=== PATIENT | female | born 1960 | race Caucasian/White ===

== ENCOUNTER 2019-02-18 13:26 | Inpatient (IN) | payer OTHER ==
[~2019-02-18] VITALS: Ht 157.5 cm; Wt 43.6 kg
[~2019-02-18 13:26] MED LIST: ACET325 PO; ALBU90OI INH; ASPI81CH PO; CEPH500 PO; CETI10; CIPR250 PO; DIAZ5 PO; FOLI1 PO; GUAPHELA PO; HYDACE10B PO; HYDACE5 PO; HYDGUAL120 PO; HYDR1TAB94 PO; IBUP800 PO; K-Dur20 MEQ PO; LOPE2C PO; LORA.5; MAGOXI400 PO; MECL25 PO; MULTI VITAMIN1 EACH PO; MULVITMIND PO; Mag-G500 MG PO; NAPR375 PO; NAPR500 PO; NICO14TP TOP; NICO21TP TD; Naprosyn500 MG PO; OXYACE5T PO; PENVK500 PO; POTCHL10ER PO; POTCHL20ER PO; PROCODE120 PO; PROM25 PO; RXHYDACE PO; RXPENVK250 PO; SACC250C PO; SULTRIDS PO; THIA100 PO; TRAM50 PO; Zofran Odt8 MG SL
[2019-02-18] MEDS ORDERED: OMEP20ER PO (14:08)
[2019-02-18 14:10] LABS: BASOPHILS ABSOLUTE AUTO 0.04 K/mm3 (0.00-0.23); BASOPHILS PERCENT AUTO 1 % (0-2); EOSINOPHILS ABSOLUTE AUTO 0.05 K/mm3 (0.00-0.68); EOSINOPHILS PERCENT AUTO 1 % (0-6); Hematocrit 38.8 % (33.0-51.0); Hemoglobin 13.4 g/dL (11.5-16.0); IMMATURE GRAN ABSOLUTE AUTO 0.11 K/mm3 (0.00-0.10); IMMATURE GRAN PERCENT AUTO 1 % (0-1); LYMPHOCYTES ABSOLUTE AUTO 1.55 K/mm3 (0.84-5.20); LYMPHOCYTES PERCENT AUTO 19 % (21-46); MONOCYTES ABSOLUTE AUTO 1.09 K/mm3 (0.16-1.47); MONOCYTES PERCENT AUTO 14 % (4-13); Mean Corpuscular HGB 30.7 pg (26.0-34.0); Mean Corpuscular HGB Conc 34.5 g/dL (31.5-36.5); Mean Corpuscular Volume 89 fL (80-100); Mean Platelet Volume 9.1 fL (9.1-12.4); NEUTROPHILS ABSOLUTE AUTO 5.13 K/mm3 (1.96-9.15); NEUTROPHILS PERCENT AUTO 64 % (41-73); Platelet Count 291 K/mm3 (150-400); RDW Coefficient Variation 12.9 % (11.7-14.2); RDW Standard Deviation 42.4 fL (35.1-46.3); Red Blood Cell Count 4.37 M/mm3 (3.80-5.20); White Blood Cell Count 7.97 K/mm3 (4.00-11.30)
[2019-02-18 14:20] LABS: Alanine Aminotransfer (ALT/SGP 57 U/L (12-78); Albumin, Blood 3.6 g/dL (3.4-5.0); Albumin/Globulin Ratio 0.9 (0.8-1.8); Alk Phos 98 U/L (50-136); Anion Gap 10 mmol/L (6-16); Aspartate Aminotrans (AST/SGOT 73 U/L (12-37); Bilirubin, Total 0.4 mg/dL (0.1-1.0); Blood Urea Nitrogen 5 mg/dL (8-24); CO2, Blood 28 mmol/L (21-32); Calcium, Blood 8.7 mg/dL (8.5-10.1); Chloride, Blood 92 mmol/L (98-108); Creatinine, Blood 0.42 mg/dL (0.40-1.00); Ethanol (Alcohol), Blood, Med <3 mg/dL; Globulin, Blood 3.9 g/dL (2.2-4.0); Glomerular Filtration Rate >60 (60-); Glucose, Blood 144 mg/dL (70-99); Magnesium, Blood 1.7 mg/dL (1.6-2.4); Sodium, Blood 130 mmol/L (136-145); Total Protein, Blood 7.5 g/dL (6.4-8.2)
[2019-02-18 14:21] LABS: International Normalized Ratio 0.98; Prothrombin Time Results 10.4 Sec (9.7-11.5)
--- NOTE | 2019-02-18 17:00 | NUR ---
ASSUMED CARE: PT NEW ADMIT FROM ED. DENIES ABDOMINAL PAIN. STATES SHE HAS 4-6 16OZ BEERS A DAY, LAST ONE THIS AM. STATES SHE HAS TREMORS WITHOUT ALCOHOL. DISCUSSED WITH HER THE NEED FOR HONESTY WITH HER SYMPTOMS AND THAT WE ARE NOT HERE TO CURING ROOM SUPERVISOR BUT TO KEEP HER SAFE. PT INDEPENDENT AT THIS TIME, CIWA 1.
[2019-02-18] MEDS ORDERED: BAYER BACK & B1 EACH PO (17:11)
--- NOTE | 2019-02-18 18:46 | NUR ---
SHIFT SUMMARY: PT ALERT AND ORIENTED BUT FORGETFUL AT TIMES. CURRENT CIWA [address] LUTZ IN ANTICIPATION OF WORSENING CIWA DUE TO TREMULOUS WHEN WITHOUT FOR TOO LONG FAMILY AT BEDSIDE. NO ACUTE NEEDS AT THIS TIME.
--- NOTE | 2019-02-19 04:07 | NUR ---
SHIFT SUMMARY PT HAD NO ISSUES NOTED THIS SHIFT. PT WENT OUT TO SMOKE AND HAS BEEN SLEEPING SINCE RETURNING. PT CURRENTLY SLEEPING IN NO DISTRESS. CALL LIGHT IN REACH.
[2019-02-19 05:24] LABS: BASOPHILS ABSOLUTE AUTO 0.05 K/mm3 (0.00-0.23); BASOPHILS PERCENT AUTO 1 % (0-2); EOSINOPHILS ABSOLUTE AUTO 0.04 K/mm3 (0.00-0.68); EOSINOPHILS PERCENT AUTO 1 % (0-6); Hematocrit 36.1 % (33.0-51.0); Hemoglobin 11.6 g/dL (11.5-16.0); IMMATURE GRAN PERCENT AUTO 2 % (0-1); LYMPHOCYTES ABSOLUTE AUTO 1.59 K/mm3 (0.84-5.20); LYMPHOCYTES PERCENT AUTO 29 % (21-46); MONOCYTES ABSOLUTE AUTO 0.77 K/mm3 (0.16-1.47); MONOCYTES PERCENT AUTO 14 % (4-13); Mean Corpuscular HGB 29.2 pg (26.0-34.0); Mean Corpuscular HGB Conc 32.1 g/dL (31.5-36.5); Mean Corpuscular Volume 91 fL (80-100); NEUTROPHILS ABSOLUTE AUTO 2.95 K/mm3 (1.96-9.15); NEUTROPHILS PERCENT AUTO 54 % (41-73); Platelet Count 207 K/mm3 (150-400); RDW Coefficient Variation 13.2 % (11.7-14.2); RDW Standard Deviation 44.1 fL (35.1-46.3); Red Blood Cell Count 3.97 M/mm3 (3.80-5.20)
[2019-02-19 05:48] LABS: Magnesium, Blood 1.6 mg/dL (1.6-2.4)
[2019-02-19 05:58] LABS: Alanine Aminotransfer (ALT/SGP 43 U/L (12-78); Albumin, Blood 2.8 g/dL (3.4-5.0); Albumin/Globulin Ratio 0.8 (0.8-1.8); Alk Phos 76 U/L (50-136); Anion Gap 6 mmol/L (6-16); Aspartate Aminotrans (AST/SGOT 60 U/L (12-37); Bilirubin, Total 0.3 mg/dL (0.1-1.0); Blood Urea Nitrogen 5 mg/dL (8-24); Bun/Creatinine Ratio 11.4 (12.0-20.0); CO2, Blood 26 mmol/L (21-32); Calcium, Blood 8.1 mg/dL (8.5-10.1); Chloride, Blood 102 mmol/L (98-108); Creatinine, Blood 0.44 mg/dL (0.40-1.00); Globulin, Blood 3.3 g/dL (2.2-4.0); Glomerular Filtration Rate >60 (60-); Glucose, Blood 72 mg/dL (70-99); Potassium, Blood 3.4 mmol/L (3.5-5.5); Sodium, Blood 134 mmol/L (136-145); Total Protein, Blood 6.1 g/dL (6.4-8.2)
--- NOTE | 2019-02-19 07:35 | NUR ---
ASSUMED CARE: PT RESTING QUIETLY AT THIS TIME. NO ACUTE NEEDS OR DISTRESS NOTED
--- NOTE | 2019-02-19 13:00 | NUR ---
DR LUTZ CAME TO SEE PT. AWARE OF LIPASE, STATED PT CAN HAVE FULL LIQUID DIET. ALSO INFORMED DR LUTZ THAT FENTANYL DID NOT HELP WITH PAIN. DR AUGUSTE NEW ORDERS
--- NOTE | 2019-02-19 15:48 | NUR ---
PT'S STATES PAIN MEDS DID NOT HELP AND THAT SHE WOULD LIKE TO HAVE THE DILAUDID AGAIN. TOLD PT THAT DUE TO BEING DISCHARGED HOME EVENTUALLY, WE NEED TO FIND HER AN ORAL PAIN MED THAT WORKS FOR HER. ALSO REMINDED PT THAT SHE HAS BEEN GOING OUT TO SMOKE AND THAT KIND OF ACTIVITY PROBABLY MAKES THE ABDOMINAL PAIN WORSE. OFFERED TO GET HER A NICOTINE PATCH BUT SHE REFUSED.
--- NOTE | 2019-02-19 17:08 | NUR ---
SHIFT SUMMARY: PT'S HIGHEST CIWA HAS BEEN 6. SOME CONFUSION AND AGITATION NOTED. HAS BEEN GOING OUT TO SMOKE FREQUENTLY. MEDICATED X2 FOR PAIN. PT REFUSES NICOTINE PATCH AND PAIN APPEARS TO BE WORSE AFTER SHE GOES OUT TO SMOKE. ADVANCED TO FULL LIQUIDS. NO FURTHER NEEDS OR CONCERNS AT THIS TIME.
[2019-02-20 04:48] LABS: BASOPHILS ABSOLUTE AUTO 0.04 K/mm3 (0.00-0.23); BASOPHILS PERCENT AUTO 1 % (0-2); EOSINOPHILS ABSOLUTE AUTO 0.07 K/mm3 (0.00-0.68); EOSINOPHILS PERCENT AUTO 1 % (0-6); Hemoglobin 12.1 g/dL (11.5-16.0); IMMATURE GRAN ABSOLUTE AUTO 0.12 K/mm3 (0.00-0.10); IMMATURE GRAN PERCENT AUTO 2 % (0-1); LYMPHOCYTES ABSOLUTE AUTO 1.94 K/mm3 (0.84-5.20); LYMPHOCYTES PERCENT AUTO 39 % (21-46); MONOCYTES ABSOLUTE AUTO 0.83 K/mm3 (0.16-1.47); MONOCYTES PERCENT AUTO 17 % (4-13); Mean Corpuscular HGB 29.5 pg (26.0-34.0); Mean Corpuscular HGB Conc 32.7 g/dL (31.5-36.5); Mean Corpuscular Volume 90 fL (80-100); Mean Platelet Volume 9.1 fL (9.1-12.4); NEUTROPHILS ABSOLUTE AUTO 1.93 K/mm3 (1.96-9.15); NEUTROPHILS PERCENT AUTO 39 % (41-73); Platelet Count 206 K/mm3 (150-400); RDW Coefficient Variation 13.2 % (11.7-14.2); White Blood Cell Count 4.93 K/mm3 (4.00-11.30)
--- NOTE | 2019-02-20 05:00 | NUR ---
SHIFT SUMMARY PT HAD SOME ABD PAIN. TX PER EMAR WITH GOOD RELIEF. PT IS FORGETFUL AND HAS SHORT PERIODS OF CONFUSION. PT SLEPT T/O SHIFT. PT CURRENTLY AWAKE IN NO DISTRESS. CALL LIGHT IN REACH.
[2019-02-20 05:18] LABS: Alanine Aminotransfer (ALT/SGP 43 U/L (12-78); Albumin, Blood 2.8 g/dL (3.4-5.0); Albumin/Globulin Ratio 0.9 (0.8-1.8); Alk Phos 72 U/L (50-136); Anion Gap 8 mmol/L (6-16); Aspartate Aminotrans (AST/SGOT 58 U/L (12-37); Bilirubin, Total 0.3 mg/dL (0.1-1.0); Blood Urea Nitrogen 3 mg/dL (8-24); Bun/Creatinine Ratio 7.7 (12.0-20.0); CO2, Blood 24 mmol/L (21-32); Calcium, Blood 8.1 mg/dL (8.5-10.1); Chloride, Blood 107 mmol/L (98-108); Creatinine, Blood 0.39 mg/dL (0.40-1.00); Globulin, Blood 3.1 g/dL (2.2-4.0); Glomerular Filtration Rate >60 (60-); Glucose, Blood 69 mg/dL (70-99); Phosphorus, Blood 2.8 mg/dL (2.5-4.9); Potassium, Blood 3.5 mmol/L (3.5-5.5); Sodium, Blood 139 mmol/L (136-145); Total Protein, Blood 5.9 g/dL (6.4-8.2)
--- NOTE | 2019-02-20 08:41 | NUR ---
CALLED DR. BLAIR PT IS REQUESTING ADVANCE IN HER DIET. DR. BLAIR WILL BE IN TO SEE PATIENT THIS A.M. NO NEW ORDERS RECEIVED.
--- NOTE | 2019-02-20 10:29 | NUR ---
ATE APPROXIMATELY 25% OF REGULAR DIET APPROX 1 HOUR AGO. SITTING UP BED STATES "I'M NOT HAVING ANY PAIN I FEEL JUST FINE" TALKING WITH ALETHEA SET OFF PRESS OPERATOR. NO NAUSEA, VOMITING OR ABDOMINAL PAIN. OUT TO SMOKE X1.
[2019-02-20] MEDS ORDERED: NEPHRO-VITE RX1 EACH PO (11:34)
[2019-02-20] MEDS ORDERED: FOLI1 PO (11:35)
[2019-02-20] MEDS ORDERED: B-1100 MG PO (11:36)
[2019-02-20] MEDS ORDERED: ONDA4ODT (11:37)
[2019-02-20] MEDS ORDERED: ONDA4ODT MM (11:38)
[2019-02-20] MEDS ORDERED: HYDR1TAB94 PO (11:39)
[2019-02-20] MEDS ORDERED: OMEP20ER PO (11:40)
--- NOTE | 2019-02-20 13:20 | NUR ---
RFA IV DISCONTINUED AND WNL. SITE CARE GIVEN.
--- NOTE | 2019-02-20 13:28 | NUR ---
PT WAITING FOR RIDE FROM FAMILY.
--- NOTE | 2019-02-20 14:43 | NUR ---
DISCHARGE NOTE PT DISCHARGED AMBULATORY POV WITH SISTER. IV DISCONTINUED INTACT. PT VERBALIZED UNDERSTANDING OF DISCHARGE INSTRUCTIONS AND AGREED TO TAKE MEDICATIONS (FAXED TO [place]) PRESCRIBED. PT AWARE THAT SHE SHOULD ABSTAIN FROM ALL FORMS OF ALCOHOL USE. PAPER RX FOR NARCOTICS AND ALL PT BELONGINGS PROVIDED TO PT PRIOR TO DISCHARGE.
== END 2019-02-20 14:20 | disposition home or self-care (01) | DRG 439 ==
LOC: ER 13:26 → MEDS 16:00
PROVIDERS: Emergency Medicine; ADMIT Internal Medicine
DX: K85.20 Alcohol induced acute pancreatitis without necrosis or infection (principal); E46 Unspecified protein-calorie malnutrition; F10.19 Alcohol abuse with unspecified alcohol-induced disorder; E87.6 Hypokalemia; J44.9 Chronic obstructive pulmonary disease, unspecified; F17.200 Nicotine dependence, unspecified, uncomplicated; Z68.21 Body mass index [BMI] 21.0-21.9, adult
CPT/HCPCS: 36415; 80053; 82728; 83540; 83550; 83690; 83735; 84100; 84439; 84443; 85025; 85610; 93005; 93010; 96365; 96375; 99285-25; A9270-GY; C9113; G0480; J1170; J1650; J2405; J3010; J3475; J3480; J7030

== ENCOUNTER 2019-02-23 17:39 | Inpatient (IN) | payer OTHER ==
[~2019-02-23] VITALS: Ht 157.5 cm; Wt 42.4 kg
[~2019-02-23 17:39] MED LIST changes: +B-1100 MG PO; +BAYER BACK & B1 EACH PO; +NEPHRO-VITE RX1 EACH PO; +OMEP20ER PO; +ONDA4ODT; +ONDA4ODT MM
[2019-02-23 18:33] LABS: BASOPHILS ABSOLUTE AUTO 0.04 K/mm3 (0.00-0.23); BASOPHILS PERCENT AUTO 1 % (0-2); EOSINOPHILS ABSOLUTE AUTO 0.04 K/mm3 (0.00-0.68); EOSINOPHILS PERCENT AUTO 1 % (0-6); Hematocrit 36.6 % (33.0-51.0); Hemoglobin 12.3 g/dL (11.5-16.0); IMMATURE GRAN ABSOLUTE AUTO 0.02 K/mm3 (0.00-0.10); IMMATURE GRAN PERCENT AUTO 0 % (0-1); LYMPHOCYTES ABSOLUTE AUTO 1.84 K/mm3 (0.84-5.20); LYMPHOCYTES PERCENT AUTO 28 % (21-46); MONOCYTES ABSOLUTE AUTO 0.94 K/mm3 (0.16-1.47); MONOCYTES PERCENT AUTO 14 % (4-13); Mean Corpuscular HGB 30.1 pg (26.0-34.0); Mean Corpuscular HGB Conc 33.6 g/dL (31.5-36.5); Mean Corpuscular Volume 90 fL (80-100); Mean Platelet Volume 9.2 fL (9.1-12.4); NEUTROPHILS ABSOLUTE AUTO 3.77 K/mm3 (1.96-9.15); NEUTROPHILS PERCENT AUTO 57 % (41-73); Platelet Count 242 K/mm3 (150-400); RDW Coefficient Variation 13.6 % (11.7-14.2); RDW Standard Deviation 44.7 fL (35.1-46.3); Red Blood Cell Count 4.08 M/mm3 (3.80-5.20); White Blood Cell Count 6.65 K/mm3 (4.00-11.30)
[2019-02-23 18:52] LABS: Alanine Aminotransfer (ALT/SGP 36 U/L (12-78); Albumin, Blood 3.3 g/dL (3.4-5.0); Albumin/Globulin Ratio 0.8 (0.8-1.8); Alk Phos 78 U/L (50-136); Anion Gap 5 mmol/L (6-16); Aspartate Aminotrans (AST/SGOT 44 U/L (12-37); Bilirubin, Total 0.2 mg/dL (0.1-1.0); Blood Urea Nitrogen 7 mg/dL (8-24); CO2, Blood 29 mmol/L (21-32); Calcium, Blood 9.2 mg/dL (8.5-10.1); Chloride, Blood 100 mmol/L (98-108); Creatinine, Blood 0.44 mg/dL (0.40-1.00); Globulin, Blood 3.9 g/dL (2.2-4.0); Glomerular Filtration Rate >60 (60-); Glucose, Blood 115 mg/dL (70-99); Potassium, Blood 3.3 mmol/L (3.5-5.5); Sodium, Blood 134 mmol/L (136-145); Total Protein, Blood 7.2 g/dL (6.4-8.2)
[2019-02-23 22:38] LABS: Source, Urine Clean Catch
[2019-02-23 22:40] LABS: Bilirubin, Urine Neg (Neg); Blood, Urine Neg (Neg); Glucose Qualitative, Urine Neg (Neg); Ketones, Urine Neg (Neg); Leukocyte Esterase, Urine Neg (Neg); Nitrite, Urine Neg (Neg); Protein, Urine Neg (Neg); Urobilinogen, Urine NORM (Normal)
[2019-02-23 22:48] LABS: Appearance, Urine Clear (Clear); Color, Urine Yellow (P-Yellow)
[2019-02-23 22:51] LABS: U Amphetamine Screen Not Detected; U Barbituate Screen Not Detected; U Benzodiazapine Screen DETECTED; U Buprenorphine Screen Not Detected; U Cannabinoids Screen DETECTED; U Cocaine Screen Not Detected; U Methadone Screen Not Detected; U Methamphetamine Screen Not Detected; U Opiates Screen DETECTED; U Oxycodone Screen Not Detected; U Phencyclidine Screen Not Detected; U Propoxyphene Screen Not Detected
[2019-02-24 00:05] LABS: Prothrombin Time Results 10.6 Sec (9.7-11.5)
[2019-02-24 05:43] LABS: Alanine Aminotransfer (ALT/SGP 33 U/L (12-78); Albumin, Blood 2.9 g/dL (3.4-5.0); Albumin/Globulin Ratio 0.8 (0.8-1.8); Alk Phos 71 U/L (50-136); Anion Gap 8 mmol/L (6-16); Aspartate Aminotrans (AST/SGOT 29 U/L (12-37); Bilirubin, Total 0.2 mg/dL (0.1-1.0); Blood Urea Nitrogen 5 mg/dL (8-24); CO2, Blood 30 mmol/L (21-32); Calcium, Blood 8.4 mg/dL (8.5-10.1); Chloride, Blood 101 mmol/L (98-108); Creatinine, Blood 0.42 mg/dL (0.40-1.00); Globulin, Blood 3.5 g/dL (2.2-4.0); Glomerular Filtration Rate >60 (60-); Glucose, Blood 86 mg/dL (70-99); Potassium, Blood 2.7 mmol/L (3.5-5.5); Sodium, Blood 139 mmol/L (136-145); Total Protein, Blood 6.4 g/dL (6.4-8.2)
--- NOTE | 2019-02-24 08:39 | NUR ---
ADMIT NOTE/SHIFT SUMMARY PATIENT ADMITTED FROM THE ER EARLIER THIS SHIFT. PATIENT ABLE TO TRANSFER SELF OVER FROM THE BED TO THE [facility] WITH ONE ASSIST. PATIENT ABLE TO MOVE SELF ABOUT WELL IN BED. PATIENT'S IV FLUIDS RUNNING PER ORDERS. PATIENT MEDICATED FOR ABD PAIN PER EMAR. PATIENT ASKED FOR PAIN MEDICATION SEVERAL TIMES BUT WOULD QUICKLY FALL BACK ASLEEP AGAIN. PATIENT REPORTED THAT SHE USES MARIJUANA AT HOME TO HELP INCREASE HER APPITITE. VITAL SIGNS CHARTED. PATIENT APPEARED TO SLEEP WELL FOR SEVERAL HOURS AFTER ADMIT WAS DONE. REPORT GIVEN TO ONCOMING RN.
--- NOTE | 2019-02-24 08:46 | NUR ---
NURSE ADMINISTERED LOVENOX PER EMAR AT 0816. WHEN NURSE WAS EXPLAINING MEDICATION AND INDICATIONS, PT WAS PREVIOUSLY UNAWARE OF HER ADMITTING DIAGNOSIS. PT IS NOW UPSET, CRYING AND DEMANDING TO "GO OUTSIDE TO SMOKE." NURSE HONORED PT WISHED AND UNHOOKED HER FROM IV FLUIDS DESPITE EDUCATION ABOUT INDICATIONS FOR FLUIDS AT THIS TIME. RISKS INCLUDING LOSING IV ACCESS. PT STATES THAT SHE "IS GOING OUT SIDE REGARDLESS." PT UP TO WHEELCHAIR AND OUTSIDE WITH SIGNIFICANT OTHER WHO IS ALSO VISUALLY UPSET. NURSE CALLED DR MICHELE TO NOTIFY HIM. HE STATES THAT HE WILL COME SPEAK TO HER SOON.
--- NOTE | 2019-02-24 14:56 | NUR ---
PT AGGITATED, CIWA OF 8, MEDICATED PER EMAR. PT COMPLAINS OF CONSTIPATION THOUGH PREVIOUSLY MEDICATED PER EMAR. NOTIFIED AT 7025. NEW ORDER OF GLYCERIN SUPPOSITORY ORDERED AND TO BE GIVEN. PT DEMANDING TO BE UNHOOKED FROM FLUIDS TO GO OUTSIDE TO SMOKE. REFUSES NICOTINE PATCH. NURSE EDUCATED PT ABOUT THE NEED FOR HER FLUIDS AND THAT POTASSIUM AND LR ARE RUNNING AT THIS TIME. PT IRRITABLE AND CONTEMPLATING LEAVING AGAINST MEDICAL ADVICE. DR MICHELE ALSO NOTIFIED.
--- NOTE | 2019-02-24 17:25 | NUR ---
Pal Spiritual Care inital note: Roula was tearful throughout visit. "I have a growth." She admits she is fearful about treatment. she hs been told "it probably not cancer." She also admits, "I drank myself sick." She is remorseful, but doesn't think she will change life-style. Her children and grandkids are her reason for living, and she is hoping for more quality time b/c "I have so much more to teach them." She feels well supported by family. She is a non-practicing [employer] and states she has "enough believers in my family, so I don't need to." She responded well to emotional affirmation and assurance of care. Roula admits she is unclear exactly what is going on with her physically. I suspect she will benefit from a clinician explaining to her in simple terms about her illness and its path. She appears quite frail. No family present at time of visit. I will remain available.
--- NOTE | 2019-02-24 18:01 | NUR ---
SHIFT SUMMARY PT AXO TO SELF, PLACE AND FOLLOWING DIRECTIONS THOUGH IRRITABLE AND ANXIOUS AT TIMES. PT ALSO FORGETFUL AND CONFUSED AT TIMES. SEE PRIOR NOTES. CIWA OF 8 AT 1434 AND 6 AT THIS TIME. PT MEDICATED PER EMAR FOR WITHDRAWL. PT DEMANDING TO GO OUTSIDE TO SMOKE, SEE PRIOR NOTE. VSS. PT DENIES SOB AND NV. PT HAD FREQUENT INCONTINENT VOIDS IN BED. MEDICATED PER EMAR FOR CONSTIPATION. BED IN LOW POSITION, BED ALARM ON, CALL LIGHT WITHIN REACH.
--- NOTE | 2019-02-24 21:10 | NUR ---
02/24/191999 PT SLEEPING WELL. MACHINE FORMER TOOK VITALS EARLIER AND PT DID NOT C/O ANYTHING. WILL MONITOR AGAIN LATER. VITALS STABLE.
--- NOTE | 2019-02-25 02:42 | NUR ---
PT VOMITED LARGE AMOUNT YELLOW/GREEN FLUID THROUGHOUT ENTIRE ROOM, DR WEEKS NOTIFIED WITH ORDERS ZOFRAN 4MG, IVP X 1.
[2019-02-25 05:35] LABS: BASOPHILS ABSOLUTE AUTO 0.03 K/mm3 (0.00-0.23); BASOPHILS PERCENT AUTO 0 % (0-2); EOSINOPHILS ABSOLUTE AUTO 0.03 K/mm3 (0.00-0.68); EOSINOPHILS PERCENT AUTO 0 % (0-6); Hematocrit 33.8 % (33.0-51.0); Hemoglobin 11.3 g/dL (11.5-16.0); IMMATURE GRAN ABSOLUTE AUTO 0.04 K/mm3 (0.00-0.10); IMMATURE GRAN PERCENT AUTO 1 % (0-1); LYMPHOCYTES ABSOLUTE AUTO 1.51 K/mm3 (0.84-5.20); LYMPHOCYTES PERCENT AUTO 22 % (21-46); MONOCYTES ABSOLUTE AUTO 0.67 K/mm3 (0.16-1.47); MONOCYTES PERCENT AUTO 10 % (4-13); Mean Corpuscular HGB 29.5 pg (26.0-34.0); Mean Corpuscular HGB Conc 33.4 g/dL (31.5-36.5); Mean Corpuscular Volume 88 fL (80-100); Mean Platelet Volume 8.9 fL (9.1-12.4); NEUTROPHILS ABSOLUTE AUTO 4.56 K/mm3 (1.96-9.15); NEUTROPHILS PERCENT AUTO 67 % (41-73); Platelet Count 224 K/mm3 (150-400); RDW Coefficient Variation 13.6 % (11.7-14.2); RDW Standard Deviation 43.8 fL (35.1-46.3); Red Blood Cell Count 3.83 M/mm3 (3.80-5.20); White Blood Cell Count 6.84 K/mm3 (4.00-11.30)
[2019-02-25 05:58] LABS: Alanine Aminotransfer (ALT/SGP 30 U/L (12-78); Albumin, Blood 2.6 g/dL (3.4-5.0); Albumin/Globulin Ratio 0.8 (0.8-1.8); Alk Phos 71 U/L (50-136); Amylase, Blood 115 U/L (25-115); Anion Gap 7 mmol/L (6-16); Aspartate Aminotrans (AST/SGOT 41 U/L (12-37); Bilirubin, Total 0.3 mg/dL (0.1-1.0); Blood Urea Nitrogen 5 mg/dL (8-24); Bun/Creatinine Ratio 12.2 (12.0-20.0); CO2, Blood 32 mmol/L (21-32); Calcium, Blood 8.3 mg/dL (8.5-10.1); Chloride, Blood 100 mmol/L (98-108); Creatinine, Blood 0.41 mg/dL (0.40-1.00); Globulin, Blood 3.3 g/dL (2.2-4.0); Glomerular Filtration Rate >60 (60-); Glucose, Blood 96 mg/dL (70-99); Magnesium, Blood 1.2 mg/dL (1.6-2.4); Potassium, Blood 3.1 mmol/L (3.5-5.5); Sodium, Blood 139 mmol/L (136-145); Total Protein, Blood 5.9 g/dL (6.4-8.2)
--- NOTE | 2019-02-25 07:26 | NUR ---
02/25/19 0600 PT HAD ONE EPISODE OF NAUSEA AND VOMITING WHILE RN WAS AT LUNCH. MEDICATED FOR NAUSEA BY BASILIO COTTRELL. FEELING BETTER NOW WITH ONLY SLIGHT NAUSEA WHEN ASKED. VUITALS STABLE. CIWA SCORE HAS BEEN LOW THIS SHIFT. MEDICATED ONCE FOR PAIN SEE SEP.
--- NOTE | 2019-02-25 15:07 | NUR ---
Initial Visit: Palliative Care Consult for Advanced Care Planning. Pt is A&O and denies pain at this time. Pt appears anxious as evidenced by grabbing her purse and interupting when attempting conversations of topic. Pt denies dyspnea and nausea. Attempted to engage in therapeutic discussion regarding advanced care planning. Pt reports plan to discharge today and states "the doctor told me if I start eating then I can go home". "I have eaten twice today". Attempted to discuss disease process and the importance for complying with Dr recommendations including the importance of alcohol cessation when on anticoagulants. Pt sates "I know, I know". I'm going to quit drinking. Pt appears to not be ready for therapeutic discussion at this time. Spoke with bedside nurse Luz and discussed case. Palliative Care will remain available.
--- NOTE | 2019-02-25 17:59 | NUR ---
PATIENT HAS REQUESTED TO GO OUT TO SMOKE . FAMILY WAS PRESENT AND WAS ABLE TO TAKE HER OUT TO SMOKE. BOTH DOCTOR AND AIDE REPORTED SMELLING ALCOHOL ON HER WHEN SHE RETURNED FROM SMOKING. FAMILY DENIES GIVING HER ANY WHEN THIS NURSE ASKED ABOUT IT. PATIENT WAS EDUCATED REGARDING HER CONDITION AND THE EFFECTS ETOH WOULD HAVE ON HER IMPROVING. SHE STATED SHE HAS DRANK FOR 20 YEARS AND DIDNT PLAN ON QUITTING . 1715 PATIENT STATED SHE WANTED TO GO OUT AND SMOKE AGAIN. SHE WAS MORE AGIATED AT THIS TIME. THIS NURSE EXPLAINED SINCE IT HAD BEEN 3 DAYS (PATIENT PREVIOULSY DENIED DRINKING ) SINCE THE PATIENT HAD ANYTHING TO DRINK AND THAT HER BODY WAS DETOXING RESULTING IN HER BEING AN INCREASED FALLS RISK, SHE WOULD NEED TO HAVE SOME ONE WHEEL HER DOWN . SHE CALLED HER SISTER AND FROM THE ONE SIDE OF THE CONVERSATION IT DID NOT SOUND LIKE SHE WAS ABLE TO COME. PATIENT CONTINUED TO BECOME MORE AGITATED. WHILE THIS NURSE WAS AWAY THE PATIENT WALKED HERSELF OUT. THIS NURSE ATTEMPTED TO CALL THE SON AMBERLY BUT HIS MAIL BOX WAS FULL AND NO MESSAGE WAS ABLE TO BE DELIVERED. AT THIS TIME (180) SHE HAS NOT RETURNED TO HER ROOM. HER PURSE IS IN THE ROOM SO ITS THIS NURSES OPINION THAT SHE WILL RETURN .
--- NOTE | 2019-02-26 03:03 | NUR ---
SHIFT SUMMARY PT IS ALERT AND ORIENTED TO PERSON AND PLACE ONLY. PT REMAINS INDEPENDENT IN THE ROOM SHE IS STEADY ON HER FEET. PT DID LEAVE THE FLOOR WITH FAMILY VIA WHEELCHAIR. WHEN SHE CAME BACK, PT SMELLED SLIGHTLY OF ETOH. UPON QUESTIONING PT WHETHER OR NOT SHE CONSUMED ANY ETOH, PT DENIED IT. PT ONLY SCORING ON CIWA FOR CONFUSION, SHE IS ABLE TO DO SERIAL ADDITION. PT'S PAIN MANAGED BY ORDERED ANALGESICS. NO OTHER COMPLAINTS AT THIS TIME. VSS. WILL CONTINUE TO MONITOR.
[2019-02-26 05:46] LABS: BASOPHILS ABSOLUTE AUTO 0.04 K/mm3 (0.00-0.23); BASOPHILS PERCENT AUTO 1 % (0-2); EOSINOPHILS ABSOLUTE AUTO 0.09 K/mm3 (0.00-0.68); EOSINOPHILS PERCENT AUTO 2 % (0-6); Hematocrit 35.3 % (33.0-51.0); Hemoglobin 11.6 g/dL (11.5-16.0); IMMATURE GRAN ABSOLUTE AUTO 0.04 K/mm3 (0.00-0.10); IMMATURE GRAN PERCENT AUTO 1 % (0-1); LYMPHOCYTES ABSOLUTE AUTO 2.06 K/mm3 (0.84-5.20); LYMPHOCYTES PERCENT AUTO 38 % (21-46); MONOCYTES ABSOLUTE AUTO 0.94 K/mm3 (0.16-1.47); MONOCYTES PERCENT AUTO 17 % (4-13); Mean Corpuscular HGB 29.5 pg (26.0-34.0); Mean Corpuscular HGB Conc 32.9 g/dL (31.5-36.5); Mean Corpuscular Volume 90 fL (80-100); Mean Platelet Volume 9.1 fL (9.1-12.4); NEUTROPHILS ABSOLUTE AUTO 2.33 K/mm3 (1.96-9.15); NEUTROPHILS PERCENT AUTO 42 % (41-73); Platelet Count 229 K/mm3 (150-400); RDW Standard Deviation 46.3 fL (35.1-46.3); Red Blood Cell Count 3.93 M/mm3 (3.80-5.20)
[2019-02-26 06:12] LABS: Amylase, Blood 128 U/L (25-115)
[2019-02-26 06:16] LABS: Alanine Aminotransfer (ALT/SGP 34 U/L (12-78); Albumin, Blood 2.8 g/dL (3.4-5.0); Albumin/Globulin Ratio 0.8 (0.8-1.8); Alk Phos 69 U/L (50-136); Anion Gap 6 mmol/L (6-16); Aspartate Aminotrans (AST/SGOT 47 U/L (12-37); Bilirubin, Total 0.3 mg/dL (0.1-1.0); Blood Urea Nitrogen 6 mg/dL (8-24); Bun/Creatinine Ratio 12.7 (12.0-20.0); CO2, Blood 30 mmol/L (21-32); Calcium, Blood 8.5 mg/dL (8.5-10.1); Chloride, Blood 103 mmol/L (98-108); Creatinine, Blood 0.47 mg/dL (0.40-1.00); Globulin, Blood 3.3 g/dL (2.2-4.0); Glomerular Filtration Rate >60 (60-); Glucose, Blood 79 mg/dL (70-99); Potassium, Blood 3.6 mmol/L (3.5-5.5); Sodium, Blood 139 mmol/L (136-145); Total Protein, Blood 6.1 g/dL (6.4-8.2)
[2019-02-26 10:23] LABS: International Normalized Ratio 1.08; Prothrombin Time Results 11.4 Sec (9.7-11.5)
--- NOTE | 2019-02-26 17:19 | NUR ---
SUMMARY-PT ALERT TO SELF, PLACE AND YEAR. FORGETFUL AT TIMES. AMBULATES SBA TO BATHROOM. HAD A BM TODAY, LOOSE X2 2ND WITH MORE FORM. TOLERATING FOOD AND FLUIDS. WILL CALL TO SEE IF IVF COULD BE DC'D. GIVEN OXYCODONE ORAL FOR PAIN. PT STATES MIN RELEIF. CALLS FOR PAIN MEDS FREQ AND FORGETS WHEN AND WHAT SHE WAS GIVEN. AFTER SHE CAME BACK UP FROM HER CIGARETTE BREAK OUTSIDE, PT APPEARED INTOXICATED AND WAS INCREASING FORGETFUL NOT REMEMBERING THE RN OR GOLD BUYER OR ANY DETAILS. SLURRED SPEECH AND POOR EYE FOCUS. WILL NOTIFY PROVIDER.
--- NOTE | 2019-02-26 19:10 | NUR ---
Pal Spiritual Care routine visit: Roula was talkative and tearful today. She understands she will need to quit drinking to be able to take required medication. She wants to live, and states she will do what she needs to to ensure more time with her children/grandkids. We spoke for a long time about addiction and her struggles. I complimented her on her strength, and encouraged using her stubborness for her benefit. She responded well to emotional affirmation and gentle counselor nurses' association. Roula will benefit from continued emotional counselor nurses' association/support. [facility] will remain available.
--- NOTE | 2019-02-26 19:35 | NUR ---
[facility] patient briefly . to painfull to have a conversation. advised nursing. will follow upw with pt to review plan .
--- NOTE | 2019-02-27 04:19 | NUR ---
SHIFT SUMMARY: 58 Y/O FEMALE RESTED COMFORTABLY ALL SHIFT WITH OCCASIONAL C/O ABD PAIN EVERY 4 HOURS (PATIENT WATCHES CLOCK AND REQUESTS PAIN MEDS WHEN AVAILABLE) FOR ABDOMINAL PAIN RATED 6/10 WITH OXYCODONE 5MG PO GIVEN WITH RELIEF FELT, UP INDEPENDENTLY TO BATHROOM WITH GAIT STEADY AND EVEN, NO EVENTS SMOKING OUTSIDE THIS SHIFT NO FAMILY MEMBERS WERE PRESENT, BED LOW POSITION, CALL LIGHT AT SIDE.
[2019-02-27 05:14] LABS: BASOPHILS ABSOLUTE AUTO 0.04 K/mm3 (0.00-0.23); BASOPHILS PERCENT AUTO 1 % (0-2); EOSINOPHILS ABSOLUTE AUTO 0.11 K/mm3 (0.00-0.68); EOSINOPHILS PERCENT AUTO 2 % (0-6); Hematocrit 34.2 % (33.0-51.0); Hemoglobin 11.3 g/dL (11.5-16.0); IMMATURE GRAN ABSOLUTE AUTO 0.03 K/mm3 (0.00-0.10); IMMATURE GRAN PERCENT AUTO 1 % (0-1); LYMPHOCYTES ABSOLUTE AUTO 1.95 K/mm3 (0.84-5.20); LYMPHOCYTES PERCENT AUTO 34 % (21-46); MONOCYTES ABSOLUTE AUTO 0.76 K/mm3 (0.16-1.47); MONOCYTES PERCENT AUTO 13 % (4-13); Mean Corpuscular HGB 29.6 pg (26.0-34.0); Mean Corpuscular Volume 90 fL (80-100); NEUTROPHILS ABSOLUTE AUTO 2.87 K/mm3 (1.96-9.15); NEUTROPHILS PERCENT AUTO 50 % (41-73); Platelet Count 222 K/mm3 (150-400); RDW Coefficient Variation 13.8 % (11.7-14.2); RDW Standard Deviation 45.1 fL (35.1-46.3); Red Blood Cell Count 3.82 M/mm3 (3.80-5.20); White Blood Cell Count 5.76 K/mm3 (4.00-11.30)
[2019-02-27 05:25] LABS: Amylase, Blood 77 U/L (25-115)
[2019-02-27 05:27] LABS: Prothrombin Time Results 19.9 Sec (9.7-11.5)
[2019-02-27] MEDS ORDERED: ACET325 PO (12:50)
[2019-02-27] MEDS ORDERED: Nicoderm Cq1 EAC1 TOP (12:51)
[2019-02-27] MEDS ORDERED: DOCU100 PO (12:51)
[2019-02-27] MEDS ORDERED: MIRALAX17 GM PO (12:52)
[2019-02-27] MEDS ORDERED: WARF5 PO (12:58)
[2019-02-27] MEDS ORDERED: XARELTO15 MG PO (13:11)
--- NOTE | 2019-02-27 13:42 | NUR ---
1340 PATIENT TO DISCHARGE HOME. IV WAS REMOVED , NO SS OF INFECTION NOTED. MEDS FAXED INTO PHARMACY OF CHOICE. PATIENT INSTRUCTED THAT DOCTORS OFFICE WILL FOLLOW UP HER TO MAKE APPOINTMENT. SHE WAS EDUCATED REGARDING THE MEDICINE SHE WAS BEING SENT HOME ON AND THE IMPORTANCE OF TAKING IT FOR THE TIME ORDERED BY THE DOCTOR. EDUCATION MATERIAL WAS PROVIDED TO PATIENT. PATIENT WAS EDUCATED REGARDING HER ETOH ABUSE AND ENCOURAGED TO GO TO TREATMENT. PATIENT CALLED HER BOYFRIEND TO COME GET HER.
--- NOTE | 2019-02-27 17:02 | NUR ---
will follow up with patient on seeing if she can work with a sponser.
== END 2019-02-27 16:12 | disposition home or self-care (01) | DRG 441 ==
LOC: ER 17:39 → MEDS 23:53
PROVIDERS: Emergency Medicine; Family Medicine; ADMIT Hospitalist
DX: I81 Portal vein thrombosis (principal); K85.90 Acute pancreatitis without necrosis or infection, unspecified; K86.2 Cyst of pancreas; E44.1 Mild protein-calorie malnutrition; J44.9 Chronic obstructive pulmonary disease, unspecified; F10.10 Alcohol abuse, uncomplicated; B18.2 Chronic viral hepatitis C; K70.30 Alcoholic cirrhosis of liver without ascites; F17.200 Nicotine dependence, unspecified, uncomplicated; Z68.20 Body mass index [BMI] 20.0-20.9, adult
CPT/HCPCS: 36415; 74177; 80053; 81003; 82140; 82150; 83690; 83735; 85025; 85610; 85730; 96361; 96365-59; 96375; 99285-25; A9270; G0480; J1170; J1644; J1650; J2405; J3010; J3475; J3480; J7030; J7120; Q9967

== ENCOUNTER 2019-03-02 18:20 | Emergency (ER) | payer OTHER ==
[~2019-03-02] VITALS: Ht 157.5 cm; Wt 49.4 kg
[~2019-03-02 18:20] MED LIST changes: +DOCU100 PO; +MIRALAX17 GM PO; +Nicoderm Cq1 EAC1 TOP; +WARF5 PO; +XARELTO15 MG PO
[2019-03-02] MEDS ORDERED: ONDA4ODT MM (18:45)
[2019-03-02 19:16] LABS: BASOPHILS ABSOLUTE AUTO 0.02 K/mm3 (0.00-0.23); BASOPHILS PERCENT AUTO 0 % (0-2); EOSINOPHILS ABSOLUTE AUTO 0.09 K/mm3 (0.00-0.68); EOSINOPHILS PERCENT AUTO 1 % (0-6); Hemoglobin 11.8 g/dL (11.5-16.0); IMMATURE GRAN ABSOLUTE AUTO 0.04 K/mm3 (0.00-0.10); IMMATURE GRAN PERCENT AUTO 0 % (0-1); LYMPHOCYTES ABSOLUTE AUTO 2.22 K/mm3 (0.84-5.20); LYMPHOCYTES PERCENT AUTO 25 % (21-46); MONOCYTES ABSOLUTE AUTO 0.95 K/mm3 (0.16-1.47); MONOCYTES PERCENT AUTO 11 % (4-13); Mean Corpuscular HGB 30.1 pg (26.0-34.0); Mean Corpuscular HGB Conc 32.8 g/dL (31.5-36.5); Mean Corpuscular Volume 92 fL (80-100); Mean Platelet Volume 9.2 fL (9.1-12.4); NEUTROPHILS ABSOLUTE AUTO 5.62 K/mm3 (1.96-9.15); NEUTROPHILS PERCENT AUTO 63 % (41-73); Platelet Count 298 K/mm3 (150-400); RDW Coefficient Variation 14.1 % (11.7-14.2); RDW Standard Deviation 47.8 fL (35.1-46.3); Red Blood Cell Count 3.92 M/mm3 (3.80-5.20); White Blood Cell Count 8.94 K/mm3 (4.00-11.30)
[2019-03-02 19:34] LABS: Alanine Aminotransfer (ALT/SGP 32 U/L (12-78); Albumin, Blood 3.3 g/dL (3.4-5.0); Albumin/Globulin Ratio 0.9 (0.8-1.8); Alk Phos 84 U/L (50-136); Amylase, Blood 143 U/L (25-115); Anion Gap 5 mmol/L (6-16); Aspartate Aminotrans (AST/SGOT 34 U/L (12-37); Bilirubin, Total 0.3 mg/dL (0.1-1.0); Blood Urea Nitrogen 9 mg/dL (8-24); Bun/Creatinine Ratio 16.5 (12.0-20.0); CO2, Blood 25 mmol/L (21-32); Calcium, Blood 9.1 mg/dL (8.5-10.1); Chloride, Blood 103 mmol/L (98-108); Creatinine, Blood 0.55 mg/dL (0.40-1.00); Globulin, Blood 3.8 g/dL (2.2-4.0); Glomerular Filtration Rate >60 (60-); Glucose, Blood 90 mg/dL (70-99); Potassium, Blood 3.9 mmol/L (3.5-5.5); Sodium, Blood 133 mmol/L (136-145); Total Protein, Blood 7.1 g/dL (6.4-8.2)
[2019-03-02] MEDS ORDERED: Roxicodone5 MG PO (21:01)
== END 2019-03-02 21:10 | disposition home or self-care (01) ==
LOC: ER 18:20
PROVIDERS: Physician Assistant
DX: K85.90 Acute pancreatitis without necrosis or infection, unspecified (principal); F10.10 Alcohol abuse, uncomplicated; Y90.0 Blood alcohol level of less than 20 mg/100 ml; F17.210 Nicotine dependence, cigarettes, uncomplicated; Z79.899 Other long term (current) drug therapy; Z79.891 Long term (current) use of opiate analgesic; Z79.01 Long term (current) use of anticoagulants
CPT/HCPCS: 36415; 80053; 82150; 83690; 85025; 96374; 99284-25; G0480; J1885

== ENCOUNTER → 2019-03-10 | Outpatient (CLI) | payer OTHER ==
[~2019-03-10] MED LIST changes: +ONDA4ODT SL; +POTA10T PO; +Roxicodone5 MG PO
[2019-03-10 19:06] LABS: BASOPHILS ABSOLUTE AUTO 0.03 K/mm3 (0.00-0.23); BASOPHILS PERCENT AUTO 0 % (0-2); EOSINOPHILS ABSOLUTE AUTO 0.08 K/mm3 (0.00-0.68); EOSINOPHILS PERCENT AUTO 1 % (0-6); Hematocrit 36.7 % (33.0-51.0); Hemoglobin 12.2 g/dL (11.5-16.0); IMMATURE GRAN ABSOLUTE AUTO 0.07 K/mm3 (0.00-0.10); IMMATURE GRAN PERCENT AUTO 1 % (0-1); LYMPHOCYTES ABSOLUTE AUTO 2.05 K/mm3 (0.84-5.20); LYMPHOCYTES PERCENT AUTO 30 % (21-46); MONOCYTES ABSOLUTE AUTO 0.83 K/mm3 (0.16-1.47); MONOCYTES PERCENT AUTO 12 % (4-13); Mean Corpuscular HGB 29.5 pg (26.0-34.0); Mean Corpuscular HGB Conc 33.2 g/dL (31.5-36.5); NEUTROPHILS ABSOLUTE AUTO 3.88 K/mm3 (1.96-9.15); NEUTROPHILS PERCENT AUTO 56 % (41-73); Platelet Count 424 K/mm3 (150-400); RDW Standard Deviation 45.9 fL (35.1-46.3); Red Blood Cell Count 4.14 M/mm3 (3.80-5.20); White Blood Cell Count 6.94 K/mm3 (4.00-11.30)
[2019-03-10 19:08] LABS: Mean Corpuscular Volume 89 fL (80-100)
[2019-03-10 19:27] LABS: Alanine Aminotransfer (ALT/SGP 45 U/L (12-78); Albumin, Blood 3.4 g/dL (3.4-5.0); Albumin/Globulin Ratio 0.8 (0.8-1.8); Alk Phos 88 U/L (50-136); Amylase, Blood 94 U/L (25-115); Anion Gap 8 mmol/L (6-16); Aspartate Aminotrans (AST/SGOT 77 U/L (12-37); Bilirubin, Total 0.3 mg/dL (0.1-1.0); Blood Urea Nitrogen 2 mg/dL (8-24); Bun/Creatinine Ratio 4.5 (12.0-20.0); CO2, Blood 25 mmol/L (21-32); Calcium, Blood 9.1 mg/dL (8.5-10.1); Chloride, Blood 97 mmol/L (98-108); Creatinine, Blood 0.44 mg/dL (0.40-1.00); Globulin, Blood 4.1 g/dL (2.2-4.0); Glomerular Filtration Rate >60 (60-); Glucose, Blood 112 mg/dL (70-99); Potassium, Blood 3.2 mmol/L (3.5-5.5); Sodium, Blood 130 mmol/L (136-145); Total Protein, Blood 7.5 g/dL (6.4-8.2)
== END | disposition home or self-care (01) ==
LOC: LAB SHORT 14:35 → LAB 14:35
PROVIDERS: Nurse Practitioner Family
DX: Z11.59 Encounter for screening for other viral diseases (principal); K85.90 Acute pancreatitis without necrosis or infection, unspecified
CPT/HCPCS: 80053; 82150; 83690; 85025; 86803

== ENCOUNTER 2019-03-16 14:43 | Emergency (ER) | payer OTHER ==
[~2019-03-16] VITALS: Ht 157.5 cm; Wt 48.5 kg
[~2019-03-16 14:43] MED LIST changes: -ONDA4ODT SL; -POTA10T PO
[2019-03-16 15:19] LABS: BASOPHILS ABSOLUTE AUTO 0.04 K/mm3 (0.00-0.23); BASOPHILS PERCENT AUTO 0 % (0-2); EOSINOPHILS ABSOLUTE AUTO 0.05 K/mm3 (0.00-0.68); EOSINOPHILS PERCENT AUTO 1 % (0-6); Hematocrit 41.2 % (33.0-51.0); Hemoglobin 14.2 g/dL (11.5-16.0); IMMATURE GRAN ABSOLUTE AUTO 0.09 K/mm3 (0.00-0.10); IMMATURE GRAN PERCENT AUTO 1 % (0-1); LYMPHOCYTES ABSOLUTE AUTO 2.49 K/mm3 (0.84-5.20); LYMPHOCYTES PERCENT AUTO 24 % (21-46); MONOCYTES ABSOLUTE AUTO 1.29 K/mm3 (0.16-1.47); MONOCYTES PERCENT AUTO 13 % (4-13); Mean Corpuscular HGB 30.3 pg (26.0-34.0); Mean Corpuscular HGB Conc 34.5 g/dL (31.5-36.5); Mean Corpuscular Volume 88 fL (80-100); Mean Platelet Volume 9.2 fL (9.1-12.4); NEUTROPHILS ABSOLUTE AUTO 6.32 K/mm3 (1.96-9.15); NEUTROPHILS PERCENT AUTO 62 % (41-73); Platelet Count 340 K/mm3 (150-400); RDW Coefficient Variation 13.6 % (11.7-14.2); RDW Standard Deviation 43.8 fL (35.1-46.3); Red Blood Cell Count 4.68 M/mm3 (3.80-5.20); White Blood Cell Count 10.28 K/mm3 (4.00-11.30)
[2019-03-16 15:33] LABS: International Normalized Ratio 0.99; Prothrombin Time Results 10.5 Sec (9.7-11.5)
[2019-03-16 15:40] LABS: Alanine Aminotransfer (ALT/SGP 38 U/L (12-78); Albumin, Blood 3.8 g/dL (3.4-5.0); Albumin/Globulin Ratio 0.9 (0.8-1.8); Alk Phos 96 U/L (50-136); Anion Gap 9 mmol/L (6-16); Aspartate Aminotrans (AST/SGOT 73 U/L (12-37); Bilirubin, Total 0.5 mg/dL (0.1-1.0); Blood Urea Nitrogen 4 mg/dL (8-24); Bun/Creatinine Ratio 7.8 (12.0-20.0); CO2, Blood 25 mmol/L (21-32); Calcium, Blood 9.5 mg/dL (8.5-10.1); Chloride, Blood 95 mmol/L (98-108); Creatinine, Blood 0.51 mg/dL (0.40-1.00); Globulin, Blood 4.2 g/dL (2.2-4.0); Glomerular Filtration Rate >60 (60-); Glucose, Blood 110 mg/dL (70-99); Sodium, Blood 129 mmol/L (136-145)
== END 2019-03-16 19:29 | disposition home or self-care (01) ==
LOC: ER 14:43
PROVIDERS: Physician Assistant
DX: K86.1 Other chronic pancreatitis (principal); J44.9 Chronic obstructive pulmonary disease, unspecified; F17.210 Nicotine dependence, cigarettes, uncomplicated; Z79.899 Other long term (current) drug therapy; Z79.01 Long term (current) use of anticoagulants
CPT/HCPCS: 36415; 80053; 83690; 85025; 85610; 96374; 99284-25; G0480; J3010

== ENCOUNTER 2019-04-20 14:39 | Observation (INO) | payer OTHER ==
[~2019-04-20] VITALS: Ht 157.5 cm; Wt 49.0 kg
[2019-04-20 17:20] LABS: BASOPHILS ABSOLUTE AUTO 0.03 K/mm3 (0.00-0.23); BASOPHILS PERCENT AUTO 0 % (0-2); EOSINOPHILS ABSOLUTE AUTO 0.04 K/mm3 (0.00-0.68); EOSINOPHILS PERCENT AUTO 1 % (0-6); Hematocrit 41.3 % (33.0-51.0); Hemoglobin 13.5 g/dL (11.5-16.0); IMMATURE GRAN ABSOLUTE AUTO 0.06 K/mm3 (0.00-0.10); IMMATURE GRAN PERCENT AUTO 1 % (0-1); LYMPHOCYTES ABSOLUTE AUTO 1.84 K/mm3 (0.84-5.20); LYMPHOCYTES PERCENT AUTO 21 % (21-46); MONOCYTES ABSOLUTE AUTO 0.87 K/mm3 (0.16-1.47); MONOCYTES PERCENT AUTO 10 % (4-13); Mean Corpuscular HGB Conc 32.7 g/dL (31.5-36.5); Mean Corpuscular Volume 92 fL (80-100); Mean Platelet Volume 9.8 fL (9.1-12.4); NEUTROPHILS ABSOLUTE AUTO 5.87 K/mm3 (1.96-9.15); NEUTROPHILS PERCENT AUTO 67 % (41-73); Platelet Count 292 K/mm3 (150-400); RDW Coefficient Variation 15.1 % (11.7-14.2); RDW Standard Deviation 51.2 fL (35.1-46.3); White Blood Cell Count 8.71 K/mm3 (4.00-11.30)
[2019-04-20 18:25] LABS: Alanine Aminotransfer (ALT/SGP 23 U/L (12-78); Albumin, Blood 3.7 g/dL (3.4-5.0); Albumin/Globulin Ratio 0.8 (0.8-1.8); Alk Phos 84 U/L (50-136); Anion Gap 10 mmol/L (6-16); Aspartate Aminotrans (AST/SGOT 34 U/L (12-37); Bilirubin, Total 0.4 mg/dL (0.1-1.0); Blood Urea Nitrogen 12 mg/dL (8-24); Bun/Creatinine Ratio 22.5 (12.0-20.0); CO2, Blood 22 mmol/L (21-32); Calcium, Blood 9.1 mg/dL (8.5-10.1); Chloride, Blood 104 mmol/L (98-108); Creatinine, Blood 0.53 mg/dL (0.40-1.00); Globulin, Blood 4.4 g/dL (2.2-4.0); Glomerular Filtration Rate >60 (60-); Glucose, Blood 80 mg/dL (70-99); Potassium, Blood 3.4 mmol/L (3.5-5.5); Sodium, Blood 136 mmol/L (136-145); Total Protein, Blood 8.1 g/dL (6.4-8.2)
[2019-04-20 20:49] LABS: Ethanol (Alcohol), Blood, Med <3 mg/dL
[2019-04-20 22:23] LABS: Source, Urine Clean Catch
[2019-04-20 22:26] LABS: Bilirubin, Urine Neg (Neg); Blood, Urine Neg (Neg); Glucose Qualitative, Urine Neg (Neg); Ketones, Urine 1+ (Neg); Leukocyte Esterase, Urine 1+ (Neg); Nitrite, Urine Neg (Neg); Protein, Urine Neg (Neg); Urobilinogen, Urine NORM (Normal); pH, Urine 6.5 (5.0-8.0)
[2019-04-20 22:29] LABS: International Normalized Ratio 0.97; Prothrombin Time Results 10.3 Sec (9.7-11.5)
[2019-04-20 22:33] LABS: Appearance, Urine Clear (Clear); Color, Urine Yellow (P-Yellow); Red Blood Cells, Urine 0-2 /hpf (0-2); Squamous Epithelial Cells Few /hpf (Few)
[2019-04-20 22:34] LABS: Bacteria Few /hpf
[2019-04-20 22:39] LABS: U Amphetamine Screen Not Detected; U Barbituate Screen Not Detected; U Benzodiazapine Screen Not Detected; U Buprenorphine Screen Not Detected; U Cannabinoids Screen DETECTED; U Cocaine Screen Not Detected; U Methadone Screen Not Detected; U Methamphetamine Screen Not Detected; U Opiates Screen Not Detected; U Oxycodone Screen Not Detected; U Phencyclidine Screen Not Detected; U Propoxyphene Screen Not Detected
[2019-04-21] MEDS ORDERED: OMEP20ER PO (10:06)
[2019-04-21] MEDS ORDERED: HYDR1TAB94 PO (10:06)
[2019-04-21] MEDS ORDERED: ONDA4ODT SL (10:07)
[2019-04-21] MEDS ORDERED: POTA10T PO (10:07)
[2019-04-21] MEDS ORDERED: MIRALAX17 GM PO (10:07)
== END 2019-04-21 10:35 | disposition home or self-care (01) ==
LOC: ER 14:39 → ERHOLD 14:40
PROVIDERS: Emergency Medicine; Physician Assistant; ADMIT Hospitalist
DX: K85.90 Acute pancreatitis without necrosis or infection, unspecified (principal); K86.1 Other chronic pancreatitis; I81 Portal vein thrombosis; K86.2 Cyst of pancreas; F10.129 Alcohol abuse with intoxication, unspecified; J44.9 Chronic obstructive pulmonary disease, unspecified; F17.200 Nicotine dependence, unspecified, uncomplicated; Z79.899 Other long term (current) drug therapy
CPT/HCPCS: 36415; 74177; 80053; 81001; 83690; 85025; 85610; 85730; 87086; 93005; 93010; 96361; 96374-59; 96375; 99285-25; A9270-GY; G0378; G0480; J1885; J2405; J7030; J7120; Q9967

== ENCOUNTER 2019-05-05 13:02 | Inpatient (IN) | payer OTHER ==
[~2019-05-05] VITALS: Ht 157.5 cm; Wt 41.8 kg
[~2019-05-05 13:02] MED LIST changes: +ONDA4ODT SL
[2019-05-05 13:58] LABS: BASOPHILS ABSOLUTE AUTO 0.02 K/mm3 (0.00-0.23); BASOPHILS PERCENT AUTO 0 % (0-2); EOSINOPHILS ABSOLUTE AUTO 0.01 K/mm3 (0.00-0.68); EOSINOPHILS PERCENT AUTO 0 % (0-6); Hematocrit 41.1 % (33.0-51.0); Hemoglobin 13.1 g/dL (11.5-16.0); IMMATURE GRAN ABSOLUTE AUTO 0.07 K/mm3 (0.00-0.10); IMMATURE GRAN PERCENT AUTO 1 % (0-1); LYMPHOCYTES ABSOLUTE AUTO 0.87 K/mm3 (0.84-5.20); LYMPHOCYTES PERCENT AUTO 8 % (21-46); MONOCYTES ABSOLUTE AUTO 0.41 K/mm3 (0.16-1.47); MONOCYTES PERCENT AUTO 4 % (4-13); Mean Corpuscular HGB Conc 31.9 g/dL (31.5-36.5); Mean Corpuscular Volume 94 fL (80-100); Mean Platelet Volume 9.1 fL (9.1-12.4); NEUTROPHILS ABSOLUTE AUTO 9.04 K/mm3 (1.96-9.15); NEUTROPHILS PERCENT AUTO 87 % (41-73); Platelet Count 297 K/mm3 (150-400); RDW Coefficient Variation 14.8 % (11.7-14.2); RDW Standard Deviation 51.6 fL (35.1-46.3); Red Blood Cell Count 4.36 M/mm3 (3.80-5.20); White Blood Cell Count 10.42 K/mm3 (4.00-11.30)
[2019-05-05 14:36] LABS: Alanine Aminotransfer (ALT/SGP 29 U/L (12-78); Albumin, Blood 3.8 g/dL (3.4-5.0); Albumin/Globulin Ratio 0.9 (0.8-1.8); Alk Phos 92 U/L (50-136); Anion Gap 19 mmol/L (6-16); Aspartate Aminotrans (AST/SGOT 91 U/L (12-37); Bilirubin, Total 0.6 mg/dL (0.1-1.0); Blood Urea Nitrogen 10 mg/dL (8-24); Bun/Creatinine Ratio 18.3 (12.0-20.0); CO2, Blood 16 mmol/L (21-32); Chloride, Blood 97 mmol/L (98-108); Creatinine, Blood 0.55 mg/dL (0.40-1.00); Globulin, Blood 4.1 g/dL (2.2-4.0); Glomerular Filtration Rate >60 (60-); Glucose, Blood 107 mg/dL (70-99); Potassium, Blood 3.8 mmol/L (3.5-5.5); Sodium, Blood 132 mmol/L (136-145); Total Protein, Blood 7.9 g/dL (6.4-8.2)
[2019-05-05] MEDS ORDERED: Percocet 5-3251 EACH PO (16:17)
[2019-05-05] MEDS ORDERED: PROM25 PR (16:17)
--- NOTE | 2019-05-05 19:29 | NUR ---
Transfer report from Melvi COTTRELL in ER on PT being admitted with pancreatitis ETOH abuse. Will be OBS status Tele monitoring. Abd pain tx in ER. Await admission
[2019-05-05 19:31] LABS: BASOPHILS ABSOLUTE AUTO 0.02 K/mm3 (0.00-0.23); BASOPHILS PERCENT AUTO 0 % (0-2); EOSINOPHILS PERCENT AUTO 0 % (0-6); IMMATURE GRAN ABSOLUTE AUTO 0.08 K/mm3 (0.00-0.10); IMMATURE GRAN PERCENT AUTO 1 % (0-1); LYMPHOCYTES ABSOLUTE AUTO 0.97 K/mm3 (0.84-5.20); LYMPHOCYTES PERCENT AUTO 10 % (21-46); MONOCYTES ABSOLUTE AUTO 0.89 K/mm3 (0.16-1.47); MONOCYTES PERCENT AUTO 9 % (4-13); Mean Corpuscular HGB 30.3 pg (26.0-34.0); Mean Corpuscular HGB Conc 33.3 g/dL (31.5-36.5); Mean Corpuscular Volume 91 fL (80-100); Mean Platelet Volume 9.3 fL (9.1-12.4); NEUTROPHILS ABSOLUTE AUTO 7.65 K/mm3 (1.96-9.15); NEUTROPHILS PERCENT AUTO 80 % (41-73); Platelet Count 316 K/mm3 (150-400); RDW Coefficient Variation 14.5 % (11.7-14.2); RDW Standard Deviation 48.4 fL (35.1-46.3); Red Blood Cell Count 4.62 M/mm3 (3.80-5.20); White Blood Cell Count 9.61 K/mm3 (4.00-11.30)
--- NOTE | 2019-05-05 21:08 | NUR ---
ATTEMPT AT MED REC REVIEW. PT STATES SHE HAS NO NORCO TABS, STATES SHE TAKES A LARGE K+ IN THE MORNING AND A SMALL WHITE PILL WITH EACH MEAL, STATES THEY ARE ALSO K+, ALSO SAYS SHE IS TAKING 2 ANTIBIOTICS BUT DOESNT KNOW NAMES. PT DENIES TAKING MOST OF MEDS ON DISCHARGE SUMMARY LIST FROM 2 WEEKS AGO. PT IS A POOR HISTORIAN.
[2019-05-06 05:21] LABS: Anion Gap 12 mmol/L (6-16); Blood Urea Nitrogen 9 mg/dL (8-24); Bun/Creatinine Ratio 17.6 (12.0-20.0); CO2, Blood 23 mmol/L (21-32); Calcium, Blood 9.1 mg/dL (8.5-10.1); Chloride, Blood 93 mmol/L (98-108); Creatinine, Blood 0.51 mg/dL (0.40-1.00); Glomerular Filtration Rate >60 (60-); Glucose, Blood 88 mg/dL (70-99); Magnesium, Blood 1.8 mg/dL (1.6-2.4); Phosphorus, Blood 2.6 mg/dL (2.5-4.9); Potassium, Blood 3.9 mmol/L (3.5-5.5); Sodium, Blood 128 mmol/L (136-145)
--- NOTE | 2019-05-06 06:39 | NUR ---
pt continue to have nausea and voniting with zofran 4 to 8 mg iv given with helpful effect. PT incontinent of urine x 1 wears pullups baseline. on clear liquid diet with only water taken. PT has SW referral for ETOH vcessation resources. Smoker smokes 1/3 pack per day. PT has been hospitalized recently with pancreatitis and resumed ETOH use on dc. PT is poor historian. Unable to verify med list. Medicated several times with dilaudid 0.5 mg and tylenol 650 mg x 2. Librium 30 mg po x 1 helpful to promote rest. alcohol withdrawl assess Q 4 hours with scores less than 10.
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
--- NOTE | 2019-05-06 17:30 | NUR ---
SHIFT SUMMARY PT UP TO BATHROOM WITH 1 PERSON ASSIST. WEAK BUT STEADY ON HER FEET. REPORTED PAIN AND NAUSEA ON AND OFF. HAS ONLY HAD SIPS OF FLUIDS TODAY. STATES SHE JUST DOESN'T FEEL VERY GOOD TODAY.
[2019-05-06 18:15] LABS: BASOPHILS ABSOLUTE AUTO 0.02 K/mm3 (0.00-0.23); BASOPHILS PERCENT AUTO 0 % (0-2); EOSINOPHILS ABSOLUTE AUTO 0.03 K/mm3 (0.00-0.68); EOSINOPHILS PERCENT AUTO 0 % (0-6); Hematocrit 41.2 % (33.0-51.0); Hemoglobin 13.5 g/dL (11.5-16.0); IMMATURE GRAN ABSOLUTE AUTO 0.04 K/mm3 (0.00-0.10); IMMATURE GRAN PERCENT AUTO 1 % (0-1); LYMPHOCYTES ABSOLUTE AUTO 0.75 K/mm3 (0.84-5.20); LYMPHOCYTES PERCENT AUTO 9 % (21-46); MONOCYTES ABSOLUTE AUTO 0.66 K/mm3 (0.16-1.47); MONOCYTES PERCENT AUTO 8 % (4-13); Mean Corpuscular HGB 29.4 pg (26.0-34.0); Mean Corpuscular HGB Conc 32.8 g/dL (31.5-36.5); Mean Corpuscular Volume 90 fL (80-100); Mean Platelet Volume 9.2 fL (9.1-12.4); NEUTROPHILS ABSOLUTE AUTO 7.18 K/mm3 (1.96-9.15); NEUTROPHILS PERCENT AUTO 83 % (41-73); Platelet Count 259 K/mm3 (150-400); RDW Coefficient Variation 14.6 % (11.7-14.2); RDW Standard Deviation 47.7 fL (35.1-46.3); Red Blood Cell Count 4.59 M/mm3 (3.80-5.20); White Blood Cell Count 8.68 K/mm3 (4.00-11.30)
--- NOTE | 2019-05-07 00:12 | NUR ---
DR MAGANA called and updated on PT's continued vomiting on clear liquids despite up to 8 mg iv zofran q 4 hrs PRN. Finished 1000 ml banana bag for ETOH abuse. NS 1000 ml rx x 1 and compazine added for nausea & vomiting making PT NPO due to NV abd pain with pancreatitis. Alcohol WD essentially negative.
--- NOTE | 2019-05-07 02:42 | NUR ---
pt receiving IV fluids NS at 100 ml hr due to nausea Vomiting and now NPO status with new antiemetic compazine available in addition to zofran. Pt is incontinent and voids on bedpan. Does not call for assist with toileting. Medicated for acute upper abd pain with tylenol and dilaudid 0.5 mg with helpful effect. Room air, smoker using nicotine patch. PT very thin and weak.
[2019-05-07 05:35] LABS: Anion Gap 9 mmol/L (6-16); Blood Urea Nitrogen 5 mg/dL (8-24); Bun/Creatinine Ratio 11.2 (12.0-20.0); CO2, Blood 28 mmol/L (21-32); Calcium, Blood 8.6 mg/dL (8.5-10.1); Chloride, Blood 93 mmol/L (98-108); Creatinine, Blood 0.45 mg/dL (0.40-1.00); Glomerular Filtration Rate >60 (60-); Glucose, Blood 97 mg/dL (70-99); Magnesium, Blood 1.7 mg/dL (1.6-2.4); Phosphorus, Blood 2.1 mg/dL (2.5-4.9); Potassium, Blood 2.7 mmol/L (3.5-5.5); Sodium, Blood 130 mmol/L (136-145)
--- NOTE | 2019-05-07 14:12 | NUR ---
PT REPORTS NO NAUSEA TODAY BUT CONTINUES TO HAVE PAIN BUT IMPROVED OVER YESTERDAY. TOLERATED ICE CHIPS THIS MORNING AND THEN A CUP OF JELLO THIS AFTERNOON WITH NO INCREASE IN PAIN OR NAUSEA. REPORT GIVEN TO ODILIA COTTRELL.
--- NOTE | 2019-05-07 17:42 | NUR ---
PATIENT IS ALERT AND ORIENTED AND COOPERATIVE WITH CARE. SHE CALLS APPROPRIATELY. PATIENT TOLERATED ICE CHIPS, WATER, AND JELLO TODAY. NO COMPLAINTS OF NAUSEA OR VOMITING. NO COMPLAINTS OF PAIN. SHE HAS BEEN SLEEPING THROUGHOUT THE AFTERNOON.
--- NOTE | 2019-05-08 04:47 | NUR ---
pt recieved banana bag 1000 ml iv per etoh withdrawl protocol. Slight improvement in upper abd pain continues to co acute pain, less nausea no vomiting while npo.
[2019-05-08 05:03] LABS: Hematocrit 36.4 % (33.0-51.0); Hemoglobin 12.2 g/dL (11.5-16.0); Mean Corpuscular HGB 30.1 pg (26.0-34.0); Mean Corpuscular HGB Conc 33.5 g/dL (31.5-36.5); Mean Corpuscular Volume 90 fL (80-100); Mean Platelet Volume 9.4 fL (9.1-12.4); Platelet Count 262 K/mm3 (150-400); RDW Coefficient Variation 14.4 % (11.7-14.2); RDW Standard Deviation 47.7 fL (35.1-46.3); Red Blood Cell Count 4.05 M/mm3 (3.80-5.20); White Blood Cell Count 8.02 K/mm3 (4.00-11.30)
[2019-05-08 05:23] LABS: Alanine Aminotransfer (ALT/SGP 38 U/L (12-78); Albumin, Blood 3.2 g/dL (3.4-5.0); Albumin/Globulin Ratio 0.9 (0.8-1.8); Alk Phos 75 U/L (50-136); Anion Gap 8 mmol/L (6-16); Aspartate Aminotrans (AST/SGOT 81 U/L (12-37); Bilirubin, Total 0.6 mg/dL (0.1-1.0); Blood Urea Nitrogen 3 mg/dL (8-24); Bun/Creatinine Ratio 6.8 (12.0-20.0); CO2, Blood 28 mmol/L (21-32); Calcium, Blood 8.7 mg/dL (8.5-10.1); Chloride, Blood 95 mmol/L (98-108); Creatinine, Blood 0.44 mg/dL (0.40-1.00); Globulin, Blood 3.6 g/dL (2.2-4.0); Glomerular Filtration Rate >60 (60-); Glucose, Blood 92 mg/dL (70-99); Phosphorus, Blood 1.7 mg/dL (2.5-4.9); Potassium, Blood 2.7 mmol/L (3.5-5.5); Sodium, Blood 131 mmol/L (136-145); Total Protein, Blood 6.8 g/dL (6.4-8.2)
--- NOTE | 2019-05-08 17:44 | NUR ---
PATIENT IS ALERT AND ORIENTED AND COOPERATIVE WITH CARE. NO NAUSEA OR VOMITING TODAY. SHE HAS REFUSED TO EAT TODAY. SHE HAS HAD 1 ENSURE. FAMILY WAS AT THE BEDSIDE TODAY. SHE CALLS APPROPRIATELY FOR PAIN MEDICATION AND TO HAVE HER ATTENDS CHANGED. WILL CONTINUE TO MONITOR.
[2019-05-09 04:33] LABS: Hematocrit 34.9 % (33.0-51.0); Hemoglobin 11.7 g/dL (11.5-16.0); Mean Corpuscular HGB 29.7 pg (26.0-34.0); Mean Corpuscular HGB Conc 33.5 g/dL (31.5-36.5); Mean Corpuscular Volume 89 fL (80-100); Mean Platelet Volume 9.4 fL (9.1-12.4); Platelet Count 251 K/mm3 (150-400); RDW Coefficient Variation 14.4 % (11.7-14.2); RDW Standard Deviation 46.1 fL (35.1-46.3); Red Blood Cell Count 3.94 M/mm3 (3.80-5.20); White Blood Cell Count 6.35 K/mm3 (4.00-11.30)
[2019-05-09 04:51] LABS: Alanine Aminotransfer (ALT/SGP 40 U/L (12-78); Albumin, Blood 3.1 g/dL (3.4-5.0); Albumin/Globulin Ratio 0.9 (0.8-1.8); Alk Phos 71 U/L (50-136); Anion Gap 8 mmol/L (6-16); Aspartate Aminotrans (AST/SGOT 59 U/L (12-37); Bilirubin, Direct 0.1 mg/dL (0.0-0.3); Bilirubin, Indirect 0.3 mg/dL (0.1-0.7); Bilirubin, Total 0.4 mg/dL (0.1-1.0); Blood Urea Nitrogen 6 mg/dL (8-24); CO2, Blood 28 mmol/L (21-32); Calcium, Blood 8.5 mg/dL (8.5-10.1); Chloride, Blood 93 mmol/L (98-108); Creatinine, Blood 0.46 mg/dL (0.40-1.00); Globulin, Blood 3.4 g/dL (2.2-4.0); Glomerular Filtration Rate >60 (60-); Glucose, Blood 110 mg/dL (70-99); Potassium, Blood 3.8 mmol/L (3.5-5.5); Sodium, Blood 129 mmol/L (136-145); Total Protein, Blood 6.5 g/dL (6.4-8.2)
[2019-05-09 05:33] LABS: Phosphorus, Blood 6.2 mg/dL (2.5-4.9)
--- NOTE | 2019-05-09 05:50 | NUR ---
SHIFT SUMMARY: 59 Y/O FEMALE, ADMITTED FOR ETOH ABUSE, AND PANCRETITIS. SHE HAS BEEN COOPERATIVE AND PLEASANT. SHE RECEIVED 2 K+ CHLORIDE INFUSIONS AND A k+ PHOSPHUS INFUSION TONIGHT. THEN SHE WAS SL. THIS TOOK MOST OF THE NIGHT SHE HAD ISSUES WITH THE K RIDER BURNING SO IT INFUSED SLOWER. MEDS WERE GIVEN LATE EAT ONE DID NOT FINISH ON TIME DUE TO HER NEEDING TO TAKE BREAKS ON DAY SHIFT. RAN EACH CONCURRENT WITH NS WHICH HELPED. PAIN MEDS WERE GIVEN X2, SHE GOT THE MOST EFFECT FROM THE MEDS WHEN THE TORDOL WAS GIVEN AN HOUR AFTERWARDS. SHE WAS ABLE TO SLEEP AFTERWARDS FOR SHORT PERIOD OF TIME. NO NAUSEA AND VOMITING WAS NOTED THIS SHIFT ALONG WITH NO OTHER CHANGES TO REPORT. WILL REPORT TO DAY SHIFT RN.
--- NOTE | 2019-05-09 17:28 | NUR ---
SHIFT SUMMARY: PT HAS BEEN A/O X 4 WITH SPORATIC C/O AB PAIN. SHE REPORTS THAT PAIN MEDS ARE EFFECTIVE BUT WHEN SHE EATS/DRINKS ANYTHING IT AGGRIVATES HER STOMACH PAIN. MRI SCREENING WAS COMPLETED AFTER DR TURCIOS ORDERED THE MRI AND IMAGING CALLED TO SAY THAT THEY SHOULD BE ABLE TO FIT HER IN AROUND 1700. PT HAS BEEN AT THE BEDSIDE MOST OF THE DAY AND THEY CONTINUE TO GO OUTSIDE TO SMOKE. PT IS ABLE TO MAKE HER NEEDS KNOWN AND IS RESTING IN BED WITH CALL LIGHT IN REACH.
--- NOTE | 2019-05-10 06:32 | NUR ---
SHIFT SUMMARY PT A/O INDEPENDENT. WENT OUT TO SMOKE A COUPLE TIMES IN FIRST HALF OF SHIFT. C/O PAIN IN ABD AND MEDICATED C TORADOL AND OXYCODONE BUT SHE SAID IT WASN'T HELPING SO GOT ORDER FOR FENTANYL AND SHE WAS ABLE TO SLEEP OFF AND ON AFTER ADMINISTRATION. ADVANCED HER DIET DION PER ORDERS AND SHE TRIED SHERBERT WITH NO C/O NAUSEA OR INCREASED PAIN. CIWA SCORES HAVE BEEN ZERO. SLEPT ON AND OFF T/O NIGHT. CALL LIGHT IN REACH.
[2019-05-10 08:49] LABS: Albumin, Blood 3.4 g/dL (3.4-5.0); Anion Gap 9 mmol/L (6-16); Blood Urea Nitrogen 11 mg/dL (8-24); Bun/Creatinine Ratio 18.6 (12.0-20.0); CO2, Blood 25 mmol/L (21-32); Chloride, Blood 96 mmol/L (98-108); Creatinine, Blood 0.59 mg/dL (0.40-1.00); Glomerular Filtration Rate >60 (60-); Glucose, Blood 94 mg/dL (70-99); Phosphorus, Blood 3.5 mg/dL (2.5-4.9); Potassium, Blood 3.2 mmol/L (3.5-5.5); Sodium, Blood 130 mmol/L (136-145)
--- NOTE | 2019-05-10 09:42 | NUR ---
PT DIET ADVANCED TO FULL LIQUIDS THIS MORNING FOR BREAKFAST. PT IS NOW REPORTING INCREASED ABD PAIN. DIET CHANGED BACK TO CLEAR LIQUIDS AT THIS TIME.
--- NOTE | 2019-05-10 19:16 | NUR ---
PT TO IMAGING FOR MRI THIS AFTERNOON. PT CONTINUES TO ASK FOR PAIN MEDICATIONS FREQUENTLY. ATTEMPTED TO ADVANCE DIET FROM CLEARS TO FULL LIQUID, PT DID NOT TOLERATE. DIET IS CLEAR LIQUIDS AT THIS TIME. NEW IV PLACED TO LFA AFTER PT REPORTS BURNING WITH KCL RIDER. KCL IS DILUTED WITH NS AND RUNNING AT A REDUCED RATE. ICE PACK PLACED TO IV SITE TO HELP WITH DISCOMFORT. DR FLORES AT BEDSIDE TALKING TO PT REGARDING KCL RIDER. WILL REPORT TO ONCOMING RONIT
[2019-05-11 05:08] LABS: Albumin, Blood 2.8 g/dL (3.4-5.0); Anion Gap 6 mmol/L (6-16); Blood Urea Nitrogen 17 mg/dL (8-24); Bun/Creatinine Ratio 30.1 (12.0-20.0); CO2, Blood 27 mmol/L (21-32); Calcium, Blood 8.2 mg/dL (8.5-10.1); Chloride, Blood 102 mmol/L (98-108); Creatinine, Blood 0.56 mg/dL (0.40-1.00); Glomerular Filtration Rate >60 (60-); Glucose, Blood 111 mg/dL (70-99); Magnesium, Blood 1.3 mg/dL (1.6-2.4); Phosphorus, Blood 3.7 mg/dL (2.5-4.9); Sodium, Blood 135 mmol/L (136-145)
--- NOTE | 2019-05-11 06:15 | NUR ---
SHIFT SUMMARY PT A/O C/O PAIN IN ABD AND MEDICATED PER EMAR. SHE WAS ABLE TO EAT TOMATO SOUP AND ICE CREAM WITHOUT A PROBLEM. SHE WAS ABLE TO SLEEP THROUGH NIGHT AFTER PAIN MED ADMINISTRATION. WENT OUT TO SMOKE ONCE AROUND 1914 OR SO. CALL LIGHT IN REACH.
[2019-05-11 15:37] LABS: Carcinoembryonic Antigen 1.6 ng/mL (0.0-3.0)
[2019-05-11 15:42] LABS: Cancer Antigen 19-9 26.2 U/mL (2.0-37.0)
--- NOTE | 2019-05-11 16:56 | NUR ---
SHIFT SUMMARY: PT IS A/O X 4 AND CONTINUES TO C/O OF ONGOING PAIN TO ABDOMEN BUT ALSO CONTINUES TO GO OUTSIDE AND SMOKE EVEN AFTER THE DOCTORS RECOMENDATION FOR SMOKING CESSATION. PT EDUCATION WAS DONE ABOUT THE RISKS OF CONTINUED SMOKING WITH HER CURRENT DX AND SHE IS NOT WANTING TO QUIT AT THIS TIME. PAIN MEDS HAVE BEEN GIVEN ORDERED THROUGHOUT THE SHIFT. PT DAUGHTER HAS BEEN IN VISITING THIS AFTERNOON AND THEY SPENT A WHILE OUTSIDE. PT CONTINUES TO HAVE A POOR APPETITE BUT IS ENCOURAGED TO EAT AND DRINK. SHE IS ABLE TO MAKE HER NEEDS KNOWN AND USES CALL LIGHT WHEN NEEDED.
--- NOTE | 2019-05-11 19:50 | NUR ---
1918: PT SLEEPING AND IN NO APPAARENT DISTRESS. BED LOW AND LOCKED. CALL HELLER WITHIN REACH
[2019-05-12 05:09] LABS: Albumin, Blood 2.9 g/dL (3.4-5.0); Anion Gap 7 mmol/L (6-16); Blood Urea Nitrogen 11 mg/dL (8-24); Bun/Creatinine Ratio 17.9 (12.0-20.0); CO2, Blood 27 mmol/L (21-32); Calcium, Blood 8.7 mg/dL (8.5-10.1); Chloride, Blood 100 mmol/L (98-108); Creatinine, Blood 0.62 mg/dL (0.40-1.00); Glomerular Filtration Rate >60 (60-); Glucose, Blood 101 mg/dL (70-99); Phosphorus, Blood 3.4 mg/dL (2.5-4.9); Potassium, Blood 3.5 mmol/L (3.5-5.5); Sodium, Blood 134 mmol/L (136-145)
--- NOTE | 2019-05-12 17:13 | NUR ---
SHIFT SUMMARY: PT IS A/O X 4 TODAY WITH ONGOING C/O PAIN TO ABDOMEN. PAIN MEDS HAVE BEEN GIVEN ORDERED. PT CONTINUES TO GO OUTSIDE AND SMOKE FREQUENTLY THROUGHOUT THE DAY. PT DAUGHTER CAME TO VISIT TODAY. PLAN IS FOR PT TO DC HOME TOMORROW. PT IS RESTING IN BED WITH HER CALL LIGHT IN REACH AND IS ABLE TO MAKE HER NEEDS KNOWN.
[2019-05-13 04:21] LABS: Albumin, Blood 3.7 g/dL (3.4-5.0); Anion Gap 7 mmol/L (6-16); Blood Urea Nitrogen 14 mg/dL (8-24); Bun/Creatinine Ratio 24.3 (12.0-20.0); CO2, Blood 29 mmol/L (21-32); Calcium, Blood 9.4 mg/dL (8.5-10.1); Chloride, Blood 98 mmol/L (98-108); Creatinine, Blood 0.58 mg/dL (0.40-1.00); Glomerular Filtration Rate >60 (60-); Glucose, Blood 119 mg/dL (70-99); Phosphorus, Blood 3.1 mg/dL (2.5-4.9); Potassium, Blood 3.6 mmol/L (3.5-5.5); Sodium, Blood 134 mmol/L (136-145)
--- NOTE | 2019-05-13 06:29 | NUR ---
SHIFT SUMMARY PT IS A 59 Y/O FEMALE ADMITTED FOR ACUTE ON CHRONIC PANCREATITIS R/T ETOH ABUSE. SHE IS A&O X 4, AND INDEPENDENT IN THE ROOM. SHE ALSO WENT OUTSIDE TO SMOKE ONCE DURING THE NIGHT. PT REPORTED PAIN AT A 10/10 THROUGH THE NIGHT, AND FREQUENTLY REQUESTED PAIN MEDS EVEN WHEN REMINDED THAT NONE WERE AVAILABLE TO HER YET. PT DID NOT APPEAR IN ANY DISTRESS, AND SLEPT WELL DURING THE NIGHT. SHE WAS MEDICATED ONCE FOR NAUSEA WITH PRN ZOFRAN. NO COMPLAINTS OF SOB. VITAL SIGNS STABLE. NO OTHER ACUTE CHANGES IN PT CONDITION NOTED. WILL CONTINUE TO MONITOR AND TREAT PER EMAR UNTIL HAND OFF TO DAY SHIFT RN.
--- NOTE | 2019-05-13 09:00 | NUR ---
PT PLEASANT COOP A/O. STATES SOME PAIN IN MED ABD MED PER EMAR. H/R REG, NO MURMER NOTED. NO TELE. LUNGS CLEAR T/O. RESP EASY, UNLABORED. ON R.A. BT X4 LAST BM YEST. VOIDS INDEPENDANT TO BATHROOM. BED IN LOW POSITOIN, CALL LITE IN REACH, CALLS APPOROP. WALKS DOWN TO SMOKE REGULARLY.
[2019-05-13] MEDS ORDERED: OMEPRAZOLE20 MG PO (13:04)
[2019-05-13] MEDS ORDERED: ONDA4ODT PO (13:05)
[2019-05-13] MEDS ORDERED: DRON400T (13:06)
[2019-05-13] MEDS ORDERED: B-1100 MG PO (13:21)
[2019-05-13] MEDS ORDERED: POTA10T PO (13:21)
[2019-05-13] MEDS ORDERED: THERA1 EACH PO (13:23)
--- NOTE | 2019-05-13 13:40 | NUR ---
PT DISCHARGE REVIEWED WITH PT. PT VERBALIZED UNDERSTANDING OF MEDS AND INSTR. IV PULLED INTACT. NO TELE. PT WHEELED TO DOOR BY AIDE AT 1340
== END 2019-05-13 13:42 | disposition home or self-care (01) | DRG 438 ==
LOC: ER 13:02 → MEDS 13:03 → ENPENDDIS 05-13 10:59 → MEDS 05-13 13:42
PROVIDERS: Emergency Medicine; Internal Medicine; ADMIT Internal Medicine
DX: K85.90 Acute pancreatitis without necrosis or infection, unspecified (principal); E43 Unspecified severe protein-calorie malnutrition; E87.1 Hypo-osmolality and hyponatremia; K86.2 Cyst of pancreas; Z68.1 Body mass index [BMI] 19.9 or less, adult; F10.230 Alcohol dependence with withdrawal, uncomplicated; E46 Unspecified protein-calorie malnutrition; K86.1 Other chronic pancreatitis; E87.6 Hypokalemia; J44.9 Chronic obstructive pulmonary disease, unspecified; E83.42 Hypomagnesemia; B19.20 Unspecified viral hepatitis C without hepatic coma; E83.39 Other disorders of phosphorus metabolism; F17.200 Nicotine dependence, unspecified, uncomplicated; Z86.718 Personal history of other venous thrombosis and embolism
CPT/HCPCS: 36415; 36416; 74183; 80048; 80053; 80069; 82248; 82378; 83690; 83735; 84100; 84484; 85025; 85027; 86301; 90686; 93005; 93010; 96374; 96375; 96376; 99285-25; A9270; A9577; C9113; G0480; J0780; J1170; J1885; J2405; J3010; J3411; J3475; J3480; J7030; J7040; J7042; J7060

== ENCOUNTER 2019-05-24 17:15 | Emergency (ER) | payer OTHER ==
[~2019-05-24] VITALS: Ht 157.5 cm; Wt 40.8 kg
[~2019-05-24 17:15] MED LIST changes: +DRON400T; +OMEPRAZOLE20 MG PO; +ONDA4ODT PO; +POTA10T PO; +PROM25 PR; +Percocet 5-3251 EACH PO; +THERA1 EACH PO
[2019-05-24 17:54] LABS: BASOPHILS ABSOLUTE AUTO 0.03 K/mm3 (0.00-0.23); BASOPHILS PERCENT AUTO 1 % (0-2); EOSINOPHILS ABSOLUTE AUTO 0.03 K/mm3 (0.00-0.68); EOSINOPHILS PERCENT AUTO 1 % (0-6); Hematocrit 37.1 % (33.0-51.0); Hemoglobin 12.6 g/dL (11.5-16.0); IMMATURE GRAN ABSOLUTE AUTO 0.03 K/mm3 (0.00-0.10); IMMATURE GRAN PERCENT AUTO 1 % (0-1); LYMPHOCYTES ABSOLUTE AUTO 1.89 K/mm3 (0.84-5.20); LYMPHOCYTES PERCENT AUTO 30 % (21-46); MONOCYTES ABSOLUTE AUTO 0.64 K/mm3 (0.16-1.47); MONOCYTES PERCENT AUTO 10 % (4-13); Mean Corpuscular Volume 88 fL (80-100); Mean Platelet Volume 9.1 fL (9.1-12.4); NEUTROPHILS ABSOLUTE AUTO 3.68 K/mm3 (1.96-9.15); NEUTROPHILS PERCENT AUTO 58 % (41-73); Platelet Count 303 K/mm3 (150-400); RDW Coefficient Variation 13.9 % (11.7-14.2); RDW Standard Deviation 44.7 fL (35.1-46.3)
[2019-05-24 18:03] LABS: Source, Urine Clean Catch
[2019-05-24 18:11] LABS: Alanine Aminotransfer (ALT/SGP 17 U/L (12-78); Albumin, Blood 3.8 g/dL (3.4-5.0); Alk Phos 90 U/L (50-136); Anion Gap 13 mmol/L (6-16); Aspartate Aminotrans (AST/SGOT 20 U/L (12-37); Bilirubin, Total 0.4 mg/dL (0.1-1.0); Blood Urea Nitrogen 7 mg/dL (8-24); Bun/Creatinine Ratio 11.8 (12.0-20.0); CO2, Blood 25 mmol/L (21-32); Calcium, Blood 9.1 mg/dL (8.5-10.1); Chloride, Blood 88 mmol/L (98-108); Creatinine, Blood 0.59 mg/dL (0.40-1.00); Globulin, Blood 3.7 g/dL (2.2-4.0); Glomerular Filtration Rate >60 (60-); Glucose, Blood 87 mg/dL (70-99); Potassium, Blood 2.9 mmol/L (3.5-5.5); Sodium, Blood 126 mmol/L (136-145); Total Protein, Blood 7.5 g/dL (6.4-8.2)
[2019-05-24 18:14] LABS: Appearance, Urine Hazy (Clear); Bilirubin, Urine Neg (Neg); Blood, Urine 1+ (Neg); Color, Urine Yellow (P-Yellow); Glucose Qualitative, Urine Neg (Neg); Ketones, Urine 1+ (Neg); Leukocyte Esterase, Urine 3+ (Neg); Nitrite, Urine Neg (Neg); Protein, Urine 1+ (Neg); Urobilinogen, Urine NORM (Normal)
[2019-05-24 18:34] LABS: White Blood Cells, Urine 25-50 /hpf (0-5)
[2019-05-24 18:35] LABS: Bacteria Many /hpf; Red Blood Cells, Urine Not Seen /hpf (0-2); Squamous Epithelial Cells Many /hpf (Few)
[2019-05-24] MEDS ORDERED: TRAM50 PO (19:08)
[2019-05-24] MEDS ORDERED: MAGCHL64ER PO (21:01)
== END 2019-05-24 21:35 | disposition home or self-care (01) ==
LOC: ER 17:15
PROVIDERS: Physician Assistant
DX: E87.6 Hypokalemia (principal); K86.1 Other chronic pancreatitis; E83.42 Hypomagnesemia; E87.5 Hyperkalemia; E87.1 Hypo-osmolality and hyponatremia; R11.0 Nausea; F17.200 Nicotine dependence, unspecified, uncomplicated; Z79.899 Other long term (current) drug therapy
CPT/HCPCS: 36415; 80053; 81001; 83690; 83735; 85025; 87086; 96374; 96375; 96376; 99284-25; A9270; J2405; J3010; J7030

== ENCOUNTER → 2019-06-02 | Outpatient (CLI) | payer OTHER ==
[~2019-06-02] MED LIST changes: +MAGCHL64ER PO
[2019-06-02 19:26] LABS: BASOPHILS ABSOLUTE AUTO 0.05 K/mm3 (0.00-0.23); BASOPHILS PERCENT AUTO 1 % (0-2); EOSINOPHILS ABSOLUTE AUTO 0.07 K/mm3 (0.00-0.68); EOSINOPHILS PERCENT AUTO 1 % (0-6); Hematocrit 37.1 % (33.0-51.0); Hemoglobin 12.2 g/dL (11.5-16.0); IMMATURE GRAN ABSOLUTE AUTO 0.02 K/mm3 (0.00-0.10); IMMATURE GRAN PERCENT AUTO 0 % (0-1); LYMPHOCYTES ABSOLUTE AUTO 1.59 K/mm3 (0.84-5.20); LYMPHOCYTES PERCENT AUTO 23 % (21-46); MONOCYTES PERCENT AUTO 11 % (4-13); Mean Corpuscular HGB 29.3 pg (26.0-34.0); Mean Corpuscular HGB Conc 32.9 g/dL (31.5-36.5); Mean Corpuscular Volume 89 fL (80-100); Mean Platelet Volume 9.8 fL (9.1-12.4); NEUTROPHILS ABSOLUTE AUTO 4.47 K/mm3 (1.96-9.15); NEUTROPHILS PERCENT AUTO 64 % (41-73); Platelet Count 329 K/mm3 (150-400); RDW Coefficient Variation 15.3 % (11.7-14.2); RDW Standard Deviation 50.1 fL (35.1-46.3); Red Blood Cell Count 4.16 M/mm3 (3.80-5.20)
[2019-06-02 20:09] LABS: Alanine Aminotransfer (ALT/SGP 26 U/L (12-78); Albumin, Blood 3.8 g/dL (3.4-5.0); Alk Phos 100 U/L (50-136); Anion Gap 7 mmol/L (6-16); Aspartate Aminotrans (AST/SGOT 28 U/L (12-37); Bilirubin, Total 0.3 mg/dL (0.1-1.0); Blood Urea Nitrogen 16 mg/dL (8-24); Bun/Creatinine Ratio 26.6 (12.0-20.0); CO2, Blood 27 mmol/L (21-32); Calcium, Blood 9.1 mg/dL (8.5-10.1); Chloride, Blood 100 mmol/L (98-108); Globulin, Blood 3.9 g/dL (2.2-4.0); Glomerular Filtration Rate >60 (60-); Glucose, Blood 119 mg/dL (70-99); Potassium, Blood 3.2 mmol/L (3.5-5.5); Sodium, Blood 134 mmol/L (136-145); Total Protein, Blood 7.7 g/dL (6.4-8.2)
== END | disposition home or self-care (01) ==
LOC: LAB 18:33 → LAB SHORT 18:33
PROVIDERS: Nurse Practitioner Family
DX: K86.1 Other chronic pancreatitis (principal)
CPT/HCPCS: 80053; 83690; 85025

== ENCOUNTER → 2019-06-23 | Outpatient (CLI) | payer OTHER ==
[2019-06-23 19:22] LABS: BASOPHILS ABSOLUTE AUTO 0.03 K/mm3 (0.00-0.23); BASOPHILS PERCENT AUTO 1 % (0-2); EOSINOPHILS ABSOLUTE AUTO 0.06 K/mm3 (0.00-0.68); EOSINOPHILS PERCENT AUTO 1 % (0-6); Hematocrit 41.1 % (33.0-51.0); Hemoglobin 13.4 g/dL (11.5-16.0); IMMATURE GRAN ABSOLUTE AUTO 0.02 K/mm3 (0.00-0.10); IMMATURE GRAN PERCENT AUTO 0 % (0-1); LYMPHOCYTES ABSOLUTE AUTO 2.58 K/mm3 (0.84-5.20); LYMPHOCYTES PERCENT AUTO 41 % (21-46); MONOCYTES ABSOLUTE AUTO 0.92 K/mm3 (0.16-1.47); MONOCYTES PERCENT AUTO 15 % (4-13); Mean Corpuscular HGB 29.9 pg (26.0-34.0); Mean Corpuscular HGB Conc 32.6 g/dL (31.5-36.5); Mean Corpuscular Volume 92 fL (80-100); Mean Platelet Volume 10.1 fL (9.1-12.4); NEUTROPHILS ABSOLUTE AUTO 2.66 K/mm3 (1.96-9.15); NEUTROPHILS PERCENT AUTO 42 % (41-73); Platelet Count 340 K/mm3 (150-400); Red Blood Cell Count 4.48 M/mm3 (3.80-5.20); White Blood Cell Count 6.27 K/mm3 (4.00-11.30)
[2019-06-23 19:40] LABS: Alanine Aminotransfer (ALT/SGP 20 U/L (12-78); Albumin, Blood 4.1 g/dL (3.4-5.0); Alk Phos 95 U/L (50-136); Anion Gap 8 mmol/L (6-16); Aspartate Aminotrans (AST/SGOT 22 U/L (12-37); Bilirubin, Total 0.6 mg/dL (0.1-1.0); Blood Urea Nitrogen 8 mg/dL (8-24); Bun/Creatinine Ratio 15.1 (12.0-20.0); CO2, Blood 27 mmol/L (21-32); Calcium, Blood 9.5 mg/dL (8.5-10.1); Chloride, Blood 100 mmol/L (98-108); Creatinine, Blood 0.53 mg/dL (0.40-1.00); Glomerular Filtration Rate >60 (60-); Glucose, Blood 103 mg/dL (70-99); Magnesium, Blood 1.6 mg/dL (1.6-2.4); Potassium, Blood 3.2 mmol/L (3.5-5.5); Sodium, Blood 135 mmol/L (136-145); Total Protein, Blood 8.1 g/dL (6.4-8.2)
== END | disposition home or self-care (01) ==
LOC: LAB 18:19 → LAB SHORT 18:19
PROVIDERS: Nurse Practitioner Family
DX: K85.90 Acute pancreatitis without necrosis or infection, unspecified (principal)
CPT/HCPCS: 80053; 83690; 83735; 85025

== ENCOUNTER → 2019-07-14 | Outpatient (CLI) | payer OTHER ==
[2019-07-14 18:02] LABS: BASOPHILS ABSOLUTE AUTO 0.04 K/mm3 (0.00-0.23); BASOPHILS PERCENT AUTO 1 % (0-2); EOSINOPHILS ABSOLUTE AUTO 0.07 K/mm3 (0.00-0.68); EOSINOPHILS PERCENT AUTO 1 % (0-6); Hematocrit 41.3 % (33.0-51.0); Hemoglobin 13.3 g/dL (11.5-16.0); IMMATURE GRAN ABSOLUTE AUTO 0.02 K/mm3 (0.00-0.10); IMMATURE GRAN PERCENT AUTO 0 % (0-1); LYMPHOCYTES ABSOLUTE AUTO 2.16 K/mm3 (0.84-5.20); LYMPHOCYTES PERCENT AUTO 26 % (21-46); MONOCYTES ABSOLUTE AUTO 1.05 K/mm3 (0.16-1.47); MONOCYTES PERCENT AUTO 12 % (4-13); Mean Corpuscular HGB 30.2 pg (26.0-34.0); Mean Corpuscular HGB Conc 32.2 g/dL (31.5-36.5); Mean Corpuscular Volume 94 fL (80-100); NEUTROPHILS ABSOLUTE AUTO 5.12 K/mm3 (1.96-9.15); NEUTROPHILS PERCENT AUTO 61 % (41-73); Platelet Count 326 K/mm3 (150-400); RDW Coefficient Variation 15.9 % (11.7-14.2); RDW Standard Deviation 54.1 fL (35.1-46.3); White Blood Cell Count 8.46 K/mm3 (4.00-11.30)
[2019-07-14 18:52] LABS: Alanine Aminotransfer (ALT/SGP 20 U/L (12-78); Albumin, Blood 4.1 g/dL (3.4-5.0); Alk Phos 110 U/L (50-136); Anion Gap 4 mmol/L (6-16); Aspartate Aminotrans (AST/SGOT 22 U/L (12-37); Bilirubin, Total 0.3 mg/dL (0.1-1.0); Blood Urea Nitrogen 8 mg/dL (8-24); Bun/Creatinine Ratio 14.4 (12.0-20.0); CO2, Blood 29 mmol/L (21-32); Calcium, Blood 9.7 mg/dL (8.5-10.1); Chloride, Blood 104 mmol/L (98-108); Creatinine, Blood 0.56 mg/dL (0.40-1.00); Globulin, Blood 4.3 g/dL (2.2-4.0); Glomerular Filtration Rate >60 (60-); Glucose, Blood 88 mg/dL (70-99); Potassium, Blood 4.2 mmol/L (3.5-5.5); Sodium, Blood 137 mmol/L (136-145); Total Protein, Blood 8.4 g/dL (6.4-8.2)
== END | disposition home or self-care (01) ==
LOC: LAB SHORT 16:40 → LAB 16:40 → LAB FUT 07-14 08:25 → EDSTATUS 07-14 08:25
PROVIDERS: Nurse Practitioner Family
DX: K85.90 Acute pancreatitis without necrosis or infection, unspecified (principal)
CPT/HCPCS: 80053; 83690; 85025

== ENCOUNTER → 2019-07-29 | Outpatient (CLI) | payer OTHER ==
[2019-07-29 17:59] LABS: BASOPHILS ABSOLUTE AUTO 0.06 K/mm3 (0.00-0.23); BASOPHILS PERCENT AUTO 1 % (0-2); EOSINOPHILS ABSOLUTE AUTO 0.07 K/mm3 (0.00-0.68); EOSINOPHILS PERCENT AUTO 1 % (0-6); Hematocrit 43.2 % (33.0-51.0); Hemoglobin 14.3 g/dL (11.5-16.0); IMMATURE GRAN ABSOLUTE AUTO 0.03 K/mm3 (0.00-0.10); IMMATURE GRAN PERCENT AUTO 0 % (0-1); LYMPHOCYTES ABSOLUTE AUTO 2.82 K/mm3 (0.84-5.20); LYMPHOCYTES PERCENT AUTO 34 % (21-46); MONOCYTES ABSOLUTE AUTO 1.05 K/mm3 (0.16-1.47); MONOCYTES PERCENT AUTO 13 % (4-13); Mean Corpuscular HGB 30.6 pg (26.0-34.0); Mean Corpuscular HGB Conc 33.1 g/dL (31.5-36.5); Mean Corpuscular Volume 92 fL (80-100); Mean Platelet Volume 10.5 fL (9.1-12.4); NEUTROPHILS ABSOLUTE AUTO 4.18 K/mm3 (1.96-9.15); NEUTROPHILS PERCENT AUTO 51 % (41-73); Platelet Count 257 K/mm3 (150-400); RDW Coefficient Variation 14.3 % (11.7-14.2); RDW Standard Deviation 48.4 fL (35.1-46.3); Red Blood Cell Count 4.68 M/mm3 (3.80-5.20); White Blood Cell Count 8.21 K/mm3 (4.00-11.30)
[2019-07-29 18:24] LABS: Alanine Aminotransfer (ALT/SGP 21 U/L (12-78); Albumin, Blood 4.6 g/dL (3.4-5.0); Albumin/Globulin Ratio 1.1 (0.8-1.8); Alk Phos 111 U/L (50-136); Anion Gap 11 mmol/L (6-16); Aspartate Aminotrans (AST/SGOT 31 U/L (12-37); Bilirubin, Total 0.9 mg/dL (0.1-1.0); Blood Urea Nitrogen 8 mg/dL (8-24); Bun/Creatinine Ratio 15.7 (12.0-20.0); CO2, Blood 24 mmol/L (21-32); Calcium, Blood 9.6 mg/dL (8.5-10.1); Chloride, Blood 94 mmol/L (98-108); Creatinine, Blood 0.51 mg/dL (0.40-1.00); Globulin, Blood 4.2 g/dL (2.2-4.0); Glomerular Filtration Rate >60 (60-); Glucose, Blood 80 mg/dL (70-99); Potassium, Blood 3.7 mmol/L (3.5-5.5); Sodium, Blood 129 mmol/L (136-145); Total Protein, Blood 8.8 g/dL (6.4-8.2)
== END | disposition home or self-care (01) ==
LOC: LAB SHORT 16:23 → LAB 16:23
PROVIDERS: Nurse Practitioner Family
DX: K85.90 Acute pancreatitis without necrosis or infection, unspecified (principal)
CPT/HCPCS: 80053; 83690; 85025

== ENCOUNTER 2019-08-02 04:43 | Inpatient (IN) | payer OTHER ==
[~2019-08-02] VITALS: Ht 157.5 cm; Wt 40.9 kg
[2019-08-02 05:53] LABS: BASOPHILS ABSOLUTE AUTO 0.02 K/mm3 (0.00-0.23); BASOPHILS PERCENT AUTO 0 % (0-2); EOSINOPHILS PERCENT AUTO 0 % (0-6); Hematocrit 39.1 % (33.0-51.0); Hemoglobin 13.3 g/dL (11.5-16.0); IMMATURE GRAN ABSOLUTE AUTO 0.04 K/mm3 (0.00-0.10); IMMATURE GRAN PERCENT AUTO 1 % (0-1); LYMPHOCYTES ABSOLUTE AUTO 0.92 K/mm3 (0.84-5.20); LYMPHOCYTES PERCENT AUTO 14 % (21-46); MONOCYTES ABSOLUTE AUTO 0.47 K/mm3 (0.16-1.47); MONOCYTES PERCENT AUTO 7 % (4-13); Mean Corpuscular HGB 31.4 pg (26.0-34.0); Mean Corpuscular Volume 92 fL (80-100); Mean Platelet Volume 9.5 fL (9.1-12.4); NEUTROPHILS ABSOLUTE AUTO 5.08 K/mm3 (1.96-9.15); NEUTROPHILS PERCENT AUTO 78 % (41-73); Platelet Count 262 K/mm3 (150-400); RDW Coefficient Variation 13.8 % (11.7-14.2); RDW Standard Deviation 47.1 fL (35.1-46.3); Red Blood Cell Count 4.24 M/mm3 (3.80-5.20); White Blood Cell Count 6.53 K/mm3 (4.00-11.30)
[2019-08-02 06:05] LABS: Alanine Aminotransfer (ALT/SGP 22 U/L (12-78); Albumin, Blood 4.4 g/dL (3.4-5.0); Alk Phos 98 U/L (50-136); Anion Gap 10 mmol/L (6-16); Aspartate Aminotrans (AST/SGOT 21 U/L (12-37); Bilirubin, Total 0.5 mg/dL (0.1-1.0); Blood Urea Nitrogen 8 mg/dL (8-24); Bun/Creatinine Ratio 16.8 (12.0-20.0); CO2, Blood 29 mmol/L (21-32); Calcium, Blood 9.5 mg/dL (8.5-10.1); Chloride, Blood 90 mmol/L (98-108); Creatinine, Blood 0.48 mg/dL (0.40-1.00); Globulin, Blood 4.5 g/dL (2.2-4.0); Glomerular Filtration Rate >60 (60-); Glucose, Blood 115 mg/dL (70-99); International Normalized Ratio 1.02; Magnesium, Blood 1.6 mg/dL (1.6-2.4); Potassium, Blood 3.8 mmol/L (3.5-5.5); Prothrombin Time Results 10.9 Sec (9.7-11.5); Sodium, Blood 129 mmol/L (136-145); Total Protein, Blood 8.9 g/dL (6.4-8.2); Troponin I <0.015 ng/mL (0.000-0.040)
[2019-08-02 09:50] LABS: Magnesium, Blood 1.6 mg/dL (1.6-2.4); Phosphorus, Blood 4.2 mg/dL (2.5-4.9)
[2019-08-02 09:55] LABS: Thyroid Stimulating Hormone 1.55 uIU/mL (0.360-4.800)
--- NOTE | 2019-08-02 11:45 | NUR ---
0985 PT ADMITTED TO MEDICAL FLOOR VIA GURNEY. PT SELF TRANSFERED TO BED WITHOUT ISSUE. PT DENIES NAUSEA, SOB. PT REPORTS MILD PAIN, DENIES NEED FOR PAIN MEDICATIONS. IV FLUIDS INFUSING. 1135 PT IN ESCORTED IN W/C BY OUTSIDE TO SMOKE. IV SL. TELE MONITOR NOTIFIED.
--- NOTE | 2019-08-02 13:05 | NUR ---
1245 PT RETURNED FROM SMOKING. PT WARNED THAT WHILE ADMITTED TO HOSPITAL SHE CAN NOT LEAVE ROOM FOR LONGER THAN ONE HOUR AND THAT SHE MAY NOT LEAVE THE HOSPITAL GROUNDS. MARIJUANA OBSERVED IN PT'S PURSE, PT WARNED THAT IT IS PROHIBITED IN THE HOSPITAL. SIGNIFICANT OTHER REPORTED THAT HE WILL TAKE IT HOME. SIGNIFICANT OTHER AT BEDSIDE. 1305 PT WORKING WITH PHYSICAL THERAPY.
--- NOTE | 2019-08-02 18:43 | NUR ---
SHIFT SUMMARY. A&OX4, INDEPENDENT IN ROOM. PT CONTINUES WITH IV FLUIDS. CIWA NEGATIVE THUS FAR. PT DENIES NAUSEA, PT MEDICATED FOR EPIGASTRIC PAIN ONCE THIS SHIFT. PT DENIES SOB. PT TOLERATED CLEAR LIQUIDS WELL. NO NEW CHANGES OR CONCERNS.
--- NOTE | 2019-08-03 05:07 | NUR ---
SHIFT SUMMARY PATIENT ALERT AND ORIENTED. COMPLAINED OF PAIN IN HER ABDOMEN AT LEVELS BETWEEN 7-10/10. HEATING PACK PROVIDED TO HELP AND PATIENT MEDICATED PER EMAR.IV PATENT AND INFUSING. BED IN LOWEST POSITION WITH WHEELS LOCKED. CALL LIGHT AND BELONGINGS WITHIN REACH. REPORT GIVEN TO ONCOMING RN.
[2019-08-03 05:21] LABS: BASOPHILS ABSOLUTE AUTO 0.03 K/mm3 (0.00-0.23); BASOPHILS PERCENT AUTO 0 % (0-2); EOSINOPHILS ABSOLUTE AUTO 0.06 K/mm3 (0.00-0.68); EOSINOPHILS PERCENT AUTO 1 % (0-6); Hematocrit 34.8 % (33.0-51.0); Hemoglobin 11.6 g/dL (11.5-16.0); IMMATURE GRAN ABSOLUTE AUTO 0.05 K/mm3 (0.00-0.10); IMMATURE GRAN PERCENT AUTO 1 % (0-1); LYMPHOCYTES ABSOLUTE AUTO 1.72 K/mm3 (0.84-5.20); LYMPHOCYTES PERCENT AUTO 18 % (21-46); MONOCYTES ABSOLUTE AUTO 1.19 K/mm3 (0.16-1.47); MONOCYTES PERCENT AUTO 13 % (4-13); Mean Corpuscular HGB 31.3 pg (26.0-34.0); Mean Corpuscular HGB Conc 33.3 g/dL (31.5-36.5); Mean Corpuscular Volume 94 fL (80-100); Mean Platelet Volume 9.6 fL (9.1-12.4); NEUTROPHILS ABSOLUTE AUTO 6.31 K/mm3 (1.96-9.15); NEUTROPHILS PERCENT AUTO 68 % (41-73); Platelet Count 237 K/mm3 (150-400); RDW Coefficient Variation 13.9 % (11.7-14.2); RDW Standard Deviation 48.1 fL (35.1-46.3); Red Blood Cell Count 3.71 M/mm3 (3.80-5.20); White Blood Cell Count 9.36 K/mm3 (4.00-11.30)
[2019-08-03 05:45] LABS: Magnesium, Blood 1.7 mg/dL (1.6-2.4)
[2019-08-03 05:53] LABS: Alanine Aminotransfer (ALT/SGP 14 U/L (12-78); Albumin, Blood 3.5 g/dL (3.4-5.0); Alk Phos 72 U/L (50-136); Amylase, Blood 158 U/L (25-115); Anion Gap 8 mmol/L (6-16); Aspartate Aminotrans (AST/SGOT 18 U/L (12-37); Bilirubin, Total 0.5 mg/dL (0.1-1.0); Blood Urea Nitrogen 6 mg/dL (8-24); Bun/Creatinine Ratio 13.9 (12.0-20.0); CO2, Blood 27 mmol/L (21-32); Calcium, Blood 8.7 mg/dL (8.5-10.1); Chloride, Blood 97 mmol/L (98-108); Creatinine, Blood 0.43 mg/dL (0.40-1.00); Glomerular Filtration Rate >60 (60-); Glucose, Blood 103 mg/dL (70-99); Phosphorus, Blood 2.7 mg/dL (2.5-4.9); Potassium, Blood 2.8 mmol/L (3.5-5.5); Sodium, Blood 132 mmol/L (136-145)
[2019-08-03 05:58] LABS: Albumin/Globulin Ratio 1.1 (0.8-1.8); Globulin, Blood 3.3 g/dL (2.2-4.0); Total Protein, Blood 6.8 g/dL (6.4-8.2)
--- NOTE | 2019-08-03 17:02 | NUR ---
SHE HAS FELT MILD TO SEVERE ABD PAIN TODAY DEPENDING ON THE HOUR. THE FENTANYL IS EFFECTIVE. NO EMESIS. THE ZOFRAN AND COMPAZINE ARE ALSO EFFECTIVE FOR HER NAUSEA. NOT TAKING MUCH LIQUID PO. KCL, KPHOS, AND MGS04 HAVE ALL BEEN GIVEN TO HER TODAY. SHE HAS SLEPT A LOT. JUST BEFORE LUNCH, SHE HAD HER WORST PAIN FOR THE DAY SO FAR. LOWEST CBG TODAY WAS 108. KNEE TEDS ON BILAT. TELE NSR. NO OTHER COMPLAINTS. IVF'S CONTINUE.
--- NOTE | 2019-08-04 05:12 | NUR ---
DEV TECHNICAL MGR SUMMARY NO ACUTE CHANGES THIS SHIFT. PT AAOX4 AND PLEASANT. STILL COMPLAINS OF ABD PAIN WELL NAUSEA. GIVEN FENTANYL 25 MCG X2 TONIGHT WELL ZOFRAN X1. PT HAS BEEN ABLE TO REST MOST OF THE NIGHT AFTER PAIN AND NAUSEA MEDS GIVEN. VSS, WILL CONTINUE TO MONITOR.
[2019-08-04 08:17] LABS: BASOPHILS ABSOLUTE AUTO 0.01 K/mm3 (0.00-0.23); BASOPHILS PERCENT AUTO 0 % (0-2); EOSINOPHILS ABSOLUTE AUTO 0.03 K/mm3 (0.00-0.68); EOSINOPHILS PERCENT AUTO 0 % (0-6); Hematocrit 42.3 % (33.0-51.0); Hemoglobin 14.3 g/dL (11.5-16.0); IMMATURE GRAN ABSOLUTE AUTO 0.05 K/mm3 (0.00-0.10); IMMATURE GRAN PERCENT AUTO 1 % (0-1); LYMPHOCYTES ABSOLUTE AUTO 1.49 K/mm3 (0.84-5.20); LYMPHOCYTES PERCENT AUTO 16 % (21-46); MONOCYTES ABSOLUTE AUTO 1.42 K/mm3 (0.16-1.47); MONOCYTES PERCENT AUTO 15 % (4-13); Mean Corpuscular HGB Conc 33.8 g/dL (31.5-36.5); Mean Corpuscular Volume 92 fL (80-100); Mean Platelet Volume 9.4 fL (9.1-12.4); NEUTROPHILS ABSOLUTE AUTO 6.33 K/mm3 (1.96-9.15); NEUTROPHILS PERCENT AUTO 68 % (41-73); Platelet Count 205 K/mm3 (150-400); RDW Coefficient Variation 13.7 % (11.7-14.2); RDW Standard Deviation 46.3 fL (35.1-46.3); Red Blood Cell Count 4.61 M/mm3 (3.80-5.20); White Blood Cell Count 9.33 K/mm3 (4.00-11.30)
[2019-08-04 08:30] LABS: Anion Gap 10 mmol/L (6-16); Blood Urea Nitrogen 2 mg/dL (8-24); CO2, Blood 26 mmol/L (21-32); Calcium, Blood 8.4 mg/dL (8.5-10.1); Chloride, Blood 95 mmol/L (98-108); Glomerular Filtration Rate >60 (60-); Glucose, Blood 102 mg/dL (70-99); Magnesium, Blood 1.6 mg/dL (1.6-2.4); Potassium, Blood 2.9 mmol/L (3.5-5.5); Sodium, Blood 131 mmol/L (136-145)
[2019-08-04 17:13] LABS: Anion Gap 6 mmol/L (6-16); Blood Urea Nitrogen 6 mg/dL (8-24); Bun/Creatinine Ratio 8.6 (12.0-20.0); CO2, Blood 29 mmol/L (21-32); Calcium, Blood 8.4 mg/dL (8.5-10.1); Chloride, Blood 92 mmol/L (98-108); Creatinine, Blood 0.69 mg/dL (0.40-1.00); Glomerular Filtration Rate >60 (60-); Glucose, Blood 79 mg/dL (70-99); Potassium, Blood 3.7 mmol/L (3.5-5.5); Sodium, Blood 127 mmol/L (136-145)
[2019-08-04] MEDS ORDERED: K-Dur20 MEQ PO (19:19)
--- NOTE | 2019-08-04 19:43 | NUR ---
SHE HAS HAD A VERY GOOD DAY. HER ABD PAIN IS NEGLIGIBLE. NO N/V. UP AD ABEL. SHE WAS INCONTINENT OF BOTH URINE AND STOOL TODAY ONCE EACH. SHE SHOWERED TWICE. IV ELECTROLYTE REPLACEMENT DONE PLUS PO POTASSIUM. K+ LEVEL UP TO 3.7. DISCHARGE ORDER RECEIVED. SHE IS HAPPY TO GO HOME. SHE HAS HER DC INSTRUCTIONS, IS DRESSED AND WAITING FOR HER RIDE TO PICK HER UP.
== END 2019-08-04 19:53 | disposition home or self-care (01) | DRG 439 ==
LOC: ER 04:43 → MEDS 09:47
PROVIDERS: Emergency Medicine; Internal Medicine; ADMIT Family Medicine
DX: K85.90 Acute pancreatitis without necrosis or infection, unspecified (principal); E87.1 Hypo-osmolality and hyponatremia; J44.9 Chronic obstructive pulmonary disease, unspecified; F17.210 Nicotine dependence, cigarettes, uncomplicated; F12.10 Cannabis abuse, uncomplicated; E87.6 Hypokalemia; F10.10 Alcohol abuse, uncomplicated; B19.20 Unspecified viral hepatitis C without hepatic coma
CPT/HCPCS: 36415; 80048; 80053; 82140; 82150; 82330; 82550; 82947; 83615; 83690; 83735; 84100; 84443; 84484; 85025; 85610; 93005; 93010; 96361; 96374; 96375; 97112; 97161; 99285-25; J0780; J1170; J1650; J2405; J3010; J3411; J3475; J7030; J7042; J7060; J7120

== ENCOUNTER → 2019-08-18 | Outpatient (CLI) | payer OTHER ==
[2019-08-18 17:48] LABS: BASOPHILS ABSOLUTE AUTO 0.04 K/mm3 (0.00-0.23); BASOPHILS PERCENT AUTO 1 % (0-2); EOSINOPHILS ABSOLUTE AUTO 0.05 K/mm3 (0.00-0.68); EOSINOPHILS PERCENT AUTO 1 % (0-6); Hematocrit 39.9 % (33.0-51.0); Hemoglobin 12.9 g/dL (11.5-16.0); IMMATURE GRAN ABSOLUTE AUTO 0.03 K/mm3 (0.00-0.10); IMMATURE GRAN PERCENT AUTO 0 % (0-1); LYMPHOCYTES PERCENT AUTO 28 % (21-46); MONOCYTES ABSOLUTE AUTO 0.71 K/mm3 (0.16-1.47); MONOCYTES PERCENT AUTO 11 % (4-13); Mean Corpuscular HGB 30.8 pg (26.0-34.0); Mean Corpuscular HGB Conc 32.3 g/dL (31.5-36.5); Mean Corpuscular Volume 95 fL (80-100); Mean Platelet Volume 9.7 fL (9.1-12.4); NEUTROPHILS PERCENT AUTO 60 % (41-73); Platelet Count 325 K/mm3 (150-400); RDW Coefficient Variation 14.2 % (11.7-14.2); RDW Standard Deviation 49.5 fL (35.1-46.3); Red Blood Cell Count 4.19 M/mm3 (3.80-5.20); White Blood Cell Count 6.73 K/mm3 (4.00-11.30)
[2019-08-18 19:05] LABS: Alanine Aminotransfer (ALT/SGP 21 U/L (12-78); Albumin, Blood 4.1 g/dL (3.4-5.0); Alk Phos 87 U/L (50-136); Anion Gap 8 mmol/L (6-16); Aspartate Aminotrans (AST/SGOT 21 U/L (12-37); Bilirubin, Total 0.3 mg/dL (0.1-1.0); Blood Urea Nitrogen 11 mg/dL (8-24); Bun/Creatinine Ratio 16.3 (12.0-20.0); CO2, Blood 24 mmol/L (21-32); Calcium, Blood 9.3 mg/dL (8.5-10.1); Chloride, Blood 101 mmol/L (98-108); Creatinine, Blood 0.68 mg/dL (0.40-1.00); Glomerular Filtration Rate >60 (60-); Glucose, Blood 110 mg/dL (70-99); Potassium, Blood 3.7 mmol/L (3.5-5.5); Sodium, Blood 133 mmol/L (136-145); Total Protein, Blood 8.1 g/dL (6.4-8.2)
== END | disposition home or self-care (01) ==
LOC: LAB 16:13 → LAB SHORT 16:13
PROVIDERS: Nurse Practitioner Family
DX: K85.90 Acute pancreatitis without necrosis or infection, unspecified (principal)
CPT/HCPCS: 80053; 83690; 85025

== ENCOUNTER → 2019-09-23 | Outpatient (CLI) | payer OTHER ==
[2019-10-10 06:08] LABS: HEPATITIS C QUANTITATION HCV Not Detected IU/mL (.)
== END | disposition home or self-care (01) ==
LOC: LAB 16:29 → LAB SHORT 16:29 → LAB FUT 09-22 10:50 → EDSTATUS 09-22 10:50
PROVIDERS: Nurse Practitioner Family
DX: B19.20 Unspecified viral hepatitis C without hepatic coma (principal)
CPT/HCPCS: 87522

== ENCOUNTER 2019-11-23 07:57 | Day surgery (SDC) | payer OTHER ==
[2019-11-23] MEDS ORDERED: CENTRUM SILVER1 EAC2 (08:24)
== END 2019-11-23 12:22 | disposition home or self-care (01) ==
PROVIDERS: Internal Medicine Gastroenterology
PROC: 0DB68ZX Excision of Stomach, Via Natural or Artificial Opening Endoscopic, Diagnostic (ICD-10-PCS; principal; 2019-11-23 09:15)
PROC: 0DB98ZX Excision of Duodenum, Via Natural or Artificial Opening Endoscopic, Diagnostic (ICD-10-PCS; principal; 2019-11-23 09:15)
PROC: 0DJD8ZZ Inspection of Lower Intestinal Tract, Via Natural or Artificial Opening Endoscopic (ICD-10-PCS; principal; 2019-11-23 09:15)
DX: R19.7 Diarrhea, unspecified (principal); K25.9 Gastric ulcer, unspecified as acute or chronic, without hemorrhage or perforation; K29.80 Duodenitis without bleeding; R10.9 Unspecified abdominal pain; J44.9 Chronic obstructive pulmonary disease, unspecified; E78.5 Hyperlipidemia, unspecified; F17.210 Nicotine dependence, cigarettes, uncomplicated

== ENCOUNTER → 2019-12-10 | Outpatient (CLI) | payer OTHER ==
[~2019-12-10] MED LIST changes: +CENTRUM SILVER1 EAC2
[2019-12-10 17:19] LABS: BASOPHILS ABSOLUTE AUTO 0.04 K/mm3 (0.00-0.23); BASOPHILS PERCENT AUTO 1 % (0-2); EOSINOPHILS ABSOLUTE AUTO 0.06 K/mm3 (0.00-0.68); EOSINOPHILS PERCENT AUTO 1 % (0-6); Hematocrit 38.3 % (33.0-51.0); Hemoglobin 12.6 g/dL (11.5-16.0); IMMATURE GRAN ABSOLUTE AUTO 0.06 K/mm3 (0.00-0.10); IMMATURE GRAN PERCENT AUTO 1 % (0-1); LYMPHOCYTES PERCENT AUTO 24 % (21-46); MONOCYTES ABSOLUTE AUTO 1.65 K/mm3 (0.16-1.47); MONOCYTES PERCENT AUTO 23 % (4-13); Mean Corpuscular HGB 30.3 pg (26.0-34.0); Mean Corpuscular HGB Conc 32.9 g/dL (31.5-36.5); Mean Corpuscular Volume 92 fL (80-100); Mean Platelet Volume 9.3 fL (9.1-12.4); NEUTROPHILS ABSOLUTE AUTO 3.59 K/mm3 (1.96-9.15); NEUTROPHILS PERCENT AUTO 51 % (41-73); Platelet Count 249 K/mm3 (150-400); RDW Coefficient Variation 14.6 % (11.7-14.2); RDW Standard Deviation 49.4 fL (35.1-46.3); Red Blood Cell Count 4.16 M/mm3 (3.80-5.20)
[2019-12-10 18:19] LABS: Alanine Aminotransfer (ALT/SGP 53 U/L (12-78); Albumin/Globulin Ratio 1.1 (0.8-1.8); Alk Phos 106 U/L (50-136); Anion Gap 11 mmol/L (6-16); Aspartate Aminotrans (AST/SGOT 64 U/L (12-37); Bilirubin, Total 0.5 mg/dL (0.1-1.0); Blood Urea Nitrogen 6 mg/dL (8-24); Bun/Creatinine Ratio 12.4 (12.0-20.0); CO2, Blood 26 mmol/L (21-32); Calcium, Blood 9.1 mg/dL (8.5-10.1); Chloride, Blood 93 mmol/L (98-108); Creatinine, Blood 0.48 mg/dL (0.40-1.00); Globulin, Blood 3.6 g/dL (2.2-4.0); Glomerular Filtration Rate >60 (60-); Glucose, Blood 96 mg/dL (70-99); Sodium, Blood 130 mmol/L (136-145); Total Protein, Blood 7.6 g/dL (6.4-8.2)
== END | disposition home or self-care (01) ==
LOC: LAB 16:12 → LAB SHORT 16:12
PROVIDERS: Nurse Practitioner Family
DX: K86.2 Cyst of pancreas (principal); K86.1 Other chronic pancreatitis
CPT/HCPCS: 80053; 85025

== ENCOUNTER 2020-01-12 21:53 | Inpatient (IN) | payer OTHER ==
[~2020-01-12] VITALS: Ht 154.9 cm; Wt 40.7 kg
[2020-01-12 22:19] LABS: BASOPHILS ABSOLUTE AUTO 0.02 K/mm3 (0.00-0.23); BASOPHILS PERCENT AUTO 0 % (0-2); EOSINOPHILS ABSOLUTE AUTO 0.03 K/mm3 (0.00-0.68); EOSINOPHILS PERCENT AUTO 0 % (0-6); Hematocrit 41.4 % (33.0-51.0); IMMATURE GRAN ABSOLUTE AUTO 0.04 K/mm3 (0.00-0.10); IMMATURE GRAN PERCENT AUTO 0 % (0-1); LYMPHOCYTES ABSOLUTE AUTO 1.74 K/mm3 (0.84-5.20); LYMPHOCYTES PERCENT AUTO 18 % (21-46); MONOCYTES ABSOLUTE AUTO 1.74 K/mm3 (0.16-1.47); MONOCYTES PERCENT AUTO 18 % (4-13); Mean Corpuscular HGB 30.6 pg (26.0-34.0); Mean Corpuscular HGB Conc 33.8 g/dL (31.5-36.5); Mean Corpuscular Volume 90 fL (80-100); Mean Platelet Volume 8.9 fL (9.1-12.4); NEUTROPHILS ABSOLUTE AUTO 5.87 K/mm3 (1.96-9.15); NEUTROPHILS PERCENT AUTO 62 % (41-73); Platelet Count 245 K/mm3 (150-400); RDW Coefficient Variation 14.5 % (11.7-14.2); Red Blood Cell Count 4.58 M/mm3 (3.80-5.20); White Blood Cell Count 9.44 K/mm3 (4.00-11.30)
[2020-01-12] MEDS ORDERED: RENA VITE (22:20)
[2020-01-12] MEDS ORDERED: OMEP20ER PO (22:20)
[2020-01-12 22:40] LABS: Alanine Aminotransfer (ALT/SGP 41 U/L (12-78); Albumin, Blood 4.6 g/dL (3.4-5.0); Albumin/Globulin Ratio 1.1 (0.8-1.8); Alk Phos 109 U/L (50-136); Anion Gap 14 mmol/L (6-16); Aspartate Aminotrans (AST/SGOT 76 U/L (12-37); Blood Urea Nitrogen 8 mg/dL (8-24); Bun/Creatinine Ratio 14.7 (12.0-20.0); CO2, Blood 23 mmol/L (21-32); Calcium, Blood 9.5 mg/dL (8.5-10.1); Chloride, Blood 85 mmol/L (98-108); Creatinine, Blood 0.54 mg/dL (0.40-1.00); Globulin, Blood 4.3 g/dL (2.2-4.0); Glomerular Filtration Rate >60 (60-); Glucose, Blood 85 mg/dL (70-99); Potassium, Blood 3.3 mmol/L (3.5-5.5); Sodium, Blood 122 mmol/L (136-145); Total Protein, Blood 8.9 g/dL (6.4-8.2)
[2020-01-12 23:14] LABS: Source, Urine Clean Catch
[2020-01-12 23:18] LABS: Bilirubin, Urine Neg (Neg); Blood, Urine 1+ (Neg); Glucose Qualitative, Urine Neg (Neg); Ketones, Urine 4+ (Neg); Leukocyte Esterase, Urine 2+ (Neg); Nitrite, Urine Neg (Neg); Protein, Urine Neg (Neg); Specific Gravity, Urine 1.015 (1.003-1.022); Urobilinogen, Urine NORM (Normal)
[2020-01-12 23:23] LABS: Appearance, Urine Clear (Clear); Color, Urine Yellow (P-Yellow)
[2020-01-12 23:25] LABS: Red Blood Cells, Urine 0-2 /hpf (0-2); Squamous Epithelial Cells Few /hpf (Few)
[2020-01-12 23:26] LABS: Bacteria Mod /hpf
[2020-01-13 06:55] LABS: Anion Gap 13 mmol/L (6-16); Blood Urea Nitrogen 7 mg/dL (8-24); Bun/Creatinine Ratio 14.6 (12.0-20.0); CO2, Blood 22 mmol/L (21-32); Calcium, Blood 8.4 mg/dL (8.5-10.1); Chloride, Blood 90 mmol/L (98-108); Creatinine, Blood 0.48 mg/dL (0.40-1.00); Glomerular Filtration Rate >60 (60-); Glucose, Blood 76 mg/dL (70-99); Potassium, Blood 3.4 mmol/L (3.5-5.5); Sodium, Blood 125 mmol/L (136-145)
--- NOTE | 2020-01-13 07:23 | NUR ---
01/13/20 0630 PT IMPULSIVE AND FORGETS TO CALL FOR HELP UP TO [facility] FOR VOIDINGS. REMINDED TO USE CALL HELLER WHENEVER SHE NEEDS TO GET UP. MEDICATED FREQUENTLY FOR GENERAL ABDOMINAL PAIN AND NAUSEA. CIWA SCORES DONE Q 4 HOURS. ATIVAN 1 MG IV GIVEN FOR CIWA OF 8. HEART MONITOR STABLE. HIGH FALL RISK AND BED ALARM ON AT ALL TIMES.
--- NOTE | 2020-01-13 13:56 | NUR ---
1400 EXTERNAL CATH "PURE WICK" APPLIED . SUCTION APPLIED AT 40 .
--- NOTE | 2020-01-13 18:25 | NUR ---
PT HAS SLEPT MOST OF THE SHIFT. ONLY WAKES FOR MORE PAIN MEDS OR TO BE CHANGED WHEN WET. SHE IS PLEASANT AND COOPERATIVE WITH CARES. NO ACUTE CHANGES.
--- NOTE | 2020-01-14 04:48 | NUR ---
SHIFT SUMMARY: VSS. AFEB. AAOX3. COMMUNICATING NEEDS. MEDX1 FOR ABD PAIN WITH GOOD EFFECT. REPORTS NAUSEA X1. ZOFRAN ADMINISTERED. PT DION ICE CHIPS AND SMALL AMTS OF WATER WELL. SLEPT THROUGH MOST OF THE NIGHT. CIWA SCORE OF 1. NSR, 82 PER TELE PULMONARY PHYSICIAN. T/F W/SBA TO AND FROM [facility]. NO ATTEMPTS TO SELF T/F. BED ALARM ON FOR SAFETY. NO ACUTE CHANGES OVERNIGHT. WILL CONT TO MONITOR.
[2020-01-14 04:53] LABS: BASOPHILS ABSOLUTE AUTO 0.02 K/mm3 (0.00-0.23); BASOPHILS PERCENT AUTO 0 % (0-2); EOSINOPHILS ABSOLUTE AUTO 0.03 K/mm3 (0.00-0.68); EOSINOPHILS PERCENT AUTO 0 % (0-6); Hematocrit 41.3 % (33.0-51.0); Hemoglobin 13.9 g/dL (11.5-16.0); IMMATURE GRAN ABSOLUTE AUTO 0.06 K/mm3 (0.00-0.10); IMMATURE GRAN PERCENT AUTO 1 % (0-1); LYMPHOCYTES ABSOLUTE AUTO 1.35 K/mm3 (0.84-5.20); LYMPHOCYTES PERCENT AUTO 14 % (21-46); MONOCYTES ABSOLUTE AUTO 1.31 K/mm3 (0.16-1.47); MONOCYTES PERCENT AUTO 14 % (4-13); Mean Corpuscular HGB 30.6 pg (26.0-34.0); Mean Corpuscular HGB Conc 33.7 g/dL (31.5-36.5); Mean Corpuscular Volume 91 fL (80-100); Mean Platelet Volume 9.1 fL (9.1-12.4); NEUTROPHILS ABSOLUTE AUTO 6.76 K/mm3 (1.96-9.15); NEUTROPHILS PERCENT AUTO 71 % (41-73); Platelet Count 208 K/mm3 (150-400); RDW Coefficient Variation 14.1 % (11.7-14.2); RDW Standard Deviation 46.8 fL (35.1-46.3); Red Blood Cell Count 4.54 M/mm3 (3.80-5.20); White Blood Cell Count 9.53 K/mm3 (4.00-11.30)
[2020-01-14 05:13] LABS: Magnesium, Blood 1.6 mg/dL (1.6-2.4)
[2020-01-14 05:48] LABS: Alanine Aminotransfer (ALT/SGP 37 U/L (12-78); Albumin, Blood 4.1 g/dL (3.4-5.0); Alk Phos 90 U/L (50-136); Anion Gap 15 mmol/L (6-16); Aspartate Aminotrans (AST/SGOT 49 U/L (12-37); Blood Urea Nitrogen 7 mg/dL (8-24); Bun/Creatinine Ratio 14.5 (12.0-20.0); CO2, Blood 26 mmol/L (21-32); Calcium, Blood 8.6 mg/dL (8.5-10.1); Chloride, Blood 86 mmol/L (98-108); Creatinine, Blood 0.48 mg/dL (0.40-1.00); Glomerular Filtration Rate >60 (60-); Glucose, Blood 77 mg/dL (70-99); Phosphorus, Blood 1.8 mg/dL (2.5-4.9); Potassium, Blood 2.4 mmol/L (3.5-5.5); Sodium, Blood 127 mmol/L (136-145); Total Protein, Blood 8.1 g/dL (6.4-8.2)
[2020-01-14 15:12] LABS: Anion Gap 9 mmol/L (6-16); Blood Urea Nitrogen 8 mg/dL (8-24); Bun/Creatinine Ratio 17.2 (12.0-20.0); CO2, Blood 28 mmol/L (21-32); Calcium, Blood 8.4 mg/dL (8.5-10.1); Chloride, Blood 89 mmol/L (98-108); Creatinine, Blood 0.46 mg/dL (0.40-1.00); Glomerular Filtration Rate >60 (60-); Glucose, Blood 176 mg/dL (70-99); Potassium, Blood 3.3 mmol/L (3.5-5.5); Sodium, Blood 126 mmol/L (136-145)
--- NOTE | 2020-01-14 16:40 | NUR ---
SHIFT SUMMARY PT C/O ABD PAIN ONCE THIS SHIFT. TREATED PER EMAR. PT DENIES N/V T/O SHIFT. PT STATES SHE FEELS THAT SHE IS TOLERATING INTAKE SO FAR. PT ADVANCED TO FULL LIQUID DIET AFTER LUNCH. WILL MONITOR HOW PT TOLERATES DIET. PT K INCREASED TO 3.3. K PHOSE INFUSION CURRENTLY RUNNING ORDERED. PT C/O BACK PAIN FROM LYING DOWN TOO MUCH. PT ENCOURAGED TO GET UP IN A CHAIR, BUT REFUSES AT THIS TIME. NO OTHER ACUTE CHANGES IN ASSESSMENT AT THIS TIME. VSS. WILL CONTINUE TO MONITOR UNTIL TURNOVER IS COMPLETE.
--- NOTE | 2020-01-15 04:12 | NUR ---
SHIFT SUMMARY PT CONTINUES TO COMPLAIN OF ABD PAIN OVERNIGHT, AND OCCASIONAL NAUSEA. SHE REPORTS HER PAIN AND NAUSEA WAS EXACERBATED BY DINNER. PT WAS ADVANCED TO FULL LIQUID DIET YESTERDAY. PT BOWEL TONES ARE HYPERACTIVE. ABD SOFT. SHE IS HAVING REGULAR BM'S. SBA IN ROOM. A/OX3, SLOW TO RESPOND. PLESANT WITH CARE. POSSIBLE DC TODAY. BED IN LOWEST POSITION, CALL LIGHT WITHIN REACH.
[2020-01-15 05:49] LABS: Anion Gap 8 mmol/L (6-16); Blood Urea Nitrogen 7 mg/dL (8-24); Bun/Creatinine Ratio 14.9 (12.0-20.0); CO2, Blood 30 mmol/L (21-32); Calcium, Blood 8.2 mg/dL (8.5-10.1); Chloride, Blood 89 mmol/L (98-108); Creatinine, Blood 0.47 mg/dL (0.40-1.00); Glomerular Filtration Rate >60 (60-); Glucose, Blood 94 mg/dL (70-99); Phosphorus, Blood 1.9 mg/dL (2.5-4.9); Sodium, Blood 127 mmol/L (136-145)
[2020-01-15] MEDS ORDERED: K-Phos Origina500 MG PO (11:34)
--- NOTE | 2020-01-15 13:03 | NUR ---
PATIENT D/C'D TO HOME WITH DAUGHTER VIA [facility]. RX MEDICATIONS FAXED TO [facility] IN [place]. DC INSTRUCTIONS AND EDUCATION DISCUSSED WITH PATIENT AND COPY PROVIDED. PATIENT DENIES ANY FURTHER QUESTIONS OR CONCERNS. FOLLOW UP APPT MADE FOR 01/21/20 AT 1040 AM.
== END 2020-01-15 12:40 | disposition home or self-care (01) | DRG 439 ==
LOC: ER 21:53 → MEDS 23:31 → ENPENDDIS 01-15 11:53 → MEDS 01-15 12:40
PROVIDERS: Emergency Medicine; Student in an Organized Health Care Education/Training Program; ADMIT Internal Medicine
DX: K85.20 Alcohol induced acute pancreatitis without necrosis or infection (principal); E87.1 Hypo-osmolality and hyponatremia; E44.1 Mild protein-calorie malnutrition; Z68.1 Body mass index [BMI] 19.9 or less, adult; K86.0 Alcohol-induced chronic pancreatitis; J44.9 Chronic obstructive pulmonary disease, unspecified; E87.6 Hypokalemia; E83.39 Other disorders of phosphorus metabolism; F17.210 Nicotine dependence, cigarettes, uncomplicated; B19.20 Unspecified viral hepatitis C without hepatic coma; Z87.11 Personal history of peptic ulcer disease
CPT/HCPCS: 36415; 80048; 80053; 81001; 83690; 83735; 84100; 85025; 87086; 96374; 96375; 96376; 99285-25; J1650; J2060; J2405; J3010; J3480; J7030; J7040; J7060; J7120

== ENCOUNTER 2020-01-17 09:11 | Emergency (ER) | payer OTHER ==
[~2020-01-17] VITALS: Ht 157.5 cm; Wt 43.1 kg
[~2020-01-17 09:11] MED LIST changes: +K-Phos Origina500 MG PO; +RENA VITE
[2020-01-17 10:42] LABS: BASOPHILS ABSOLUTE AUTO 0.03 K/mm3 (0.00-0.23); BASOPHILS PERCENT AUTO 1 % (0-2); EOSINOPHILS ABSOLUTE AUTO 0.04 K/mm3 (0.00-0.68); EOSINOPHILS PERCENT AUTO 1 % (0-6); IMMATURE GRAN ABSOLUTE AUTO 0.05 K/mm3 (0.00-0.10); IMMATURE GRAN PERCENT AUTO 1 % (0-1); LYMPHOCYTES ABSOLUTE AUTO 1.19 K/mm3 (0.84-5.20); LYMPHOCYTES PERCENT AUTO 20 % (21-46); MONOCYTES ABSOLUTE AUTO 1.13 K/mm3 (0.16-1.47); MONOCYTES PERCENT AUTO 19 % (4-13); Mean Corpuscular HGB 30.7 pg (26.0-34.0); Mean Corpuscular HGB Conc 33.3 g/dL (31.5-36.5); Mean Corpuscular Volume 92 fL (80-100); Mean Platelet Volume 9.2 fL (9.1-12.4); NEUTROPHILS ABSOLUTE AUTO 3.61 K/mm3 (1.96-9.15); NEUTROPHILS PERCENT AUTO 60 % (41-73); Platelet Count 207 K/mm3 (150-400); RDW Coefficient Variation 14.2 % (11.7-14.2); Red Blood Cell Count 4.24 M/mm3 (3.80-5.20); White Blood Cell Count 6.05 K/mm3 (4.00-11.30)
[2020-01-17 11:00] LABS: Alanine Aminotransfer (ALT/SGP 39 U/L (12-78); Albumin, Blood 4.1 g/dL (3.4-5.0); Alk Phos 85 U/L (50-136); Anion Gap 9 mmol/L (6-16); Aspartate Aminotrans (AST/SGOT 39 U/L (12-37); Bilirubin, Total 0.5 mg/dL (0.1-1.0); Blood Urea Nitrogen 8 mg/dL (8-24); Bun/Creatinine Ratio 17.8 (12.0-20.0); CO2, Blood 27 mmol/L (21-32); Calcium, Blood 9.1 mg/dL (8.5-10.1); Chloride, Blood 93 mmol/L (98-108); Creatinine, Blood 0.45 mg/dL (0.40-1.00); Globulin, Blood 4.1 g/dL (2.2-4.0); Glomerular Filtration Rate >60 (60-); Glucose, Blood 109 mg/dL (70-99); Potassium, Blood 3.2 mmol/L (3.5-5.5); Sodium, Blood 129 mmol/L (136-145); Total Protein, Blood 8.2 g/dL (6.4-8.2)
[2020-01-17] MEDS ORDERED: HYDR1TAB94 PO (12:17)
== END 2020-01-17 12:40 | disposition home or self-care (01) ==
LOC: ER 09:11
PROVIDERS: Emergency Medicine
DX: R10.9 Unspecified abdominal pain (principal); M54.6 Pain in thoracic spine; R58 Hemorrhage, not elsewhere classified; Z72.89 Other problems related to lifestyle; Z91.81 History of falling; Z88.8 Allergy status to other drugs, medicaments and biological substances; J44.9 Chronic obstructive pulmonary disease, unspecified; Z86.19 Personal history of other infectious and parasitic diseases; Z79.899 Other long term (current) drug therapy; F17.200 Nicotine dependence, unspecified, uncomplicated
CPT/HCPCS: 36415; 71045; 80053; 83690; 85025; 93005; 93010; 96374; 99284-25; J1170

== ENCOUNTER 2020-05-11 13:40 | Emergency (ER) | payer OTHER ==
[~2020-05-11] VITALS: Ht 157.5 cm; Wt 49.4 kg
[2020-05-11 14:21] LABS: BASOPHILS ABSOLUTE AUTO 0.04 K/mm3 (0.00-0.23); BASOPHILS PERCENT AUTO 1 % (0-2); EOSINOPHILS ABSOLUTE AUTO 0.05 K/mm3 (0.00-0.68); EOSINOPHILS PERCENT AUTO 1 % (0-6); Hematocrit 37.7 % (33.0-51.0); Hemoglobin 12.7 g/dL (11.5-16.0); IMMATURE GRAN ABSOLUTE AUTO 0.02 K/mm3 (0.00-0.10); IMMATURE GRAN PERCENT AUTO 0 % (0-1); LYMPHOCYTES ABSOLUTE AUTO 1.99 K/mm3 (0.84-5.20); LYMPHOCYTES PERCENT AUTO 26 % (21-46); MONOCYTES ABSOLUTE AUTO 0.93 K/mm3 (0.16-1.47); MONOCYTES PERCENT AUTO 12 % (4-13); Mean Corpuscular HGB 31.1 pg (26.0-34.0); Mean Corpuscular HGB Conc 33.7 g/dL (31.5-36.5); Mean Corpuscular Volume 92 fL (80-100); Mean Platelet Volume 9.4 fL (9.1-12.4); NEUTROPHILS ABSOLUTE AUTO 4.51 K/mm3 (1.96-9.15); NEUTROPHILS PERCENT AUTO 60 % (41-73); Platelet Count 294 K/mm3 (150-400); RDW Coefficient Variation 13.3 % (11.7-14.2); RDW Standard Deviation 45.4 fL (35.1-46.3); Red Blood Cell Count 4.08 M/mm3 (3.80-5.20); White Blood Cell Count 7.54 K/mm3 (4.00-11.30)
[2020-05-11 14:41] LABS: Source, Urine Clean Catch
[2020-05-11 14:54] LABS: Alanine Aminotransfer (ALT/SGP 21 U/L (12-78); Albumin, Blood 4.2 g/dL (3.4-5.0); Albumin/Globulin Ratio 1.1 (0.8-1.8); Alk Phos 75 U/L (50-136); Anion Gap 10 mmol/L (6-16); Aspartate Aminotrans (AST/SGOT 35 U/L (12-37); Bilirubin, Total 0.4 mg/dL (0.1-1.0); Blood Urea Nitrogen 11 mg/dL (8-24); CO2, Blood 24 mmol/L (21-32); Calcium, Blood 9.2 mg/dL (8.5-10.1); Chloride, Blood 100 mmol/L (98-108); Globulin, Blood 3.9 g/dL (2.2-4.0); Glomerular Filtration Rate >60 (60-); Glucose, Blood 117 mg/dL (70-99); Potassium, Blood 3.8 mmol/L (3.5-5.5); Sodium, Blood 134 mmol/L (136-145); Total Protein, Blood 8.1 g/dL (6.4-8.2)
[2020-05-11 15:09] LABS: Appearance, Urine Hazy (Clear); Bilirubin, Urine Neg (Neg); Blood, Urine 1+ (Neg); Color, Urine Yellow (P-Yellow); Glucose Qualitative, Urine Neg (Neg); Ketones, Urine Neg (Neg); Leukocyte Esterase, Urine 3+ (Neg); Nitrite, Urine Neg (Neg); Protein, Urine Neg (Neg); Specific Gravity, Urine 1.015 (1.003-1.022); Urobilinogen, Urine NORM (Normal)
[2020-05-11] MEDS ORDERED: ACET500 PO (15:13)
[2020-05-11 15:19] LABS: Amorphous Light (0-Heavy); Bacteria Mod /hpf; Red Blood Cells, Urine Not Seen /hpf (0-2); Squamous Epithelial Cells Rare /hpf (Few)
[2020-05-11] MEDS ORDERED: Roxicodone5 MG PO (16:26)
== END 2020-05-11 16:38 | disposition home or self-care (01) ==
LOC: ER 13:40
PROVIDERS: Physician Assistant
DX: K85.20 Alcohol induced acute pancreatitis without necrosis or infection (principal); J44.9 Chronic obstructive pulmonary disease, unspecified; I25.10 Atherosclerotic heart disease of native coronary artery without angina pectoris; I10 Essential (primary) hypertension; F17.210 Nicotine dependence, cigarettes, uncomplicated; Z79.899 Other long term (current) drug therapy
CPT/HCPCS: 36415; 80053; 81001; 83690; 85025; 87086; 99284; G0480

== ENCOUNTER 2020-06-23 12:47 | Emergency (ER) | payer OTHER ==
[~2020-06-23] VITALS: Ht 154.9 cm; Wt 45.4 kg
[~2020-06-23 12:47] MED LIST changes: +ACET500 PO
[2020-06-23 14:02] LABS: BASOPHILS ABSOLUTE AUTO 0.04 K/mm3 (0.00-0.23); BASOPHILS PERCENT AUTO 0 % (0-2); EOSINOPHILS ABSOLUTE AUTO 0.04 K/mm3 (0.00-0.68); EOSINOPHILS PERCENT AUTO 0 % (0-6); Hematocrit 39.8 % (33.0-51.0); Hemoglobin 13.3 g/dL (11.5-16.0); IMMATURE GRAN ABSOLUTE AUTO 0.05 K/mm3 (0.00-0.10); IMMATURE GRAN PERCENT AUTO 0 % (0-1); LYMPHOCYTES ABSOLUTE AUTO 0.94 K/mm3 (0.84-5.20); LYMPHOCYTES PERCENT AUTO 8 % (21-46); MONOCYTES ABSOLUTE AUTO 0.71 K/mm3 (0.16-1.47); MONOCYTES PERCENT AUTO 6 % (4-13); Mean Corpuscular HGB 31.4 pg (26.0-34.0); Mean Corpuscular HGB Conc 33.4 g/dL (31.5-36.5); Mean Corpuscular Volume 94 fL (80-100); Mean Platelet Volume 8.8 fL (9.1-12.4); NEUTROPHILS ABSOLUTE AUTO 10.32 K/mm3 (1.96-9.15); NEUTROPHILS PERCENT AUTO 85 % (41-73); Platelet Count 417 K/mm3 (150-400); RDW Coefficient Variation 14.6 % (11.7-14.2); RDW Standard Deviation 50.1 fL (35.1-46.3); Red Blood Cell Count 4.24 M/mm3 (3.80-5.20)
[2020-06-23 14:19] LABS: Alanine Aminotransfer (ALT/SGP 22 U/L (12-78); Albumin, Blood 4.4 g/dL (3.4-5.0); Albumin/Globulin Ratio 0.9 (0.8-1.8); Alk Phos 98 U/L (50-136); Anion Gap 18 mmol/L (6-16); Aspartate Aminotrans (AST/SGOT 52 U/L (12-37); Bilirubin, Total 0.7 mg/dL (0.1-1.0); Blood Urea Nitrogen 7 mg/dL (8-24); Bun/Creatinine Ratio 12.5 (12.0-20.0); CO2, Blood 21 mmol/L (21-32); Chloride, Blood 91 mmol/L (98-108); Creatinine, Blood 0.56 mg/dL (0.40-1.00); Glomerular Filtration Rate >60 (60-); Glucose, Blood 67 mg/dL (70-99); Sodium, Blood 130 mmol/L (136-145); Total Protein, Blood 9.4 g/dL (6.4-8.2)
[2020-06-23 19:39] LABS: Alanine Aminotransfer (ALT/SGP 18 U/L (12-78); Albumin, Blood 3.6 g/dL (3.4-5.0); Albumin/Globulin Ratio 0.9 (0.8-1.8); Alk Phos 78 U/L (50-136); Anion Gap 16 mmol/L (6-16); Aspartate Aminotrans (AST/SGOT 36 U/L (12-37); Bilirubin, Total 0.6 mg/dL (0.1-1.0); Blood Urea Nitrogen 7 mg/dL (8-24); Bun/Creatinine Ratio 14.8 (12.0-20.0); CO2, Blood 17 mmol/L (21-32); Calcium, Blood 8.4 mg/dL (8.5-10.1); Chloride, Blood 94 mmol/L (98-108); Creatinine, Blood 0.47 mg/dL (0.40-1.00); Globulin, Blood 3.9 g/dL (2.2-4.0); Glomerular Filtration Rate >60 (60-); Glucose, Blood 72 mg/dL (70-99); Potassium, Blood 3.7 mmol/L (3.5-5.5); Sodium, Blood 127 mmol/L (136-145); Total Protein, Blood 7.5 g/dL (6.4-8.2)
[2020-06-23] MEDS ORDERED: Percocet 5-3251 EACH PO (20:00)
[2020-06-23] MEDS ORDERED: ONDA4ODT MM (20:00)
== END 2020-06-23 20:20 | disposition home or self-care (01) ==
LOC: ER 12:47
PROVIDERS: Emergency Medicine; Physician Assistant
DX: K85.20 Alcohol induced acute pancreatitis without necrosis or infection (principal); K27.9 Peptic ulcer, site unspecified, unspecified as acute or chronic, without hemorrhage or perforation; F17.210 Nicotine dependence, cigarettes, uncomplicated; Z88.5 Allergy status to narcotic agent; Z79.899 Other long term (current) drug therapy
CPT/HCPCS: 36415; 80053; 83690; 85025; 96374; 96375; 99284-25; A9270; J2270; J2405; J7030

== ENCOUNTER 2020-06-27 09:56 | Emergency (ER) | payer OTHER ==
[~2020-06-27] VITALS: Ht 157.5 cm; Wt 47.6 kg
[2020-06-27] MEDS ORDERED: OMEP20ER PO (10:40)
[2020-06-27 10:54] LABS: BASOPHILS ABSOLUTE AUTO 0.04 K/mm3 (0.00-0.23); BASOPHILS PERCENT AUTO 1 % (0-2); EOSINOPHILS ABSOLUTE AUTO 0.04 K/mm3 (0.00-0.68); EOSINOPHILS PERCENT AUTO 1 % (0-6); Hematocrit 35.3 % (33.0-51.0); Hemoglobin 11.8 g/dL (11.5-16.0); IMMATURE GRAN ABSOLUTE AUTO 0.06 K/mm3 (0.00-0.10); IMMATURE GRAN PERCENT AUTO 1 % (0-1); LYMPHOCYTES PERCENT AUTO 13 % (21-46); MONOCYTES ABSOLUTE AUTO 1.19 K/mm3 (0.16-1.47); MONOCYTES PERCENT AUTO 14 % (4-13); Mean Corpuscular HGB 31.6 pg (26.0-34.0); Mean Corpuscular HGB Conc 33.4 g/dL (31.5-36.5); Mean Corpuscular Volume 95 fL (80-100); Mean Platelet Volume 8.8 fL (9.1-12.4); NEUTROPHILS ABSOLUTE AUTO 6.17 K/mm3 (1.96-9.15); NEUTROPHILS PERCENT AUTO 72 % (41-73); Platelet Count 289 K/mm3 (150-400); RDW Coefficient Variation 14.3 % (11.7-14.2); RDW Standard Deviation 49.6 fL (35.1-46.3); Red Blood Cell Count 3.73 M/mm3 (3.80-5.20)
[2020-06-27 11:15] LABS: Alanine Aminotransfer (ALT/SGP 22 U/L (12-78); Albumin, Blood 3.7 g/dL (3.4-5.0); Albumin/Globulin Ratio 0.9 (0.8-1.8); Alk Phos 81 U/L (50-136); Anion Gap 10 mmol/L (6-16); Aspartate Aminotrans (AST/SGOT 31 U/L (12-37); Bilirubin, Total 0.5 mg/dL (0.1-1.0); Blood Urea Nitrogen 8 mg/dL (8-24); Bun/Creatinine Ratio 15.6 (12.0-20.0); CO2, Blood 28 mmol/L (21-32); Calcium, Blood 9.2 mg/dL (8.5-10.1); Chloride, Blood 92 mmol/L (98-108); Creatinine, Blood 0.51 mg/dL (0.40-1.00); Globulin, Blood 4.1 g/dL (2.2-4.0); Glomerular Filtration Rate >60 (60-); Glucose, Blood 105 mg/dL (70-99); Potassium, Blood 3.1 mmol/L (3.5-5.5); Sodium, Blood 130 mmol/L (136-145); Total Protein, Blood 7.8 g/dL (6.4-8.2)
== END 2020-06-27 12:07 | disposition home or self-care (01) ==
LOC: ER 09:56
PROVIDERS: Physician Assistant
DX: K86.1 Other chronic pancreatitis (principal); J44.9 Chronic obstructive pulmonary disease, unspecified; F17.210 Nicotine dependence, cigarettes, uncomplicated; Z76.0 Encounter for issue of repeat prescription; Z88.5 Allergy status to narcotic agent; Z79.899 Other long term (current) drug therapy
CPT/HCPCS: 36415; 80053; 83690; 85025; 99283

== ENCOUNTER 2020-06-30 11:15 | Emergency (ER) | payer OTHER ==
[~2020-06-30] VITALS: Ht 157.5 cm; Wt 46.3 kg
[2020-06-30 11:47] LABS: BASOPHILS ABSOLUTE AUTO 0.03 K/mm3 (0.00-0.23); BASOPHILS PERCENT AUTO 1 % (0-2); EOSINOPHILS ABSOLUTE AUTO 0.01 K/mm3 (0.00-0.68); EOSINOPHILS PERCENT AUTO 0 % (0-6); Hematocrit 35.9 % (33.0-51.0); Hemoglobin 12.1 g/dL (11.5-16.0); IMMATURE GRAN ABSOLUTE AUTO 0.06 K/mm3 (0.00-0.10); IMMATURE GRAN PERCENT AUTO 1 % (0-1); LYMPHOCYTES ABSOLUTE AUTO 1.18 K/mm3 (0.84-5.20); LYMPHOCYTES PERCENT AUTO 24 % (21-46); MONOCYTES ABSOLUTE AUTO 0.57 K/mm3 (0.16-1.47); MONOCYTES PERCENT AUTO 12 % (4-13); Mean Corpuscular HGB 31.7 pg (26.0-34.0); Mean Corpuscular HGB Conc 33.7 g/dL (31.5-36.5); Mean Corpuscular Volume 94 fL (80-100); Mean Platelet Volume 8.6 fL (9.1-12.4); NEUTROPHILS ABSOLUTE AUTO 2.98 K/mm3 (1.96-9.15); NEUTROPHILS PERCENT AUTO 62 % (41-73); Platelet Count 332 K/mm3 (150-400); RDW Coefficient Variation 14.4 % (11.7-14.2); RDW Standard Deviation 49.2 fL (35.1-46.3); Red Blood Cell Count 3.82 M/mm3 (3.80-5.20); White Blood Cell Count 4.83 K/mm3 (4.00-11.30)
[2020-06-30 12:10] LABS: Alanine Aminotransfer (ALT/SGP 221 U/L (12-78); Albumin, Blood 3.6 g/dL (3.4-5.0); Albumin/Globulin Ratio 0.9 (0.8-1.8); Alk Phos 96 U/L (50-136); Anion Gap 8 mmol/L (6-16); Aspartate Aminotrans (AST/SGOT 987 U/L (12-37); Bilirubin, Total 0.6 mg/dL (0.1-1.0); Blood Urea Nitrogen 9 mg/dL (8-24); Bun/Creatinine Ratio 20.8 (12.0-20.0); CO2, Blood 28 mmol/L (21-32); Calcium, Blood 9.1 mg/dL (8.5-10.1); Chloride, Blood 96 mmol/L (98-108); Creatinine, Blood 0.43 mg/dL (0.40-1.00); Globulin, Blood 4.2 g/dL (2.2-4.0); Glomerular Filtration Rate >60 (60-); Glucose, Blood 123 mg/dL (70-99); Potassium, Blood 2.8 mmol/L (3.5-5.5); Sodium, Blood 132 mmol/L (136-145); Total Protein, Blood 7.8 g/dL (6.4-8.2)
[2020-06-30 12:51] LABS: Source, Urine Voided
[2020-06-30 12:53] LABS: Appearance, Urine Clear (Clear); Bilirubin, Urine Neg (Neg); Blood, Urine 1+ (Neg); Color, Urine Yellow (P-Yellow); Glucose Qualitative, Urine Neg (Neg); Ketones, Urine Neg (Neg); Leukocyte Esterase, Urine 2+ (Neg); Nitrite, Urine Neg (Neg); Protein, Urine 1+ (Neg); Urobilinogen, Urine 1+ (Normal)
[2020-06-30 13:00] LABS: Red Blood Cells, Urine 0-2 /hpf (0-2); Squamous Epithelial Cells Few /hpf (Few)
[2020-06-30 13:01] LABS: Bacteria Many /hpf
[2020-06-30] MEDS ORDERED: K-Dur20 MEQ PO (15:20)
[2020-06-30] MEDS ORDERED: ONDA4ODT MM (15:20)
[2020-06-30] MEDS ORDERED: Percocet 5-3251 EACH PO (15:20)
== END 2020-06-30 15:34 | disposition home or self-care (01) ==
LOC: ER 11:15
PROVIDERS: Emergency Medicine
DX: K86.0 Alcohol-induced chronic pancreatitis (principal); J44.9 Chronic obstructive pulmonary disease, unspecified; F17.210 Nicotine dependence, cigarettes, uncomplicated; Z88.5 Allergy status to narcotic agent
CPT/HCPCS: 36415; 80053; 81001; 83690; 85025; 87086; 93005; 93010; 96374; 96375; 99284-25; A9270; J1170; J2405

== ENCOUNTER 2020-07-15 10:01 | Emergency (ER) | payer OTHER ==
[~2020-07-15] VITALS: Ht 157.5 cm; Wt 45.4 kg
[2020-07-15] MEDS ORDERED: ACETAMINOPHEN500 MG PO (10:06)
[2020-07-15 10:23] LABS: BASOPHILS ABSOLUTE AUTO 0.04 K/mm3 (0.00-0.23); BASOPHILS PERCENT AUTO 0 % (0-2); EOSINOPHILS ABSOLUTE AUTO 0.03 K/mm3 (0.00-0.68); EOSINOPHILS PERCENT AUTO 0 % (0-6); Hematocrit 38.9 % (33.0-51.0); Hemoglobin 12.9 g/dL (11.5-16.0); IMMATURE GRAN ABSOLUTE AUTO 0.08 K/mm3 (0.00-0.10); IMMATURE GRAN PERCENT AUTO 1 % (0-1); LYMPHOCYTES ABSOLUTE AUTO 1.26 K/mm3 (0.84-5.20); LYMPHOCYTES PERCENT AUTO 11 % (21-46); MONOCYTES ABSOLUTE AUTO 1.31 K/mm3 (0.16-1.47); MONOCYTES PERCENT AUTO 12 % (4-13); Mean Corpuscular HGB 31.5 pg (26.0-34.0); Mean Corpuscular HGB Conc 33.2 g/dL (31.5-36.5); Mean Corpuscular Volume 95 fL (80-100); Mean Platelet Volume 8.5 fL (9.1-12.4); NEUTROPHILS ABSOLUTE AUTO 8.65 K/mm3 (1.96-9.15); NEUTROPHILS PERCENT AUTO 76 % (41-73); Platelet Count 423 K/mm3 (150-400); RDW Coefficient Variation 14.1 % (11.7-14.2); Red Blood Cell Count 4.09 M/mm3 (3.80-5.20); White Blood Cell Count 11.37 K/mm3 (4.00-11.30)
[2020-07-15 10:42] LABS: Alanine Aminotransfer (ALT/SGP 16 U/L (12-78); Albumin, Blood 3.2 g/dL (3.4-5.0); Albumin/Globulin Ratio 0.7 (0.8-1.8); Alk Phos 106 U/L (50-136); Anion Gap 10 mmol/L (6-16); Aspartate Aminotrans (AST/SGOT 28 U/L (12-37); Bilirubin, Total 0.8 mg/dL (0.1-1.0); Blood Urea Nitrogen 5 mg/dL (8-24); Bun/Creatinine Ratio 10.8 (12.0-20.0); CO2, Blood 23 mmol/L (21-32); Calcium, Blood 9.1 mg/dL (8.5-10.1); Chloride, Blood 99 mmol/L (98-108); Creatinine, Blood 0.46 mg/dL (0.40-1.00); Globulin, Blood 4.9 g/dL (2.2-4.0); Glomerular Filtration Rate >60 (60-); Glucose, Blood 108 mg/dL (70-99); Potassium, Blood 3.5 mmol/L (3.5-5.5); Sodium, Blood 132 mmol/L (136-145); Total Protein, Blood 8.1 g/dL (6.4-8.2)
[2020-07-15] MEDS ORDERED: Protonix40 MG PO (11:01)
[2020-07-15] MEDS ORDERED: Carafate1 GM/10 ML PO (11:01)
[2020-07-15] MEDS ORDERED: PROM25 PO (11:01)
[2020-07-15 13:30] LABS: Source, Urine Clean Catch
[2020-07-15 13:34] LABS: Bilirubin, Urine Neg (Neg); Blood, Urine Neg (Neg); Glucose Qualitative, Urine Neg (Neg); Ketones, Urine Neg (Neg); Leukocyte Esterase, Urine 1+ (Neg); Nitrite, Urine Neg (Neg); Protein, Urine Neg (Neg); Specific Gravity, Urine 1.005 (1.003-1.022); Urobilinogen, Urine NORM (Normal)
[2020-07-15 13:43] LABS: Appearance, Urine Clear (Clear); Color, Urine Yellow (P-Yellow)
[2020-07-15 13:47] LABS: Bacteria Rare /hpf; Red Blood Cells, Urine Not Seen /hpf (0-2); Squamous Epithelial Cells Rare /hpf (Few)
[2020-07-15] MEDS ORDERED: OMEPRAZOLE20 M1 PO (14:25)
[2020-07-15] MEDS ORDERED: Pepcid20 MG PO (14:25)
== END 2020-07-15 15:10 | disposition home or self-care (01) ==
LOC: ER 10:01
PROVIDERS: Physician Assistant
DX: K29.70 Gastritis, unspecified, without bleeding (principal); Z88.5 Allergy status to narcotic agent; J44.9 Chronic obstructive pulmonary disease, unspecified; F17.210 Nicotine dependence, cigarettes, uncomplicated
CPT/HCPCS: 36415; 80053; 81001; 83690; 84484; 85025; 87086; 93005; 93010; 96374; 96375; 99284-25; A9270; C9113; J1200; J2405; J2550; J7030; J7120

== ENCOUNTER 2020-09-09 20:10 | Emergency (ER) | payer OTHER ==
[~2020-09-09] VITALS: Ht 157.5 cm; Wt 44.5 kg
[~2020-09-09 20:10] MED LIST changes: +ACETAMINOPHEN500 MG PO; +Carafate1 GM/10 ML PO; +OMEPRAZOLE20 M1 PO; +Pepcid20 MG PO; +Protonix40 MG PO
[2020-09-09] MEDS ORDERED: OMEP20ER PO (20:24)
[2020-09-09 20:38] LABS: BASOPHILS ABSOLUTE AUTO 0.04 K/mm3 (0.00-0.23); BASOPHILS PERCENT AUTO 0 % (0-2); EOSINOPHILS ABSOLUTE AUTO 0.02 K/mm3 (0.00-0.68); EOSINOPHILS PERCENT AUTO 0 % (0-6); Hematocrit 31.5 % (33.0-51.0); Hemoglobin 10.7 g/dL (11.5-16.0); IMMATURE GRAN ABSOLUTE AUTO 0.11 K/mm3 (0.00-0.10); IMMATURE GRAN PERCENT AUTO 1 % (0-1); LYMPHOCYTES ABSOLUTE AUTO 1.63 K/mm3 (0.84-5.20); LYMPHOCYTES PERCENT AUTO 16 % (21-46); MONOCYTES ABSOLUTE AUTO 1.38 K/mm3 (0.16-1.47); MONOCYTES PERCENT AUTO 13 % (4-13); Mean Corpuscular HGB 30.7 pg (26.0-34.0); Mean Corpuscular Volume 90 fL (80-100); Mean Platelet Volume 8.5 fL (9.1-12.4); NEUTROPHILS ABSOLUTE AUTO 7.23 K/mm3 (1.96-9.15); NEUTROPHILS PERCENT AUTO 69 % (41-73); Platelet Count 455 K/mm3 (150-400); RDW Coefficient Variation 13.2 % (11.7-14.2); RDW Standard Deviation 43.5 fL (35.1-46.3); Red Blood Cell Count 3.49 M/mm3 (3.80-5.20); White Blood Cell Count 10.41 K/mm3 (4.00-11.30)
[2020-09-09 21:00] LABS: Alanine Aminotransfer (ALT/SGP 18 U/L (12-78); Albumin, Blood 2.3 g/dL (3.4-5.0); Albumin/Globulin Ratio 0.5 (0.8-1.8); Alk Phos 229 U/L (50-136); Anion Gap 7 mmol/L (6-16); Aspartate Aminotrans (AST/SGOT 30 U/L (12-37); Bilirubin, Total 0.2 mg/dL (0.1-1.0); Blood Urea Nitrogen 4 mg/dL (8-24); Bun/Creatinine Ratio 9.6 (12.0-20.0); CO2, Blood 25 mmol/L (21-32); Calcium, Blood 9.3 mg/dL (8.5-10.1); Chloride, Blood 94 mmol/L (98-108); Creatinine, Blood 0.42 mg/dL (0.40-1.00); Globulin, Blood 4.4 g/dL (2.2-4.0); Glomerular Filtration Rate >60 (60-); Glucose, Blood 96 mg/dL (70-99); Potassium, Blood 3.3 mmol/L (3.5-5.5); Sodium, Blood 126 mmol/L (136-145); Total Protein, Blood 6.7 g/dL (6.4-8.2)
== END 2020-09-09 23:50 | disposition home or self-care (01) ==
LOC: ER 20:10
PROVIDERS: Student in an Organized Health Care Education/Training Program
DX: S22.31XA Fracture of one rib, right side, initial encounter for closed fracture (principal); X58.XXXA Exposure to other specified factors, initial encounter
CPT/HCPCS: 71101; 80053; 83690; 85025; 96374; 99284-25; A9270; J1885

== ENCOUNTER 2020-09-12 22:23 | Emergency (ER) | payer OTHER ==
[~2020-09-12] VITALS: Ht 157.5 cm; Wt 46.7 kg
[2020-09-12 23:10] LABS: BASOPHILS ABSOLUTE AUTO 0.04 K/mm3 (0.00-0.23); BASOPHILS PERCENT AUTO 0 % (0-2); EOSINOPHILS ABSOLUTE AUTO 0.02 K/mm3 (0.00-0.68); EOSINOPHILS PERCENT AUTO 0 % (0-6); Hematocrit 32.6 % (33.0-51.0); IMMATURE GRAN ABSOLUTE AUTO 0.08 K/mm3 (0.00-0.10); IMMATURE GRAN PERCENT AUTO 1 % (0-1); LYMPHOCYTES ABSOLUTE AUTO 1.68 K/mm3 (0.84-5.20); LYMPHOCYTES PERCENT AUTO 17 % (21-46); MONOCYTES ABSOLUTE AUTO 1.34 K/mm3 (0.16-1.47); MONOCYTES PERCENT AUTO 13 % (4-13); Mean Corpuscular HGB 30.2 pg (26.0-34.0); Mean Corpuscular HGB Conc 33.7 g/dL (31.5-36.5); Mean Corpuscular Volume 90 fL (80-100); Mean Platelet Volume 8.6 fL (9.1-12.4); NEUTROPHILS ABSOLUTE AUTO 6.84 K/mm3 (1.96-9.15); NEUTROPHILS PERCENT AUTO 68 % (41-73); Platelet Count 523 K/mm3 (150-400); RDW Coefficient Variation 13.3 % (11.7-14.2); Red Blood Cell Count 3.64 M/mm3 (3.80-5.20)
[2020-09-12 23:29] LABS: Alanine Aminotransfer (ALT/SGP 15 U/L (12-78); Albumin, Blood 2.2 g/dL (3.4-5.0); Albumin/Globulin Ratio 0.5 (0.8-1.8); Alk Phos 218 U/L (50-136); Anion Gap 8 mmol/L (6-16); Aspartate Aminotrans (AST/SGOT 20 U/L (12-37); Bilirubin, Total 0.4 mg/dL (0.1-1.0); Blood Urea Nitrogen 8 mg/dL (8-24); Bun/Creatinine Ratio 15.8 (12.0-20.0); CO2, Blood 27 mmol/L (21-32); Calcium, Blood 9.2 mg/dL (8.5-10.1); Chloride, Blood 94 mmol/L (98-108); Creatinine, Blood 0.51 mg/dL (0.40-1.00); Globulin, Blood 4.4 g/dL (2.2-4.0); Glomerular Filtration Rate >60 (60-); Glucose, Blood 109 mg/dL (70-99); Potassium, Blood 3.3 mmol/L (3.5-5.5); Sodium, Blood 129 mmol/L (136-145); Total Protein, Blood 6.6 g/dL (6.4-8.2); Troponin I <0.015 ng/mL (0.000-0.040)
[2020-09-13] MEDS ORDERED: ONDA4ODT MM (01:05)
[2020-09-13] MEDS ORDERED: Protonix40 MG PO (01:05)
[2020-09-13] MEDS ORDERED: Norco 5-325 Ta1 EACH PO ×2 (01:05→19:26)
== END 2020-09-13 03:28 | disposition home or self-care (01) ==
LOC: ER 22:23
PROVIDERS: Emergency Medicine
DX: K85.90 Acute pancreatitis without necrosis or infection, unspecified (principal); F17.210 Nicotine dependence, cigarettes, uncomplicated; Z79.899 Other long term (current) drug therapy
CPT/HCPCS: 74022; 80053; 83690; 84484; 85025; 93005; 93010; 96361; 96374; 96375; 99285-25; A9270; J2405; J3010; J7030

== ENCOUNTER 2020-09-15 17:30 | Emergency (ER) | payer OTHER ==
[~2020-09-15] VITALS: Ht 157.5 cm; Wt 43.1 kg
[~2020-09-15 17:30] MED LIST changes: +Norco 5-325 Ta1 EACH PO
[2020-09-15 19:27] LABS: BASOPHILS ABSOLUTE AUTO 0.03 K/mm3 (0.00-0.23); BASOPHILS PERCENT AUTO 0 % (0-2); EOSINOPHILS ABSOLUTE AUTO 0.01 K/mm3 (0.00-0.68); EOSINOPHILS PERCENT AUTO 0 % (0-6); Hematocrit 33.5 % (33.0-51.0); Hemoglobin 11.1 g/dL (11.5-16.0); IMMATURE GRAN ABSOLUTE AUTO 0.08 K/mm3 (0.00-0.10); IMMATURE GRAN PERCENT AUTO 1 % (0-1); LYMPHOCYTES ABSOLUTE AUTO 1.28 K/mm3 (0.84-5.20); LYMPHOCYTES PERCENT AUTO 14 % (21-46); MONOCYTES ABSOLUTE AUTO 1.19 K/mm3 (0.16-1.47); MONOCYTES PERCENT AUTO 13 % (4-13); Mean Corpuscular HGB 30.4 pg (26.0-34.0); Mean Corpuscular HGB Conc 33.1 g/dL (31.5-36.5); Mean Corpuscular Volume 92 fL (80-100); Mean Platelet Volume 8.8 fL (9.1-12.4); NEUTROPHILS ABSOLUTE AUTO 6.73 K/mm3 (1.96-9.15); NEUTROPHILS PERCENT AUTO 72 % (41-73); Platelet Count 474 K/mm3 (150-400); RDW Coefficient Variation 13.9 % (11.7-14.2); RDW Standard Deviation 47.1 fL (35.1-46.3); Red Blood Cell Count 3.65 M/mm3 (3.80-5.20); White Blood Cell Count 9.32 K/mm3 (4.00-11.30)
[2020-09-15 19:41] LABS: Alanine Aminotransfer (ALT/SGP 18 U/L (12-78); Albumin, Blood 2.3 g/dL (3.4-5.0); Albumin/Globulin Ratio 0.5 (0.8-1.8); Alk Phos 228 U/L (50-136); Anion Gap 7 mmol/L (6-16); Aspartate Aminotrans (AST/SGOT 24 U/L (12-37); Bilirubin, Total 0.3 mg/dL (0.1-1.0); Blood Urea Nitrogen 7 mg/dL (8-24); Bun/Creatinine Ratio 14.6 (12.0-20.0); CO2, Blood 27 mmol/L (21-32); Chloride, Blood 97 mmol/L (98-108); Creatinine, Blood 0.48 mg/dL (0.40-1.00); Ethanol (Alcohol), Blood, Med <3 mg/dL; Globulin, Blood 4.4 g/dL (2.2-4.0); Glomerular Filtration Rate >60 (60-); Glucose, Blood 96 mg/dL (70-99); International Normalized Ratio 1.27; Magnesium, Blood 1.4 mg/dL (1.6-2.4); Potassium, Blood 3.6 mmol/L (3.5-5.5); Prothrombin Time Results 13.4 Sec (9.7-11.5); Sodium, Blood 131 mmol/L (136-145); Total Protein, Blood 6.7 g/dL (6.4-8.2)
== END 2020-09-16 04:13 | disposition home or self-care (01) ==
LOC: ER 17:30
PROVIDERS: Emergency Medicine
DX: K85.90 Acute pancreatitis without necrosis or infection, unspecified (principal); F17.210 Nicotine dependence, cigarettes, uncomplicated; Z79.899 Other long term (current) drug therapy
CPT/HCPCS: 36415; 74176; 80053; 83605; 83690; 83735; 84145; 85025; 85610; 93005; 93010; 96365; 96366; 96375; 99284-25; A9270; G0480; J1170; J3475; J7030

== ENCOUNTER 2020-09-19 21:45 | Emergency (ER) | payer OTHER ==
[~2020-09-19] VITALS: Ht 157.5 cm; Wt 45.4 kg
[2020-09-19 22:15] LABS: BASOPHILS ABSOLUTE AUTO 0.03 K/mm3 (0.00-0.23); BASOPHILS PERCENT AUTO 0 % (0-2); EOSINOPHILS ABSOLUTE AUTO 0.02 K/mm3 (0.00-0.68); EOSINOPHILS PERCENT AUTO 0 % (0-6); Hemoglobin 10.2 g/dL (11.5-16.0); IMMATURE GRAN ABSOLUTE AUTO 0.08 K/mm3 (0.00-0.10); IMMATURE GRAN PERCENT AUTO 1 % (0-1); LYMPHOCYTES ABSOLUTE AUTO 1.48 K/mm3 (0.84-5.20); LYMPHOCYTES PERCENT AUTO 15 % (21-46); MONOCYTES ABSOLUTE AUTO 1.32 K/mm3 (0.16-1.47); MONOCYTES PERCENT AUTO 14 % (4-13); Mean Corpuscular HGB 30.4 pg (26.0-34.0); Mean Corpuscular Volume 90 fL (80-100); Mean Platelet Volume 8.8 fL (9.1-12.4); NEUTROPHILS ABSOLUTE AUTO 6.68 K/mm3 (1.96-9.15); NEUTROPHILS PERCENT AUTO 70 % (41-73); Platelet Count 501 K/mm3 (150-400); RDW Coefficient Variation 14.1 % (11.7-14.2); RDW Standard Deviation 46.3 fL (35.1-46.3); Red Blood Cell Count 3.35 M/mm3 (3.80-5.20); White Blood Cell Count 9.61 K/mm3 (4.00-11.30)
[2020-09-19 22:35] LABS: Alanine Aminotransfer (ALT/SGP 18 U/L (12-78); Albumin, Blood 1.9 g/dL (3.4-5.0); Albumin/Globulin Ratio 0.5 (0.8-1.8); Alk Phos 260 U/L (50-136); Anion Gap 5 mmol/L (6-16); Aspartate Aminotrans (AST/SGOT 52 U/L (12-37); Bilirubin, Total 0.4 mg/dL (0.1-1.0); Blood Urea Nitrogen 6 mg/dL (8-24); Bun/Creatinine Ratio 15.3 (12.0-20.0); CO2, Blood 29 mmol/L (21-32); Calcium, Blood 8.2 mg/dL (8.5-10.1); Chloride, Blood 101 mmol/L (98-108); Creatinine, Blood 0.39 mg/dL (0.40-1.00); Glomerular Filtration Rate >60 (60-); Glucose, Blood 89 mg/dL (70-99); Potassium, Blood 3.8 mmol/L (3.5-5.5); Sodium, Blood 135 mmol/L (136-145); Total Protein, Blood 5.9 g/dL (6.4-8.2)
[2020-09-19] MEDS ORDERED: Sucralfate1 GM PO (23:45)
== END 2020-09-20 00:10 | disposition home or self-care (01) ==
LOC: ER 21:45
PROVIDERS: Emergency Medicine
DX: R10.9 Unspecified abdominal pain (principal); R11.2 Nausea with vomiting, unspecified; F17.210 Nicotine dependence, cigarettes, uncomplicated; Z79.899 Other long term (current) drug therapy
CPT/HCPCS: 80053; 83690; 85025; 96374; 99284-25; A9270; J2060

== ENCOUNTER 2020-09-22 20:41 | Emergency (ER) | payer OTHER ==
[~2020-09-22] VITALS: Ht 157.5 cm; Wt 45.4 kg
[~2020-09-22 20:41] MED LIST changes: +Sucralfate1 GM PO
[2020-09-22] MEDS ORDERED: OMEP20ER PO (20:58)
[2020-09-22 22:33] LABS: BASOPHILS ABSOLUTE AUTO 0.03 K/mm3 (0.00-0.23); BASOPHILS PERCENT AUTO 0 % (0-2); EOSINOPHILS ABSOLUTE AUTO 0.01 K/mm3 (0.00-0.68); EOSINOPHILS PERCENT AUTO 0 % (0-6); Hematocrit 27.1 % (33.0-51.0); Hemoglobin 9.2 g/dL (11.5-16.0); IMMATURE GRAN ABSOLUTE AUTO 0.05 K/mm3 (0.00-0.10); IMMATURE GRAN PERCENT AUTO 1 % (0-1); LYMPHOCYTES ABSOLUTE AUTO 1.15 K/mm3 (0.84-5.20); LYMPHOCYTES PERCENT AUTO 15 % (21-46); MONOCYTES ABSOLUTE AUTO 1.06 K/mm3 (0.16-1.47); MONOCYTES PERCENT AUTO 14 % (4-13); Mean Corpuscular HGB 30.5 pg (26.0-34.0); Mean Corpuscular HGB Conc 33.9 g/dL (31.5-36.5); Mean Corpuscular Volume 90 fL (80-100); Mean Platelet Volume 8.5 fL (9.1-12.4); NEUTROPHILS ABSOLUTE AUTO 5.38 K/mm3 (1.96-9.15); NEUTROPHILS PERCENT AUTO 70 % (41-73); Platelet Count 433 K/mm3 (150-400); RDW Coefficient Variation 14.6 % (11.7-14.2); RDW Standard Deviation 47.4 fL (35.1-46.3); Red Blood Cell Count 3.02 M/mm3 (3.80-5.20); White Blood Cell Count 7.68 K/mm3 (4.00-11.30)
[2020-09-22 22:53] LABS: Alanine Aminotransfer (ALT/SGP 32 U/L (12-78); Albumin, Blood 1.6 g/dL (3.4-5.0); Albumin/Globulin Ratio 0.4 (0.8-1.8); Alk Phos 275 U/L (50-136); Anion Gap 7 mmol/L (6-16); Aspartate Aminotrans (AST/SGOT 131 U/L (12-37); Bilirubin, Total 0.5 mg/dL (0.1-1.0); Blood Urea Nitrogen 5 mg/dL (8-24); Bun/Creatinine Ratio 12.5 (12.0-20.0); CO2, Blood 27 mmol/L (21-32); Calcium, Blood 7.8 mg/dL (8.5-10.1); Chloride, Blood 102 mmol/L (98-108); Globulin, Blood 3.6 g/dL (2.2-4.0); Glomerular Filtration Rate >60 (60-); Glucose, Blood 93 mg/dL (70-99); Sodium, Blood 136 mmol/L (136-145); Total Protein, Blood 5.2 g/dL (6.4-8.2)
[2020-09-22 23:08] LABS: Ethanol (Alcohol), Blood, Med <3 mg/dL
== END 2020-09-22 23:45 | disposition home or self-care (01) ==
LOC: ER 20:41
PROVIDERS: Emergency Medicine
DX: R10.9 Unspecified abdominal pain (principal); R11.0 Nausea; R19.7 Diarrhea, unspecified; F17.210 Nicotine dependence, cigarettes, uncomplicated; Z88.5 Allergy status to narcotic agent; Z79.899 Other long term (current) drug therapy
CPT/HCPCS: 80053; 83690; 85025; 96374; 96375; 99284-25; G0480; J2405; J3010; J7030

== ENCOUNTER 2020-09-28 10:52 | Inpatient (IN) | payer OTHER ==
[~2020-09-28] VITALS: Ht 157.5 cm; Wt 37.1 kg
[2020-09-28] MEDS ORDERED: IBUPROFEN IB200 MG PO (11:04)
[2020-09-28 12:14] LABS: BASOPHILS ABSOLUTE AUTO 0.02 K/mm3 (0.00-0.23); BASOPHILS PERCENT AUTO 0 % (0-2); EOSINOPHILS ABSOLUTE AUTO 0.01 K/mm3 (0.00-0.68); EOSINOPHILS PERCENT AUTO 0 % (0-6); Hematocrit 33.9 % (33.0-51.0); Hemoglobin 11.6 g/dL (11.5-16.0); IMMATURE GRAN ABSOLUTE AUTO 0.06 K/mm3 (0.00-0.10); IMMATURE GRAN PERCENT AUTO 1 % (0-1); LYMPHOCYTES ABSOLUTE AUTO 0.87 K/mm3 (0.84-5.20); LYMPHOCYTES PERCENT AUTO 10 % (21-46); MONOCYTES ABSOLUTE AUTO 0.97 K/mm3 (0.16-1.47); MONOCYTES PERCENT AUTO 11 % (4-13); Mean Corpuscular HGB 29.9 pg (26.0-34.0); Mean Corpuscular HGB Conc 34.2 g/dL (31.5-36.5); Mean Corpuscular Volume 87 fL (80-100); NEUTROPHILS ABSOLUTE AUTO 6.71 K/mm3 (1.96-9.15); NEUTROPHILS PERCENT AUTO 78 % (41-73); Platelet Count 623 K/mm3 (150-400); RDW Coefficient Variation 15.2 % (11.7-14.2); RDW Standard Deviation 47.6 fL (35.1-46.3); Red Blood Cell Count 3.88 M/mm3 (3.80-5.20); White Blood Cell Count 8.64 K/mm3 (4.00-11.30)
[2020-09-28 12:34] LABS: Alanine Aminotransfer (ALT/SGP 23 U/L (12-78); Albumin, Blood 2.2 g/dL (3.4-5.0); Albumin/Globulin Ratio 0.5 (0.8-1.8); Alk Phos 404 U/L (50-136); Anion Gap 8 mmol/L (6-16); Aspartate Aminotrans (AST/SGOT 31 U/L (12-37); Bilirubin, Total 0.6 mg/dL (0.1-1.0); Blood Urea Nitrogen 7 mg/dL (8-24); Bun/Creatinine Ratio 18.2 (12.0-20.0); CO2, Blood 29 mmol/L (21-32); Calcium, Blood 8.9 mg/dL (8.5-10.1); Chloride, Blood 99 mmol/L (98-108); Creatinine, Blood 0.39 mg/dL (0.40-1.00); Ethanol (Alcohol), Blood, Med <3 mg/dL; Globulin, Blood 4.5 g/dL (2.2-4.0); Glomerular Filtration Rate >60 (60-); Glucose, Blood 101 mg/dL (70-99); Potassium, Blood 2.9 mmol/L (3.5-5.5); Sodium, Blood 136 mmol/L (136-145); Total Protein, Blood 6.7 g/dL (6.4-8.2)
[2020-09-28 14:45] LABS: U Amphetamine Screen Not Detected; U Barbituate Screen Not Detected; U Benzodiazapine Screen Not Detected; U Buprenorphine Screen Not Detected; U Cannabinoids Screen DETECTED; U Cocaine Screen Not Detected; U Methadone Screen Not Detected; U Methamphetamine Screen Not Detected; U Opiates Screen Not Detected; U Oxycodone Screen Not Detected; U Phencyclidine Screen Not Detected; U Propoxyphene Screen Not Detected
--- NOTE | 2020-09-29 04:38 | NUR ---
SHIFT SUMMARY ADMITTED FOR PANCREATITIS. FULL CODE. PT MAY HAVE METASTATIC LESIONS TO LIVER AND LUNGS THAT SHE IS CURRENTLY NOT AWARE OF. CONTINUOUS PULSE OX IS IN PLACE. TELEMETRY: NSR @ 96 - TACH @ 100 BPM. SHE STATES SHE IS IN CONTINUOUS PAIN. FENTANYL INCREASED THIS SHIFT, NARCAN ADDED TO EMAR - PRN, NURSE NOTIFY FOR RESPIRATORY DEPRESSION ADDED TO ORDERS THIS SHIFT. NS INFUSING @ 150 ML/HR. NEW IV IN PLACE, PREVIOUS IV DID INFILTRATE. PT DENIES N/V. SHE APPEARS WEAK AND CACHETIC, FRAIL. SHE IS NPO EXCEPT FOR MEDS AND ICE. I DID HAVE TO START CRUSHING HER MEDS SHE IS STRUGGLING WITH SWALLOWING. SHE IS A&O X2-3, VERY DROWSY. I AM DOING Q2 CIWAS FOR MY SHIFT
[2020-09-29 05:00] LABS: BASOPHILS ABSOLUTE AUTO 0.01 K/mm3 (0.00-0.23); BASOPHILS PERCENT AUTO 0 % (0-2); EOSINOPHILS ABSOLUTE AUTO 0.04 K/mm3 (0.00-0.68); EOSINOPHILS PERCENT AUTO 1 % (0-6); Hematocrit 27.5 % (33.0-51.0); Hemoglobin 9.4 g/dL (11.5-16.0); IMMATURE GRAN ABSOLUTE AUTO 0.03 K/mm3 (0.00-0.10); IMMATURE GRAN PERCENT AUTO 0 % (0-1); LYMPHOCYTES ABSOLUTE AUTO 1.16 K/mm3 (0.84-5.20); LYMPHOCYTES PERCENT AUTO 17 % (21-46); MONOCYTES ABSOLUTE AUTO 0.92 K/mm3 (0.16-1.47); MONOCYTES PERCENT AUTO 13 % (4-13); Mean Corpuscular HGB 30.3 pg (26.0-34.0); Mean Corpuscular HGB Conc 34.2 g/dL (31.5-36.5); Mean Corpuscular Volume 89 fL (80-100); Mean Platelet Volume 8.7 fL (9.1-12.4); NEUTROPHILS ABSOLUTE AUTO 4.69 K/mm3 (1.96-9.15); NEUTROPHILS PERCENT AUTO 69 % (41-73); Platelet Count 455 K/mm3 (150-400); RDW Coefficient Variation 15.3 % (11.7-14.2); RDW Standard Deviation 48.8 fL (35.1-46.3); White Blood Cell Count 6.85 K/mm3 (4.00-11.30)
[2020-09-29 05:17] LABS: Alanine Aminotransfer (ALT/SGP 18 U/L (12-78); Albumin, Blood 1.7 g/dL (3.4-5.0); Albumin/Globulin Ratio 0.4 (0.8-1.8); Alk Phos 320 U/L (50-136); Amylase, Blood 69 U/L (25-115); Anion Gap 6 mmol/L (6-16); Aspartate Aminotrans (AST/SGOT 22 U/L (12-37); Bilirubin, Total 0.5 mg/dL (0.1-1.0); Blood Urea Nitrogen 4 mg/dL (8-24); Bun/Creatinine Ratio 12.7 (12.0-20.0); CO2, Blood 27 mmol/L (21-32); Calcium, Blood 7.8 mg/dL (8.5-10.1); Chloride, Blood 104 mmol/L (98-108); Creatinine, Blood 0.32 mg/dL (0.40-1.00); Globulin, Blood 3.8 g/dL (2.2-4.0); Glomerular Filtration Rate >60 (60-); Glucose, Blood 91 mg/dL (70-99); Magnesium, Blood 1.5 mg/dL (1.6-2.4); Potassium, Blood 3.7 mmol/L (3.5-5.5); Sodium, Blood 137 mmol/L (136-145); Total Protein, Blood 5.5 g/dL (6.4-8.2)
--- NOTE | 2020-09-29 19:36 | NUR ---
SHIFT SUMMARY: NO ACUTE CHANGES TO REPORT THIS SHIFT. PT A&O; CALM AND COOPERATIVE WITH CARE; OCC FORGETFUL. MEDICATED FOR ABD PAIN AND NAUSEA PER EMAR. DIET ADVANCED FROM NPO TO CLEAR LIQUIDS THIS SHIFT; PT DID NOT TOLERATEE WELL; DIET REGRESSED TO NPO c SIPS & CHIPS. PHYSICAL THERAPY ATTEMPTED TO SEE PT THIS SHIFT; UNABLE R/T PATIENT PAIN & WEAKNESS. TELE IN PLACE; SR @ 88 DURING MORNING ASSESSMENT. REPORT GIVEN TO ONCOMING RN.
[2020-09-30 04:35] LABS: Hematocrit 29.5 % (33.0-51.0); Hemoglobin 9.9 g/dL (11.5-16.0); Mean Corpuscular HGB 30.4 pg (26.0-34.0); Mean Corpuscular HGB Conc 33.6 g/dL (31.5-36.5); Mean Corpuscular Volume 91 fL (80-100); Mean Platelet Volume 8.6 fL (9.1-12.4); Platelet Count 455 K/mm3 (150-400); RDW Coefficient Variation 15.5 % (11.7-14.2); RDW Standard Deviation 50.7 fL (35.1-46.3); Red Blood Cell Count 3.26 M/mm3 (3.80-5.20); White Blood Cell Count 8.76 K/mm3 (4.00-11.30)
[2020-09-30 04:59] LABS: Alanine Aminotransfer (ALT/SGP 15 U/L (12-78); Albumin, Blood 1.8 g/dL (3.4-5.0); Albumin/Globulin Ratio 0.5 (0.8-1.8); Alk Phos 343 U/L (50-136); Amylase, Blood 54 U/L (25-115); Anion Gap 7 mmol/L (6-16); Aspartate Aminotrans (AST/SGOT 20 U/L (12-37); Bilirubin, Total 0.3 mg/dL (0.1-1.0); Blood Urea Nitrogen 2 mg/dL (8-24); Bun/Creatinine Ratio 6.7 (12.0-20.0); CO2, Blood 28 mmol/L (21-32); Calcium, Blood 7.6 mg/dL (8.5-10.1); Chloride, Blood 101 mmol/L (98-108); Globulin, Blood 3.8 g/dL (2.2-4.0); Glomerular Filtration Rate >60 (60-); Glucose, Blood 109 mg/dL (70-99); Magnesium, Blood 1.3 mg/dL (1.6-2.4); Phosphorus, Blood 2.4 mg/dL (2.5-4.9); Potassium, Blood 2.7 mmol/L (3.5-5.5); Sodium, Blood 136 mmol/L (136-145); Total Protein, Blood 5.6 g/dL (6.4-8.2)
--- NOTE | 2020-09-30 05:56 | NUR ---
SHIFT SUMMARY ALERT, ABLE TO MAKE NEEDS KNOWN. COOPERATIVE WITH CARE. MULTIPLE REQUEST FROM STAFF T/O SHIFT. C/O PAIN/DISCOMFORT TO ABDOMEN RATED 10/10 WITH MINIMAL RELIEF; MEDICATED PER EMAR. FACE SCALE 3/10, ABLE TO CARRY ON FULL CONVERSATIONS. INCONT T/O SHIFT. STILL REQUIRES PT EVAL. HYPERTENSIVE THIS AM, BUT APPEARS ON TREND WITH PREVIOUS PRESSURES. ALL OTHER VS WNL. IV FLUIDS CONTINUE TO INFUSE WITHOUT COMPLICATION. TELE RUNNING SR IN 80s. NO ACUTE CHANGES OVERNIGHT. APPEARED TO REST SOME. BED IN LOWEST POSITION. CALL LIGHT AND BELONGINGS WITHIN REACH. CONTINUE WITH [facility] PLAN OF CARE. REPORT TO ONCOMING RN.
[2020-09-30] MEDS ORDERED: FAMO20 PO (11:57)
[2020-09-30] MEDS ORDERED: LEVFLO500 PO (11:57)
[2020-09-30] MEDS ORDERED: ONDA4ODT MM (11:58)
[2020-09-30] MEDS ORDERED: NICO21TP TOP (11:58)
[2020-09-30] MEDS ORDERED: LOPE2C PO (11:58)
[2020-09-30] MEDS ORDERED: VISBIOME 112.51 EACH PO (11:58)
[2020-09-30] MEDS ORDERED: HYDR1TAB94 PO (16:08)
--- NOTE | 2020-09-30 20:01 | NUR ---
SHIFT SUMMARY: NO ACUTE EVENTS TO REPORT THIS SHIFT. PT A&O; OCC FORGETFUL; CALM AND COOPERATIVE WITH CARE. MEDICATED FOR CHRONIC PAIN PER EMAR. MEDICALLY STABLE; AWAITING D/C TO HOME. REPORT GIVEN TO ONCOMING RN.
--- NOTE | 2020-09-30 20:53 | NUR ---
DISCHARGED TO HOME AT 2024. PATIENT GIVEN DISCHARGE INSTRUCTIONS AND TELE AND IV DC'D BY OUTGOING RN. RIDE TO HOME ARRANGED WITH [facility].
== END 2020-09-30 20:22 | disposition home or self-care (01) | DRG 438 ==
LOC: ER 10:52 → MEDS 17:35 → ENPENDDIS 09-30 11:26 → MEDS 09-30 20:22
PROVIDERS: Emergency Medicine; ADMIT Family Medicine
DX: K85.90 Acute pancreatitis without necrosis or infection, unspecified (principal); E43 Unspecified severe protein-calorie malnutrition; Z68.1 Body mass index [BMI] 19.9 or less, adult; K86.1 Other chronic pancreatitis; E87.6 Hypokalemia; J44.9 Chronic obstructive pulmonary disease, unspecified; F12.129 Cannabis abuse with intoxication, unspecified; F10.10 Alcohol abuse, uncomplicated; F17.210 Nicotine dependence, cigarettes, uncomplicated; R93.5 Abnormal findings on diagnostic imaging of other abdominal regions, including retroperitoneum; Z87.11 Personal history of peptic ulcer disease; Z86.718 Personal history of other venous thrombosis and embolism
CPT/HCPCS: 36415; 71046; 74176; 80053; 82150; 83690; 83735; 84100; 84145; 85025; 85027; 86140; 93005; 93010; 94762; 96365; 96375; 97162; 97530; 99285-25; A9270; G0480; J1170; J1650; J1956; J2060; J2405; J3010; J3411; J3475; J7030; J7042; J7050; J7060

== ENCOUNTER 2020-10-06 18:47 | Inpatient (IN) | payer OTHER ==
[~2020-10-06] VITALS: Ht 162.6 cm; Wt 35.7 kg
[~2020-10-06 18:47] MED LIST changes: +FAMO20 PO; +IBUPROFEN IB200 MG PO; +LEVFLO500 PO; +NICO21TP TOP; +VISBIOME 112.51 EACH PO
[2020-10-06 19:25] LABS: BASOPHILS ABSOLUTE AUTO 0.01 K/mm3 (0.00-0.23); BASOPHILS PERCENT AUTO 0 % (0-2); EOSINOPHILS ABSOLUTE AUTO 0.02 K/mm3 (0.00-0.68); EOSINOPHILS PERCENT AUTO 0 % (0-6); Hematocrit 30.2 % (33.0-51.0); Hemoglobin 10.3 g/dL (11.5-16.0); IMMATURE GRAN ABSOLUTE AUTO 0.09 K/mm3 (0.00-0.10); IMMATURE GRAN PERCENT AUTO 1 % (0-1); LYMPHOCYTES ABSOLUTE AUTO 0.84 K/mm3 (0.84-5.20); LYMPHOCYTES PERCENT AUTO 7 % (21-46); MONOCYTES ABSOLUTE AUTO 1.37 K/mm3 (0.16-1.47); MONOCYTES PERCENT AUTO 12 % (4-13); Mean Corpuscular HGB 29.9 pg (26.0-34.0); Mean Corpuscular HGB Conc 34.1 g/dL (31.5-36.5); Mean Corpuscular Volume 88 fL (80-100); NEUTROPHILS ABSOLUTE AUTO 9.17 K/mm3 (1.96-9.15); NEUTROPHILS PERCENT AUTO 80 % (41-73); Platelet Count 417 K/mm3 (150-400); RDW Coefficient Variation 15.9 % (11.7-14.2); RDW Standard Deviation 51.6 fL (35.1-46.3); Red Blood Cell Count 3.44 M/mm3 (3.80-5.20)
[2020-10-06 19:47] LABS: Alanine Aminotransfer (ALT/SGP 17 U/L (12-78); Albumin/Globulin Ratio 0.5 (0.8-1.8); Alk Phos 347 U/L (50-136); Anion Gap 9 mmol/L (6-16); Aspartate Aminotrans (AST/SGOT 27 U/L (12-37); Bilirubin, Total 0.4 mg/dL (0.1-1.0); Blood Urea Nitrogen 6 mg/dL (8-24); Bun/Creatinine Ratio 15.7 (12.0-20.0); CO2, Blood 31 mmol/L (21-32); Calcium, Blood 8.3 mg/dL (8.5-10.1); Chloride, Blood 94 mmol/L (98-108); Creatinine, Blood 0.38 mg/dL (0.40-1.00); Globulin, Blood 4.2 g/dL (2.2-4.0); Glomerular Filtration Rate >60 (60-); Glucose, Blood 109 mg/dL (70-99); Potassium, Blood 2.3 mmol/L (3.5-5.5); Sodium, Blood 134 mmol/L (136-145); Total Protein, Blood 6.2 g/dL (6.4-8.2)
[2020-10-07 00:24] LABS: Source, Urine Clean Catch
[2020-10-07 00:28] LABS: Bilirubin, Urine Neg (Neg); Blood, Urine Neg (Neg); Glucose Qualitative, Urine Neg (Neg); Ketones, Urine 2+ (Neg); Leukocyte Esterase, Urine Neg (Neg); Nitrite, Urine Neg (Neg); Protein, Urine 1+ (Neg); Urobilinogen, Urine 1+ (Normal)
[2020-10-07 00:31] LABS: Appearance, Urine Clear (Clear); Color, Urine Yellow (P-Yellow)
[2020-10-07 00:53] LABS: Ethanol (Alcohol), Blood, Med <3 mg/dL; Magnesium, Blood 1.2 mg/dL (1.6-2.4)
[2020-10-07 00:58] LABS: International Normalized Ratio 1.12; Prothrombin Time Results 11.9 Sec (9.7-11.5)
[2020-10-07 04:54] LABS: BASOPHILS ABSOLUTE AUTO 0.01 K/mm3 (0.00-0.23); BASOPHILS PERCENT AUTO 0 % (0-2); EOSINOPHILS ABSOLUTE AUTO 0.01 K/mm3 (0.00-0.68); EOSINOPHILS PERCENT AUTO 0 % (0-6); Hematocrit 30.5 % (33.0-51.0); Hemoglobin 10.2 g/dL (11.5-16.0); IMMATURE GRAN ABSOLUTE AUTO 0.08 K/mm3 (0.00-0.10); IMMATURE GRAN PERCENT AUTO 1 % (0-1); LYMPHOCYTES ABSOLUTE AUTO 0.73 K/mm3 (0.84-5.20); LYMPHOCYTES PERCENT AUTO 8 % (21-46); MONOCYTES ABSOLUTE AUTO 0.78 K/mm3 (0.16-1.47); MONOCYTES PERCENT AUTO 8 % (4-13); Mean Corpuscular HGB 29.7 pg (26.0-34.0); Mean Corpuscular HGB Conc 33.4 g/dL (31.5-36.5); Mean Corpuscular Volume 89 fL (80-100); NEUTROPHILS ABSOLUTE AUTO 7.99 K/mm3 (1.96-9.15); NEUTROPHILS PERCENT AUTO 83 % (41-73); Platelet Count 381 K/mm3 (150-400); RDW Coefficient Variation 15.9 % (11.7-14.2); Red Blood Cell Count 3.43 M/mm3 (3.80-5.20)
[2020-10-07 05:18] LABS: Alanine Aminotransfer (ALT/SGP 15 U/L (12-78); Albumin, Blood 1.7 g/dL (3.4-5.0); Albumin/Globulin Ratio 0.4 (0.8-1.8); Alk Phos 317 U/L (50-136); Anion Gap 6 mmol/L (6-16); Aspartate Aminotrans (AST/SGOT 25 U/L (12-37); Bilirubin, Total 0.5 mg/dL (0.1-1.0); Blood Urea Nitrogen 5 mg/dL (8-24); Bun/Creatinine Ratio 16.4 (12.0-20.0); CO2, Blood 33 mmol/L (21-32); Calcium, Blood 8.1 mg/dL (8.5-10.1); Chloride, Blood 96 mmol/L (98-108); Glomerular Filtration Rate >60 (60-); Glucose, Blood 106 mg/dL (70-99); Potassium, Blood 3.1 mmol/L (3.5-5.5); Sodium, Blood 135 mmol/L (136-145); Total Protein, Blood 5.7 g/dL (6.4-8.2)
--- NOTE | 2020-10-07 05:57 | NUR ---
SHIFT SUMMARY PT NEW ED ADMIT THIS EVENING. PT IS DECONDITIONED, CACHECTIC APPEARING. MOSTLY SLEEPING SINCE ADMISSION. PT REPORTS THAT HER PAIN IS 9/10. I ASKED HER IF THIS WAS UNCHANGED AFTER IV DILAUDID WAS GIVEN IN ED. SHE THEN TOLD ME THAT HER ABD DIDN'T HURT AT ALL AFTER IV DILAUDID BUT THAT SHE JUST "HAD A CRICK IN HER NECK AND MUST OF SLEPT WRONG". FALLING ASLEEP SHORTLY AFTER COMPLETION OF ADMISSION. POTASSIUM 2.3 IN ED, 40 MEQ PO GIVEN IN ED AND 20 MEQ IV K INFUSED. POTASSIUM IMPROVED TO 3.1. BANANA BAG INFUSING AT THIS TIME. VITAL SIGNS STABLE. AWAITING TELEMETRY UNIT FOR PLACEMENT. WILL CONTINUE TO MONITOR.
[2020-10-07 15:47] LABS: Albumin, Blood 2.2 g/dL (3.4-5.0); Anion Gap 5 mmol/L (6-16); Blood Urea Nitrogen 5 mg/dL (8-24); Bun/Creatinine Ratio 12.6 (12.0-20.0); CO2, Blood 34 mmol/L (21-32); Calcium, Blood 8.2 mg/dL (8.5-10.1); Chloride, Blood 94 mmol/L (98-108); Glomerular Filtration Rate >60 (60-); Glucose, Blood 222 mg/dL (70-99); Magnesium, Blood 2.3 mg/dL (1.6-2.4); Phosphorus, Blood 1.5 mg/dL (2.5-4.9); Potassium, Blood 3.1 mmol/L (3.5-5.5); Sodium, Blood 133 mmol/L (136-145)
--- NOTE | 2020-10-07 18:37 | NUR ---
SHIFT SUMMARY PATIENT MEDICATED X2 FOR PAIN THIS SHIFT, DENIES NAUSEA AND SHORTNESS OF BREATH. PATIENT MAINTAINING OXYGEN SATURATION ABOVE 94% ON 2L/NC. PATIENT UP SBA TO BSC. DIET ADVANCED TO CLEAR LIQUID, TOLERATING WELL. DIET ADVANCED TO FULL LIQUID FOR BREAKFAST TOMORROW. NEW ORDER FOR NICOTINE PATCH. PATIENT ASKED SEVERAL TIMES ABOUT HER POSSIBLE CANCER DIAGNOSIS. PATIENT ADVISED TO PURSUE PET SCAN OUTPATIENT PER PREVIOUS DISCHARGE INSTRUCTION.
[2020-10-08 04:51] LABS: BASOPHILS ABSOLUTE AUTO 0.01 K/mm3 (0.00-0.23); BASOPHILS PERCENT AUTO 0 % (0-2); EOSINOPHILS ABSOLUTE AUTO 0.02 K/mm3 (0.00-0.68); EOSINOPHILS PERCENT AUTO 0 % (0-6); Hematocrit 30.3 % (33.0-51.0); Hemoglobin 10.1 g/dL (11.5-16.0); IMMATURE GRAN ABSOLUTE AUTO 0.06 K/mm3 (0.00-0.10); IMMATURE GRAN PERCENT AUTO 1 % (0-1); LYMPHOCYTES ABSOLUTE AUTO 0.86 K/mm3 (0.84-5.20); LYMPHOCYTES PERCENT AUTO 8 % (21-46); MONOCYTES PERCENT AUTO 10 % (4-13); Mean Corpuscular HGB 29.6 pg (26.0-34.0); Mean Corpuscular HGB Conc 33.3 g/dL (31.5-36.5); Mean Corpuscular Volume 89 fL (80-100); Mean Platelet Volume 8.9 fL (9.1-12.4); NEUTROPHILS ABSOLUTE AUTO 8.52 K/mm3 (1.96-9.15); NEUTROPHILS PERCENT AUTO 81 % (41-73); Platelet Count 396 K/mm3 (150-400); RDW Coefficient Variation 15.7 % (11.7-14.2); RDW Standard Deviation 51.3 fL (35.1-46.3); Red Blood Cell Count 3.41 M/mm3 (3.80-5.20); White Blood Cell Count 10.57 K/mm3 (4.00-11.30)
--- NOTE | 2020-10-08 05:07 | NUR ---
FENCE MAKING MACHINE OPERATOR SUMMARY PT A/O X3 WITH FORGETFULNESS. SLEPT ON AND OFF TONIGHT. CONTINUES TO BE ON 2L O2 VIA NC MAINTAINING GOOD SATS. MEDICATED OVERNIGHT FOR ABD PAIN. PT REQUESTING MORE PAIN MEDS AFTER AN HOUR IV FENTANYL WAS GIVEN. HEATING PAD PROVIDED FOR ABD PAIN. PT DENIES NAUSEA, SOB. CALL LIGHT WITHIN REACH, BED ALARM ON. WILL CONTINUE TO MONITOR.
[2020-10-08 05:12] LABS: Albumin, Blood 2.1 g/dL (3.4-5.0); Anion Gap 6 mmol/L (6-16); Blood Urea Nitrogen 5 mg/dL (8-24); Bun/Creatinine Ratio 14.8 (12.0-20.0); CO2, Blood 35 mmol/L (21-32); Calcium, Blood 8.1 mg/dL (8.5-10.1); Chloride, Blood 93 mmol/L (98-108); Creatinine, Blood 0.34 mg/dL (0.40-1.00); Glomerular Filtration Rate >60 (60-); Glucose, Blood 104 mg/dL (70-99); Magnesium, Blood 1.7 mg/dL (1.6-2.4); Phosphorus, Blood 1.7 mg/dL (2.5-4.9); Potassium, Blood 2.5 mmol/L (3.5-5.5); Sodium, Blood 134 mmol/L (136-145)
[2020-10-08 16:27] LABS: Albumin, Blood 2.1 g/dL (3.4-5.0); Anion Gap 4 mmol/L (6-16); Blood Urea Nitrogen 7 mg/dL (8-24); Bun/Creatinine Ratio 21.3 (12.0-20.0); CO2, Blood 34 mmol/L (21-32); Calcium, Blood 8.3 mg/dL (8.5-10.1); Chloride, Blood 94 mmol/L (98-108); Creatinine, Blood 0.33 mg/dL (0.40-1.00); Glomerular Filtration Rate >60 (60-); Glucose, Blood 112 mg/dL (70-99); Potassium, Blood 3.9 mmol/L (3.5-5.5); Sodium, Blood 132 mmol/L (136-145)
--- NOTE | 2020-10-08 18:44 | NUR ---
SHIFT SUMMARY. A&OX3, INTERMITTENT FORGETFULNESS, USES CALL LIGHT APPROPRIATELY, MIXED CONTINENCE. PT CONTINUES WITH ABD PAIN R/T CHRONIC PANCREATITIS, PAIN MANAGED WELL WITH CURRENT ORDERS. PT DENIES SOB, N/V. CONTINUES ON 2L O2 NC. POTTASSIUM AND MAGNESIUM REPLACED. NO OTHER CHANGES OR CONCERNS.
[2020-10-09 04:31] LABS: BASOPHILS ABSOLUTE AUTO 0.01 K/mm3 (0.00-0.23); BASOPHILS PERCENT AUTO 0 % (0-2); EOSINOPHILS ABSOLUTE AUTO 0.03 K/mm3 (0.00-0.68); EOSINOPHILS PERCENT AUTO 0 % (0-6); Hematocrit 32.2 % (33.0-51.0); Hemoglobin 10.8 g/dL (11.5-16.0); IMMATURE GRAN PERCENT AUTO 1 % (0-1); LYMPHOCYTES ABSOLUTE AUTO 1.01 K/mm3 (0.84-5.20); LYMPHOCYTES PERCENT AUTO 9 % (21-46); MONOCYTES ABSOLUTE AUTO 1.24 K/mm3 (0.16-1.47); MONOCYTES PERCENT AUTO 11 % (4-13); Mean Corpuscular HGB 29.8 pg (26.0-34.0); Mean Corpuscular HGB Conc 33.5 g/dL (31.5-36.5); Mean Corpuscular Volume 89 fL (80-100); Mean Platelet Volume 9.2 fL (9.1-12.4); NEUTROPHILS ABSOLUTE AUTO 9.34 K/mm3 (1.96-9.15); NEUTROPHILS PERCENT AUTO 80 % (41-73); Platelet Count 425 K/mm3 (150-400); RDW Coefficient Variation 15.9 % (11.7-14.2); RDW Standard Deviation 51.5 fL (35.1-46.3); Red Blood Cell Count 3.63 M/mm3 (3.80-5.20); White Blood Cell Count 11.73 K/mm3 (4.00-11.30)
[2020-10-09 04:55] LABS: Albumin, Blood 2.1 g/dL (3.4-5.0); Anion Gap 5 mmol/L (6-16); Blood Urea Nitrogen 6 mg/dL (8-24); Bun/Creatinine Ratio 19.2 (12.0-20.0); CO2, Blood 35 mmol/L (21-32); Calcium, Blood 8.6 mg/dL (8.5-10.1); Chloride, Blood 94 mmol/L (98-108); Creatinine, Blood 0.31 mg/dL (0.40-1.00); Glomerular Filtration Rate >60 (60-); Glucose, Blood 122 mg/dL (70-99); Magnesium, Blood 1.6 mg/dL (1.6-2.4); Potassium, Blood 3.5 mmol/L (3.5-5.5); Sodium, Blood 134 mmol/L (136-145)
--- NOTE | 2020-10-09 06:16 | NUR ---
AUTO INSPECTOR SUMMARY PT A/O X3 WITH FORTGETFULNESS. PT HAS BEEN REQUESTING PAIN MEDS FREQUENTLY, EVEN AFTER BEING WOKEN UP FOR CARE THE FIRST THING PT MENTIONS IS "DO YOU HAVE MY PAIN MED?". PT HAS CHRONIC PANCREATITIS, ABD PAIN. TUMS ORDERED EARILER IN SHIFT. PT HAS SLEPT ON AND OFF TONIGHT. USES CALL LIGHT APPROPRIATELY. SBA TO BSC. CONTINUES TO BE ON 1L O2 VIA NC. CALL LIGHT WITHIN REACH, BED ALARM ON. DENIES SOB, NAUSEA.
--- NOTE | 2020-10-09 18:12 | NUR ---
SHIFT SUMMARY. A&OX3, INTERMITTENT FORGETFULNESS. PT C/O CHRONIC PAIN TO ABD SECONDARY TO PANCREATITIS THROUGHOUT THE SHIFT THAT HAS BEEN MANAGED WELL WITH CURRENT ORDERS. NO N/V, OR SOB. ATTEMPTED TO GET PT OOB FOR EACH MEAL AND PT DECLINED EACH TIME. PT BECAME TEARFUL THIS AFTERNOON WHILE DR. WEEKS EXPLAINED IMAGING RESULTS, DR. WEEKS REPORTED THAT HE WOULD SPEAK WITH PT'S DAUGHTER ON THE PHONE TODAY. NO OTHER CHANGES OR CONCERNS.
--- NOTE | 2020-10-10 04:47 | NUR ---
GROUP EXERCISE CLASS INSTRUCTOR SUMMARY PT A/O X3 WITH FORGETFULNESS. MEDICATED FOR CHRONIC ABD PAIN OVERNIGHT. DENIES SOB, NAUSEA. USES CALL LIGHT APPROPRIATELY. SR IN THE 80'S PER SOLAR THERMAL TECHNICIAN. CONT/INCONT TO URINE. VSS. CONTINUES TO BE ON 1L O2 VIA NC MAINTAINING GOOD O2 SATS. NO ACUTE CHANGES. CALL LIGHT WITHIN REACH, BED ALARM ON.
[2020-10-10 05:00] LABS: Anion Gap 4 mmol/L (6-16); Blood Urea Nitrogen 9 mg/dL (8-24); Bun/Creatinine Ratio 23.1 (12.0-20.0); CO2, Blood 34 mmol/L (21-32); Calcium, Blood 8.4 mg/dL (8.5-10.1); Chloride, Blood 96 mmol/L (98-108); Creatinine, Blood 0.39 mg/dL (0.40-1.00); Glomerular Filtration Rate >60 (60-); Glucose, Blood 147 mg/dL (70-99); Sodium, Blood 134 mmol/L (136-145)
[2020-10-10] MEDS ORDERED: TUMS500 MG PO (11:52)
[2020-10-10] MEDS ORDERED: Percocet 5-3251 EACH PO (11:53)
[2020-10-10] MEDS ORDERED: PANT40 PO (11:53)
[2020-10-10] MEDS ORDERED: TRAZ50 PO (11:55)
--- NOTE | 2020-10-10 13:55 | NUR ---
DISCHARGE NOTE PATIENT DISCHARGED TO HOME. PATIENT ALERT & ORIENTED THIS SHIFT, FORGETFUL. PATIENT MEDICATED FOR PAIN IN HER ABDOMEN THIS AM, STATES PAIN IS CHRONIC, DISCHARGE WITH PAIN MEDICATIONS ORDERS. PATIENT PROVIDED WITH DISCHARGE AND MEDICATION INSTRUCTIONS. PATIENT DENIES QUESTIONS AT THIS TIME. IV REMOVED PRIOR TO DISCHARGE. PATIENT DRESSED WITH MINIMAL ASSISTANCE FROM INDIGO VAT TENDER CLOTH. PATIENT TRANSPORTED VIA [facility] TO [facility] WHERE HER DAUGHTER IS STAYING. PATIENT TO [facility] VIA WHEELCHAIR BY INDIGO VAT TENDER CLOTH.
== END 2020-10-10 12:35 | disposition home or self-care (01) | DRG 438 ==
LOC: ER 18:47 → MEDS 10-07 02:43 → ENPENDDIS 10-10 12:09 → MEDS 10-10 12:35
PROVIDERS: Hospitalist; Internal Medicine; Physician Assistant; ADMIT Internal Medicine
DX: K85.90 Acute pancreatitis without necrosis or infection, unspecified (principal); I81 Portal vein thrombosis; E43 Unspecified severe protein-calorie malnutrition; E87.1 Hypo-osmolality and hyponatremia; K86.2 Cyst of pancreas; K86.1 Other chronic pancreatitis; J44.9 Chronic obstructive pulmonary disease, unspecified; E87.6 Hypokalemia; E83.39 Other disorders of phosphorus metabolism; E83.42 Hypomagnesemia; E86.0 Dehydration; E88.09 Other disorders of plasma-protein metabolism, not elsewhere classified; F17.210 Nicotine dependence, cigarettes, uncomplicated; B19.20 Unspecified viral hepatitis C without hepatic coma; Z87.11 Personal history of peptic ulcer disease; R91.8 Other nonspecific abnormal finding of lung field; Z68.20 Body mass index [BMI] 20.0-20.9, adult
CPT/HCPCS: 36415; 80048; 80053; 80069; 83690; 83735; 83880; 84100; 85025; 85610; 96365; 96366; 96367; 96372; 96375; 96376; 97110; 97161; 99285; A9270; C9113; G0378; G0480; J1170; J1650; J3010; J3411; J3475; J3480; J7042; J7060; J7120; P9046

== ENCOUNTER 2020-10-12 20:55 | Inpatient (IN) | payer OTHER ==
[~2020-10-12] VITALS: Ht 157.5 cm; Wt 35.5 kg
[~2020-10-12 20:55] MED LIST changes: +PANT40 PO; +TRAZ50 PO; +TUMS500 MG PO
[2020-10-12 22:11] LABS: BASOPHILS ABSOLUTE AUTO 0.01 K/mm3 (0.00-0.23); BASOPHILS PERCENT AUTO 0 % (0-2); EOSINOPHILS ABSOLUTE AUTO 0.01 K/mm3 (0.00-0.68); EOSINOPHILS PERCENT AUTO 0 % (0-6); Hematocrit 29.7 % (33.0-51.0); Hemoglobin 10.1 g/dL (11.5-16.0); IMMATURE GRAN PERCENT AUTO 1 % (0-1); LYMPHOCYTES ABSOLUTE AUTO 0.79 K/mm3 (0.84-5.20); LYMPHOCYTES PERCENT AUTO 7 % (21-46); MONOCYTES PERCENT AUTO 11 % (4-13); Mean Corpuscular HGB 29.7 pg (26.0-34.0); Mean Corpuscular Volume 87 fL (80-100); Mean Platelet Volume 9.2 fL (9.1-12.4); NEUTROPHILS ABSOLUTE AUTO 9.01 K/mm3 (1.96-9.15); NEUTROPHILS PERCENT AUTO 81 % (41-73); Platelet Count 343 K/mm3 (150-400); RDW Coefficient Variation 15.3 % (11.7-14.2); RDW Standard Deviation 49.1 fL (35.1-46.3); White Blood Cell Count 11.12 K/mm3 (4.00-11.30)
[2020-10-12 22:30] LABS: Magnesium, Blood 1.4 mg/dL (1.6-2.4)
[2020-10-12 22:39] LABS: Alanine Aminotransfer (ALT/SGP 54 U/L (12-78); Albumin, Blood 2.2 g/dL (3.4-5.0); Albumin/Globulin Ratio 0.6 (0.8-1.8); Alk Phos 374 U/L (50-136); Anion Gap 9 mmol/L (6-16); Aspartate Aminotrans (AST/SGOT 145 U/L (12-37); Bilirubin, Total 0.5 mg/dL (0.1-1.0); Blood Urea Nitrogen 13 mg/dL (8-24); Bun/Creatinine Ratio 26.9 (12.0-20.0); CO2, Blood 30 mmol/L (21-32); Calcium, Blood 8.3 mg/dL (8.5-10.1); Chloride, Blood 93 mmol/L (98-108); Creatinine, Blood 0.48 mg/dL (0.40-1.00); Globulin, Blood 3.9 g/dL (2.2-4.0); Glomerular Filtration Rate >60 (60-); Glucose, Blood 115 mg/dL (70-99); Potassium, Blood 2.3 mmol/L (3.5-5.5); Sodium, Blood 132 mmol/L (136-145); Total Protein, Blood 6.1 g/dL (6.4-8.2)
[2020-10-13 04:51] LABS: BASOPHILS ABSOLUTE AUTO 0.01 K/mm3 (0.00-0.23); BASOPHILS PERCENT AUTO 0 % (0-2); EOSINOPHILS ABSOLUTE AUTO 0.03 K/mm3 (0.00-0.68); EOSINOPHILS PERCENT AUTO 0 % (0-6); Hemoglobin 11.6 g/dL (11.5-16.0); IMMATURE GRAN PERCENT AUTO 1 % (0-1); LYMPHOCYTES ABSOLUTE AUTO 1.18 K/mm3 (0.84-5.20); LYMPHOCYTES PERCENT AUTO 10 % (21-46); MONOCYTES ABSOLUTE AUTO 1.31 K/mm3 (0.16-1.47); MONOCYTES PERCENT AUTO 11 % (4-13); Mean Corpuscular HGB 29.6 pg (26.0-34.0); Mean Corpuscular HGB Conc 34.1 g/dL (31.5-36.5); Mean Corpuscular Volume 87 fL (80-100); Mean Platelet Volume 9.1 fL (9.1-12.4); NEUTROPHILS ABSOLUTE AUTO 9.68 K/mm3 (1.96-9.15); NEUTROPHILS PERCENT AUTO 79 % (41-73); Platelet Count 344 K/mm3 (150-400); RDW Coefficient Variation 15.4 % (11.7-14.2); RDW Standard Deviation 48.9 fL (35.1-46.3); Red Blood Cell Count 3.92 M/mm3 (3.80-5.20); White Blood Cell Count 12.31 K/mm3 (4.00-11.30)
[2020-10-13 05:10] LABS: Alanine Aminotransfer (ALT/SGP 59 U/L (12-78); Albumin, Blood 2.2 g/dL (3.4-5.0); Albumin/Globulin Ratio 0.6 (0.8-1.8); Alk Phos 374 U/L (50-136); Anion Gap 5 mmol/L (6-16); Aspartate Aminotrans (AST/SGOT 114 U/L (12-37); Bilirubin, Total 0.6 mg/dL (0.1-1.0); Blood Urea Nitrogen 12 mg/dL (8-24); Bun/Creatinine Ratio 27.7 (12.0-20.0); CO2, Blood 31 mmol/L (21-32); Calcium, Blood 8.2 mg/dL (8.5-10.1); Chloride, Blood 95 mmol/L (98-108); Creatinine, Blood 0.43 mg/dL (0.40-1.00); Glomerular Filtration Rate >60 (60-); Glucose, Blood 122 mg/dL (70-99); Potassium, Blood 2.8 mmol/L (3.5-5.5); Sodium, Blood 131 mmol/L (136-145); Total Protein, Blood 6.2 g/dL (6.4-8.2)
--- NOTE | 2020-10-13 06:38 | NUR ---
SHIFTS SUMMARY: PATIENT HAS LOST IV ACCESS. MULTIPLE ATTEMPS BY THIS FOOD SPECIALIST. WHITLEY COTTRELL IS NOW ATTEMPTING. PATIENT NEEDS MULTIPLE SITES FOR MED INCOMPATABILITY. REPORTING ABD. PAIN 10/10, IV FENTANYL WAS GIVEN WITH GOOD EFFECT X1. PATIENT WAS ABLE TO SLEEP AFTER DOSE WAS GIVEN. CIWA SCORE IS A 2.
--- NOTE | 2020-10-13 16:29 | NUR ---
PATIENT IS ALERT AND ORIENTED AND COOPERATIVE WITH CARE. A 20G IV WAS PLACED IN THE DAVID THIS MORNING. IV FLUIDS HAVE BEEN INFUSING ALL DAY. PATIENT C/O ABDOMINAL PAIN, TREATED PER EMAR. PATIENT STATES THAT SHE LIVES WITH HER SON. WILL CONTINUE TO MONITOR
--- NOTE | 2020-10-14 05:22 | NUR ---
SHIFT SUMMARY: NO ACUTE CHANGES, VSS, USING ICE CHIPS SPARINGLY PAIN IS WELL CONTROLED WITH IV DILAUDID X2, NO NAUSEA. FAMILY WAS UPDATED TWICE VIA PHONE.
[2020-10-14 05:28] LABS: BASOPHILS ABSOLUTE AUTO 0.01 K/mm3 (0.00-0.23); BASOPHILS PERCENT AUTO 0 % (0-2); EOSINOPHILS PERCENT AUTO 0 % (0-6); Hematocrit 29.7 % (33.0-51.0); Hemoglobin 9.6 g/dL (11.5-16.0); IMMATURE GRAN ABSOLUTE AUTO 0.12 K/mm3 (0.00-0.10); IMMATURE GRAN PERCENT AUTO 1 % (0-1); LYMPHOCYTES ABSOLUTE AUTO 0.73 K/mm3 (0.84-5.20); LYMPHOCYTES PERCENT AUTO 7 % (21-46); MONOCYTES ABSOLUTE AUTO 0.98 K/mm3 (0.16-1.47); MONOCYTES PERCENT AUTO 9 % (4-13); Mean Corpuscular HGB 29.5 pg (26.0-34.0); Mean Corpuscular HGB Conc 32.3 g/dL (31.5-36.5); Mean Corpuscular Volume 91 fL (80-100); Mean Platelet Volume 9.5 fL (9.1-12.4); NEUTROPHILS PERCENT AUTO 83 % (41-73); Platelet Count 333 K/mm3 (150-400); RDW Coefficient Variation 15.9 % (11.7-14.2); RDW Standard Deviation 52.9 fL (35.1-46.3); Red Blood Cell Count 3.25 M/mm3 (3.80-5.20); White Blood Cell Count 11.04 K/mm3 (4.00-11.30)
[2020-10-14 06:18] LABS: Alanine Aminotransfer (ALT/SGP 37 U/L (12-78); Albumin/Globulin Ratio 0.5 (0.8-1.8); Alk Phos 310 U/L (50-136); Anion Gap 5 mmol/L (6-16); Aspartate Aminotrans (AST/SGOT 36 U/L (12-37); Bilirubin, Total 0.6 mg/dL (0.1-1.0); Blood Urea Nitrogen 8 mg/dL (8-24); Bun/Creatinine Ratio 20.6 (12.0-20.0); CO2, Blood 28 mmol/L (21-32); Calcium, Blood 8.2 mg/dL (8.5-10.1); Chloride, Blood 99 mmol/L (98-108); Creatinine, Blood 0.39 mg/dL (0.40-1.00); Globulin, Blood 3.8 g/dL (2.2-4.0); Glomerular Filtration Rate >60 (60-); Glucose, Blood 124 mg/dL (70-99); Potassium, Blood 3.4 mmol/L (3.5-5.5); Sodium, Blood 132 mmol/L (136-145); Total Protein, Blood 5.8 g/dL (6.4-8.2)
--- NOTE | 2020-10-14 12:13 | NUR ---
PT TALKING ON PHONE. VISITING. WATCHING TV. STATES PAIN IN ABD 04/16. MED WITH DILAUDID PER EMAR. WILL FOLLOW . PT STATES DOES NOT DO MUCH. IS QUITE QUESTIONING ON JUST WHAT PAIN MED IS GIVEN. JUST GAVE FENTANYL PATCH. STATES PATCH WILL DO NOTHING.
--- NOTE | 2020-10-14 12:21 | NUR ---
Pt resting in bed and is reporting 8/10 pain in her abdomen. Pt reports mild but manageable dyspnea. Moderate anxiety reported due to pain and just learning about her cancer diagnosis. Pt reports fear and plans to pursue treatment if available. Validated concerns and continued therapeutic listening. Pt reports currently living with a friend but is considering moving back in with her son Nnamdi. Continued therapeutic listening. Bedside RONIT Griffin in to provide Fentanyl patch. Pt now reporting 10/10 pain. Received verbal permission from Pt to call and talk with children Miracle and Nnamdi. Ended visit to allow Pt to rest. Spoke with Bedside RONIT Griffin and discussed case. Spoke with Dr Billings and discussed case. Attempted to contact Pt's daughter Miracle, left message on voicemail with request for return phone call. No number listed for Pt's son Nnamdi, Pt does not have his phone number memorized. Palliative Care will remain available.
--- NOTE | 2020-10-14 16:56 | NUR ---
Received call from Pt's son Nnamdi requesting information about visitor policy. Provided information over the phone. Son expresses appreciation. Pt sitting up in bed. Dr Billings and Pt's daughter Miracle at bedside. Dr Billings providing update to daughter regarding plan of care and discussion regarding cancer. Code status discussed. Provided education on life sustaining treatment including risk factors and implications. Pt reports wishes to remain a full code. Dr Billings grants permission for pj Coto to visit today as well. Pt's mentation appears altered and forgetful. Placed order for Toradol 15mg IV Q 6 hours PRN for pain per V/O from Dr Billings. Palliative Care will remain available.
--- NOTE | 2020-10-14 18:52 | NUR ---
PT CONTINUES TO BE COMPLAINING OF PAIN. DISCUSSED THE PAIN SCALES WITH HER AT LENGTH. NOT SURE SHE REALLY UDERSTANDS. SPOKE TO SON WHO HAS SEEN HER MUCH RECENTLY. STATES SHE OFTEN NOT FOLLOWING THOUGHTS FULLY. DR STARTED ON FENTANYL PATCH\ & TORADOL TODAY. STILL HAVE DILAUDID FOR BREAKTHRU. PT STATES SOME OVERALL IMPROVED. WAS ABLE TO TURN O2 DOWN TO 2L FOR LATE THIS AFT. O2 REMAINED AT 96% SATS. ON 2L AT PRESENT IS SAT-ING 97%. NO OTHER CONCERNS NOTED TODAY. BED IN LOW POSITION, CALL LITE IN REACH, BED ALARM ON FOR SAFETY
--- NOTE | 2020-10-15 14:10 | NUR ---
Met with pt today to discuss goals of care. After discussion with pt's eldest daughter Miracle, pt's code status is changed to DNR at Miracle's request, as pt doesn't have the insight to understand the consequences and gravity of the current situation. Pt also placed on Comfort Care. When I sat with pt this am, we were discussing her care needs, and when I mentioned cancer, the patient stated, "I have cancer? Oh my God". However, it is noted in pt's chart that she is aware she has cancer, and forgets often. The pt does state she wants to leave the hospital, and would be accepting of hospice services in her son Nnamdi's home. Spoke to Zaina, Nnamdi's by phone and she states she and Nnamdi are supportive of this plan, and are planning to take pt into their care upon discharge from the hospital. manager med surg Molly is working on getting hospice in place as early as tomorrow if they're available to admit the patient.
--- NOTE | 2020-10-15 18:13 | NUR ---
Pt's son Travis drove from [place] today to see pt. He talked with Dr. Jamison, and stated he wants to review his mom's options. However, the pt has become laser focused on going home to Nnamdi and Zaina's house. This is where she lived for years, and they are willing to take her home with hospice. The pt's sons Travis and Nnamdi were both hesitant to bypass oncology, but after speaking to Dr. Villa, and after pt made the decision of comfort care, they are now on board. Plan: Pt to go home tomorrow with [facility], who are able to admit her to hospice services tomorrow. Both family and patient are now on board with this plan. Spoke to RONIT Landis at [facility]. Sending pt's info via fax to [facility], and they will follow up with hospital, pt and family for discharge plan.
--- NOTE | 2020-10-15 18:19 | NUR ---
SHIFT SUMMARY PATIENT MEDICATED X4 FOR PAIN, DENIES NAUSEA AND SHORTNESS OF BREATH. PALLATIVE CARE TALKED WITH PATIENT. PALLATIVE CARE MET WITH PATIENT AND FAMILY. PATIENT CHANGED TO DNR/COMFORT CARE STATUS. PATIENT STATES SHE DOES NOT WANT TO PURSUE CHEMOTHERAPY OR TREATMENT. PATIENT WOULD LIKE TO GO HOME. HOSPICE DISCHARGE HOME WITH SON PENDING. PATIENT TOLERATING FOOD WELL. FAMILY VISITING DURING AFTERNOON. COMFORT CART ORDERED.
--- NOTE | 2020-10-15 19:14 | NUR ---
CHANGE: [facility] is unable to admit pt due to distance. Plan to call [facility] and [facility] for availability.
--- NOTE | 2020-10-16 05:50 | NUR ---
SHIFT SUMMARY PT HAS RESTED OFF AND ON T/O THE SHIFT MEDICATED FREQUENTLY FOR PAIN PRN PER ORDERS. PT WILL ANSWER QUESTIONS APPROPRIATELY, BUT APPEARS SPACEY AT TIMES AND IS SLOW TO RESPOND. VERY POOR SHORT TERM MEMORY, WILL ASK A QUESTION AND REPEAT THE QUESTION WITHIN A SHORT SPAN OF TIME. PER PALLATIVE CARE NOTES, PT FORGOT SHE HAD CANCER. PT EXPRESSED THIS SHIFT APPROX SHORTLY AFTER MIDNIGHT THAT AFTER SEEING HER KIDS YESTERDAY THAT SHE NO LONGER WANTS TO BE DNR, AND WOULD LIKE TO BE FULL CODE. SHE HAD A HARD TIME UNDERSTANDING THE DIFFERENCES BETWEEN THE TWO. PT APPEARS TO NOT FULLY BE AWARE OF WHAT IS GOING ON, HER ILLNESS OR THE GRAVITY OF HER SITUATION. DR. WILSON NOTIFED OF PT STATEMENTS, AND HER WISHES. NO CHANGE IN CODE STATUS AT THIS TIME. CODE STATUS TO BE ADDRESSED WITH ATTENDING DURING DAYSHIFT. FURNACE COMBUSTION ANALYST'S AWARE.
--- NOTE | 2020-10-16 10:39 | NUR ---
ANXIETY PATIENT HAD INCREASED FREQUENCY OF REQUESTS FOR PAIN MEDICATIONS. UPON DISCUSSION WITH PATIENT, SHE STATES PAIN HAS NOT INCREASED, BUT THAT SHE IS ANXIOUS AND RESTLESS FOR DISCHRGE AND HER DIAGNOSIS. IV AITVAN GIVEN X1 TO GOOD EFFECT. PROVIDED COMFORT REASSURANCE TO PATIENT, REPOSITIONED, AND PATIENT IS NAPPING AT THIS TIME.
[2020-10-16 11:23] LABS: Hematocrit 28.8 % (33.0-51.0); Hemoglobin 9.3 g/dL (11.5-16.0); Mean Corpuscular HGB 29.5 pg (26.0-34.0); Mean Corpuscular HGB Conc 32.3 g/dL (31.5-36.5); Mean Corpuscular Volume 91 fL (80-100); Mean Platelet Volume 9.3 fL (9.1-12.4); Platelet Count 267 K/mm3 (150-400); RDW Coefficient Variation 15.9 % (11.7-14.2); RDW Standard Deviation 52.9 fL (35.1-46.3); Red Blood Cell Count 3.15 M/mm3 (3.80-5.20); White Blood Cell Count 10.05 K/mm3 (4.00-11.30)
[2020-10-16 11:47] LABS: Alanine Aminotransfer (ALT/SGP 22 U/L (12-78); Albumin/Globulin Ratio 0.5 (0.8-1.8); Alk Phos 350 U/L (50-136); Anion Gap 3 mmol/L (6-16); Aspartate Aminotrans (AST/SGOT 18 U/L (12-37); Bilirubin, Total 0.3 mg/dL (0.1-1.0); Blood Urea Nitrogen 9 mg/dL (8-24); Bun/Creatinine Ratio 21.6 (12.0-20.0); CO2, Blood 30 mmol/L (21-32); Calcium, Blood 8.9 mg/dL (8.5-10.1); Chloride, Blood 99 mmol/L (98-108); Creatinine, Blood 0.42 mg/dL (0.40-1.00); Globulin, Blood 3.8 g/dL (2.2-4.0); Glomerular Filtration Rate >60 (60-); Glucose, Blood 117 mg/dL (70-99); Potassium, Blood 3.2 mmol/L (3.5-5.5); Sodium, Blood 132 mmol/L (136-145); Total Protein, Blood 5.8 g/dL (6.4-8.2)
--- NOTE | 2020-10-16 17:15 | NUR ---
SHIFT SUMMARY PATIENT HAS BEEN MEDICATED FOR PAIN X1. SHE HAS BEEN MEDICATED FOR ANXIETY X2. PATIENT DENIES NAUSEA AND SHORTNESS OF BREATH. PATIENT SLEPT MOST OF SHIFT. PATIENT CONFIRMED SHE WISHES TO STAY DNR STATUS AND GO HOME ON HOSPICE. POSSIBLE HOSPICE DISCHARGE TOMORROW WITH [facility]. FAMILY AT BEDSIDE THIS AFTERNOON. EATING AND DRINKING WELL.
--- NOTE | 2020-10-17 05:25 | NUR ---
SHIFT SUMMARY PT HAS RESTED MOST OF THE NIGHT. REQUESTS PAIN MEDICATIONS WHEN AWAKE, MEDICATED PER EMAR ORDERS. PT FORGETFUL, BUT IS RESPONSIVE TO QUESTIONS. NO CALLS OR VISITS FROM FAMILY THIS SHIFT. PT TO POSSIBLY DISCHARGE HOME ON HOSPICE TODAY IF ARRANGEMENTS CAN BE MADE. COMFORT ASSESSMENT T/O SHIFT. BED IN LOWEST POSITION, CALL LIGHT WITHIN REACH.
[2020-10-17] MEDS ORDERED: ATROPINE SULFATE2 M5 SL (10:48)
[2020-10-17] MEDS ORDERED: DOCU100 PO (10:49)
[2020-10-17] MEDS ORDERED: FENTANYL1 EA10 TOP (10:52)
[2020-10-17] MEDS ORDERED: Ativan1 MG PO (10:53)
[2020-10-17] MEDS ORDERED: MORP20L SL (10:55)
[2020-10-17] MEDS ORDERED: TRANSDERM-SCOP1 EAC4 TD (10:56)
[2020-10-17] MEDS ORDERED: LEVFLO500 PO (10:59)
--- NOTE | 2020-10-17 12:03 | NUR ---
DISCHARGE PATIENT DISCHARGED ON HOSPICE HOME WITH HER SON ELLA. [facility] INTAKE NURSE TO MEET PATIENT AT THE HOUSE. PATIENT TRANPORTED VIA [employer] [facility]. DISCHARGE PACKET AND POLST WITH SALES BRANCH MANAGER. PER FLOWER SHOP MANAGER, PATIENT'S FRIEND VIKY, WHO WAS AT BEDSIDE FOR DISCHARGE, MAY FILL PATIENT'S PRESCRIPTIONS AND DELIVER THEM TO THE PATIENT AT HOME. HARD COPY SCRIPTS GIVEN TO VIKY. PATIENT PREMEDICATED FOR TRANSPORT. IV REMOVED WITHOUT ISSUE. BELONGINGS WITH PATIENT.
== END 2020-10-17 12:10 | disposition hospice, home (50) | DRG 438 ==
LOC: ER 20:55 → MEDS 10-13 02:47 → ENPENDDIS 10-17 10:01 → MEDS 10-17 12:10
PROVIDERS: Internal Medicine; Physician Assistant; ADMIT Internal Medicine
DX: K85.90 Acute pancreatitis without necrosis or infection, unspecified (principal); J18.9 Pneumonia, unspecified organism; I81 Portal vein thrombosis; E87.1 Hypo-osmolality and hyponatremia; J44.0 Chronic obstructive pulmonary disease with (acute) lower respiratory infection; R64 Cachexia; C79.51 Secondary malignant neoplasm of bone; Z68.1 Body mass index [BMI] 19.9 or less, adult; C78.7 Secondary malignant neoplasm of liver and intrahepatic bile duct; E87.6 Hypokalemia; Z88.5 Allergy status to narcotic agent; E83.39 Other disorders of phosphorus metabolism; E83.42 Hypomagnesemia; F17.210 Nicotine dependence, cigarettes, uncomplicated; F10.20 Alcohol dependence, uncomplicated; Z87.11 Personal history of peptic ulcer disease; Z90.49 Acquired absence of other specified parts of digestive tract; Z98.890 Other specified postprocedural states; Z79.899 Other long term (current) drug therapy; Z98.51 Tubal ligation status
CPT/HCPCS: 36415; 74177; 80053; 82105; 82607; 82746; 83690; 83735; 85025; 85027; 85651; 86301; 93005; 93010; 96365; 96367; 96375; 96376; 99285-25; A9270; A9270-GY; C9113; J0692; J1170; J1650; J1885; J1956; J2060; J2405; J3010; J3411; J3475; J3480; J7042; J7050; Q9967